=== PATIENT | male | born 1940 ===

== ENCOUNTER 2018-03-23 14:29 | Inpatient (IN) | payer OTHER ==
[2018-03-23 18:43] VITALS: BMI 28.0
--- NOTE | 2018-03-23 21:04 | CP.PCM.HP ---
History of Present Illness - History of Present Illness History of Present Illness: PMD: Nilson Richmond MD Chief Complaint: Right knee Surgery The patient was seen and examined in the TCU HPI: 77 years old male with hx of CAD, HTN, Hearing impairment and osteoarthritis was transferred from the [facility] here to the [facility] for continued treatment. He was admitted to the [facility] on 03/20/18 for an elective Right Total knee replacement. He is now post surgery only referring mild to moderate pain to the right knee, no fever, no bleeding. He does refer SOB and coughing. PMH: CAD; HTN; HLD; Generalized Tremors; Hearing impairment; Bilateral Cataract ; Anxiety; Arthritis PSH: PTCA; Right shoulder Fracture repaired SH: Never Smoked; No illegal drug use; No Alcohol; Live alone FH: States: No known family Hx Allergies: NKDA Medication: Reviewed Present on Admission - Present on Admission Any Indicators Present on Admission: No History of DVT/PE: No History of Uncontrolled Diabetes: No Urinary Catheter: No Decubitus Ulcer Present: No Review of Systems - Constitutional Constitutional: absent: Fatigue, Fever, Headache - EENT Eyes: absent: Floaters, Itchy Eyes, Requires Corrective Lenses, Sees Flashes Ears: absent: Decreased Hearing, Ear Pain, Tinnitus Nose/Mouth/Throat: absent: Epistaxis, Nasal Congestion - Cardiovascular Cardiovascular: Dyspnea. absent: Chest Pain, Edema - Respiratory Respiratory: Cough, Dyspnea. absent: Wheezing, Stridor - Gastrointestinal Gastrointestinal: Abdominal Pain, Belching, Constipation, Nausea, Vomiting - Musculoskeletal Additional comments: Right knee Total Replacement - Integumentary Integumentary: absent: Pruritus, Rash, Skin Ulcer, Sores, Striae, Swelling - Neurological Neurological: absent: Confusion, Dizziness, Numbness, Focal Weakness, Weakness - Psychiatric Psychiatric: Anxiety. absent: Depression, Panic Attacks - Endocrine Endocrine: absent: Palpitations, Polydipsia, Polyphagia, Polyuria - Hematologic/Lymphatic Hematologic: absent: Easy Bleeding, Easy Bruising Past Patient History - Past Medical History & Family History Past Medical History?: Yes - Past Social History Smoking Status: Never Smoked Chewing Tobacco Use: No Cigar Use: No Alcohol: None Drugs: Denies Home Situation {Lives}: With Family - CARDIAC Hx Cardiac Disorders: Yes Hx Hypercholesterolemia: Yes Hx Hypertension: Yes - PULMONARY Hx Respiratory Disorders: No - NEUROLOGICAL Hx Neurological Disorder: Yes Hx Dizziness: Yes (NO MEDICATIONS FOR DIZZINESS) Other/Comment: GENERALIZED TREMORS NO DX - HEENT Hx HEENT Problems: Yes (DECREASED IN HEARING-NO HEARING AIDS) Hx Cataracts: Yes (BILAT. NO SURGERY) - RENAL Hx Chronic Kidney Disease: No - ENDOCRINE/METABOLIC Hx Endocrine Disorders: No - MUSCULOSKELETAL/RHEUMATOLOGICAL Hx Arthritis: Yes - GASTROINTESTINAL Hx Gastrointestinal Disorders: No - GENITOURINARY/GYNECOLOGICAL Hx Genitourinary Disorders: No - PSYCHIATRIC Hx Substance Use: No - SURGICAL HISTORY Hx Surgeries: Yes Hx Angioplasty: Yes (X 8- 10 YEARS AGO) Hx Cardiac Catheterization: Yes Hx Orthopedic Surgery: Yes (right shoulder) Other/Comment: Rt. Knee Arthroplasty,Total Knee Replacement.03/20/18 - ANESTHESIA Hx Anesthesia: Yes Hx Anesthesia Reactions: No Hx Malignant Hyperthermia: No Meds Allergies/Adverse Reactions: Allergies Allergy/AdvReac Type Severity Reaction Status Date / Time No Known Allergies Allergy Verified 03/23/18 18:43 Physical Exam - Constitutional Appears: No Acute Distress - Head Exam Head Exam: ATRAUMATIC, NORMAL INSPECTION, NORMOCEPHALIC - Eye Exam Eye Exam: EOMI, Normal appearance Pupil Exam: NORMAL ACCOMODATION, PERRL - ENT Exam ENT Exam: Mucous Membranes Moist, Normal Exam, Normal External Ear Exam, Normal Oropharynx - Neck Exam Neck exam: Positive for: Full Rom, Normal Inspection. Negative for: Lymphadenopathy, Tenderness - Respiratory Exam Respiratory Exam: Clear to Auscultation Bilateral. absent: Rales, Rhonchi, Wheezes - Cardiovascular Exam Cardiovascular Exam: REGULAR RHYTHM, RRR, +S1, +S2. absent: Gallop, Systolic Murmur - GI/Abdominal Exam GI & Abdominal Exam: Normal Bowel Sounds. absent: Mass, Organomegaly, Soft, Tenderness - Rectal Exam Rectal Exam: Deferred - Extremities Exam Additional comments: Right knee immobilizer in place - Back Exam Back exam: NORMAL INSPECTION. absent: CVA tenderness (L), CVA tenderness (R) - Neurological Exam Neurological exam: Alert, CN II-XII Intact, Oriented x3, Reflexes Normal - Psychiatric Exam Psychiatric exam: Normal Affect, Normal Mood - Skin Skin Exam: Dry, Intact, Normal Color, Warm Results - Vital Signs Recent Vital Signs: Last Vital Signs Temp 97.5 F L 03/23/18 18:52 Pulse 87 03/23/18 18:52 Resp 20 03/23/18 18:52 BP 143/76 03/23/18 18:52 Pulse Ox 90 L 03/23/18 18:52 Assessment & Plan - Assessment and Plan (Free Text) Assessment: #. Osteoarthritis s/p right TKR #. HTN #. CAD #. Blood loss Anemia #. Vitamin D Difficiency Plan: 77 years old male with hx of CAD, HTN, Hearing impairment and osteoarthritis was transferred from the [facility] for continued treatment. He was admitted to the [facility] on 03/20/18 for an elective Right Total knee replacement. He is now post surgery only referring mild to moderate pain to the right knee, no fever, no bleeding. He does refer SOB and coughing. #. Osteoarthritis s/p right TKR - Pain management - OT/PT -To follow up with Dr Louis Orthopedist in 2 weeks #. HTN - lopressor/ losartan/amlodipine - follow blood Pressure #. CAD s/p PTCA - ASA/ Lipitor #. Blood loss Anemia - follow HB #. Vitamin D Deficiency - vitamin D #. DVT prophylaxis with Lovenox #. Code Status: Full - Date & Time Date: 03/23/18 Time: 21:04
[2018-03-23] MEDS ORDERED: Ergocalciferol 50,000 Intl Units Cap PO SCH (21:15)
[2018-03-23] MEDS: Tiotropium 18 mcg Cap For Inhalation INH SCH (22:55)
[2018-03-24] MEDS: Albuterol-Ipratrop 3 mg / 0.5 (3 ml) UD INH SCH ×4 (01:00→19:32)
[2018-03-24] MEDS: Oxycodone/Acetaminophen 5/325 mg Tab PO PRN ×3 (01:18→23:29)
[2018-03-24 08:03] LABS: BASO % 0.3 % (0.0-2.0); HEMOGLOBIN 11.4 g/dL (12.0-18.0); LYMPH # 1.3 K/uL (1.0-4.3); LYMPH % 10.4 % (20.0-40.0); MEAN CELL VOLUME 95.1 fl (80.0-94.0); MEAN CORPUSCULAR HEMOGLOBIN 32.2 pg (27.0-31.0); MEAN CORPUSCULAR HGB CONC 33.8 g/dL (33.0-37.0); MEAN PLATELET VOLUME 9.4 fl (7.2-11.7); MONO % 8.5 % (0.0-10.0); NEUT # 9.8 K/uL (1.8-7.0); NEUT % 80.8 % (50.0-75.0); RBC 3.54 Mil/uL (4.40-5.90); RED CELL DISTRIBUTION WIDTH 13.9 % (11.5-14.5); WHITE BLOOD COUNT 12.1 K/uL (4.8-10.8)
[2018-03-24] MEDS: Enoxaparin 40 mg Syringe SC SCH (08:18)
[2018-03-24 08:20] LABS: PARTIAL THROMBOPLASTIN TIME 26.2 Seconds (25.6-37.1); PROTHROMBIN TIME 11.6 Seconds (9.8-13.1)
[2018-03-24 08:21] LABS: ALB/GLOB RATIO 0.9 (1.0-2.1); ALBUMIN 3.4 g/dL (3.5-5.0); ALT/SGPT 61 U/L (21-72); AST/SGOT 76 U/L (17-59); BLOOD UREA NITROGEN 23 mg/dl (9-20); CALCIUM 8.8 mg/dL (8.4-10.2); GFR AFRICAN-AMERICAN > 60; GFR NON-AFRICAN AMERICAN > 60
--- NOTE | 2018-03-24 18:56 | CP.PCM.CON ---
History of Present Illness - History of Present Illness History of Present Illness: 77 year old male admitted to TCU after a Right Total knee replacement, with history of OA, CAD HTN Review of Systems - Musculoskeletal Musculoskeletal: Abnormal Gait, Limited Range of Motion, Muscle Weakness Past Patient History - Past Medical History & Family History Past Medical History?: Yes - Past Social History Smoking Status: Never Smoked Chewing Tobacco Use: No Cigar Use: No Alcohol: None Drugs: Denies Home Situation {Lives}: With Family - CARDIAC Hx Hypertension: Yes - PULMONARY Hx Respiratory Disorders: No - NEUROLOGICAL Hx Neurological Disorder: Yes Hx Dizziness: Yes (NO MEDICATIONS FOR DIZZINESS) Other/Comment: GENERALIZED TREMORS NO DX - HEENT Hx HEENT Problems: Yes (DECREASED IN HEARING-NO HEARING AIDS) Hx Cataracts: Yes (BILAT. NO SURGERY) - RENAL Hx Chronic Kidney Disease: No - ENDOCRINE/METABOLIC Hx Endocrine Disorders: No - MUSCULOSKELETAL/RHEUMATOLOGICAL Hx Arthritis: Yes - GASTROINTESTINAL Hx Gastrointestinal Disorders: No - GENITOURINARY/GYNECOLOGICAL Hx Genitourinary Disorders: No - PSYCHIATRIC Hx Substance Use: No - SURGICAL HISTORY Hx Surgeries: Yes Hx Angioplasty: Yes (X 8- 10 YEARS AGO) Hx Cardiac Catheterization: Yes Hx Orthopedic Surgery: Yes (right shoulder) Other/Comment: Rt. Knee Arthroplasty,Total Knee Replacement.03/20/18 - ANESTHESIA Hx Anesthesia: Yes Hx Anesthesia Reactions: No Hx Malignant Hyperthermia: No Meds Allergies/Adverse Reactions: Allergies Allergy/AdvReac Type Severity Reaction Status Date / Time No Known Allergies Allergy Verified 03/23/18 18:43 - Medications Medications: Current Medications Albuterol/Ipratropium (Duoneb 3 Mg/0.5 Mg (3 Ml) Ud) 3 ml INH RQ6 [facility] Last Admin: 03/24/18 13:10 Dose: 3 ml Amlodipine Besylate (Norvasc) 5 mg PO DAILY [facility] Last Admin: 03/24/18 08:20 Dose: 5 mg Aspirin (Ecotrin) 81 mg PO DAILY [facility] Last Admin: 03/24/18 08:19 Dose: 81 mg Atorvastatin Calcium (Lipitor) 20 mg PO DAILY [facility] Last Admin: 03/24/18 08:19 Dose: 20 mg Azithromycin (Zithromax) 500 mg PO DAILY [facility] PRN Reason: Protocol Stop: 03/27/18 09:01 Last Admin: 03/24/18 08:19 Dose: 500 mg Calcium Carbonate (Oscal) 500 mg PO DAILY [facility] Last Admin: 03/24/18 08:19 Dose: 500 mg Docusate Sodium (Colace) 100 mg PO TID [facility] Last Admin: 03/24/18 16:39 Dose: 100 mg Donepezil HCl (Aricept) 5 mg PO DAILY [facility] Last Admin: 03/24/18 08:21 Dose: 5 mg Enoxaparin Sodium (Lovenox) 40 mg SC DAILY [facility] PRN Reason: Protocol Last Admin: 03/24/18 08:18 Dose: 40 mg Ergocalciferol (Drisdol 50,000 Intl Units Cap) 1 cap PO Q7D [facility] Last Admin: 03/23/18 22:55 Dose: 1 cap Losartan Potassium (Cozaar) 100 mg PO DAILY [facility] Last Admin: 03/24/18 08:21 Dose: 100 mg Metoprolol Tartrate (Lopressor) 50 mg PO BID [facility] Last Admin: 03/24/18 16:38 Dose: 50 mg Oxycodone/Acetaminophen (Percocet 5/325 Mg Tab) 1 tab PO Q4 PRN PRN Reason: Pain, moderate (4-7) Stop: 03/26/18 21:07 Last Admin: 03/24/18 16:38 Dose: 1 tab Oxycodone/Acetaminophen (Percocet 5/325 Mg Tab) 2 tab PO Q4 PRN PRN Reason: Pain, severe (8-10) Stop: 03/26/18 22:02 Last Admin: 03/24/18 01:18 Dose: 2 tab Pregabalin (Lyrica) 50 mg PO BID [facility] Last Admin: 03/24/18 16:37 Dose: 50 mg Primidone (Mysoline) 50 mg PO BID [facility] Last Admin: 03/24/18 16:39 Dose: 50 mg Sennosides (Senokot Tab) 17.2 mg PO [facility] Last Admin: 03/23/18 22:55 Dose: Not Given Tiotropium [place] (Spiriva) 18 mcg INH Q24H [facility] Last Admin: 03/23/18 22:55 Dose: 18 mcg Trazodone HCl (Desyrel) 100 mg PO [facility] Last Admin: 03/23/18 22:54 Dose: 100 mg Physical Exam - Constitutional Appears: Well - Head Exam Head Exam: ATRAUMATIC, NORMAL INSPECTION, NORMOCEPHALIC - Eye Exam Eye Exam: EOMI, Normal appearance Pupil Exam: NORMAL ACCOMODATION, PERRL - ENT Exam ENT Exam: Mucous Membranes Moist, Normal Exam - Neck Exam Neck exam: Positive for: Normal Inspection - Respiratory Exam Respiratory Exam: Clear to Auscultation Bilateral, NORMAL BREATHING PATTERN - Cardiovascular Exam Cardiovascular Exam: REGULAR RHYTHM - GI/Abdominal Exam GI & Abdominal Exam: Normal Bowel Sounds - Rectal Exam Rectal Exam: NORMAL INSPECTION - Exam External exam: NORMAL EXTERNAL EXAM - Extremities Exam Extremities exam: Positive for: normal inspection Additional comments: right leg weakness - Back Exam Back exam: NORMAL INSPECTION - Neurological Exam Neurological exam: Alert, CN II-XII Intact - Psychiatric Exam Psychiatric exam: Normal Affect - Skin Skin Exam: Dry, Normal Color Results - Vital Signs Recent Vital Signs: Last Vital Signs Temp 98.2 F 03/24/18 17:04 Pulse 81 03/24/18 17:04 Resp 20 03/24/18 17:04 BP 129/64 03/24/18 17:04 Pulse Ox 92 L 03/24/18 17:04 - Labs Result Diagrams: 03/24/18 06:30 03/24/18 06:30 Labs: Laboratory Results - last 24 hr 03/24/18 03/24/18 03/24/18 06:30 06:30 06:30 WBC 12.1 H RBC 3.54 L Hgb 11.4 L Hct 33.7 L MCV 95.1 H MCH 32.2 H MCHC 33.8 RDW 13.9 Plt Count 182 MPV 9.4 Neut % (Auto) 80.8 H Lymph % (Auto) 10.4 L [place] % (Auto) 8.5 Eos % (Auto) 0.0 Baso % (Auto) 0.3 Neut # (Auto) 9.8 H Lymph # (Auto) 1.3 [place] # (Auto) 1.0 H Eos # (Auto) 0.0 Baso # (Auto) 0.0 PT 11.6 INR 1.0 APTT 26.2 Sodium 138 Potassium 4.0 Chloride 98 Carbon Dioxide 26 Anion Gap 18 BUN 23 H Creatinine 1.1 Est GFR ( Amer) > 60 Est GFR (Non-Af Amer) > 60 POC Glucose (mg/dL) Random Glucose 132 H Calcium 8.8 Total Bilirubin 0.6 AST 76 H D ALT 61 Alkaline Phosphatase 70 Total Protein 7.2 Albumin 3.4 L Globulin 3.7 Albumin/Globulin Ratio 0.9 L 03/24/18 10:56 WBC RBC Hgb Hct MCV MCH MCHC RDW Plt Count MPV Neut % (Auto) Lymph % (Auto) [place] % (Auto) Eos % (Auto) Baso % (Auto) Neut # (Auto) Lymph # (Auto) [place] # (Auto) Eos # (Auto) Baso # (Auto) PT INR APTT Sodium Potassium Chloride Carbon Dioxide Anion Gap BUN Creatinine Est GFR ( Amer) Est GFR (Non-Af Amer) POC Glucose (mg/dL) 145 H Random Glucose Calcium Total Bilirubin AST ALT Alkaline Phosphatase Total Protein Albumin Globulin Albumin/Globulin Ratio Assessment & Plan (1) Acute blood loss anemia Status: Acute (2) Primary osteoarthritis of right knee Assessment and Plan: status post R total knee replacement for , physical, occupational therapy quad strengthening , range of motion gait training Status: Acute (3) Screen for colon cancer Status: Acute Priority: Medium Onset Date: 05/28/14 (4) HTN (hypertension) Status: Chronic (5) Internal hemorrhoid Status: Chronic Priority: Medium (6) Vitamin D deficiency Status: Chronic
[2018-03-24] MEDS: Tiotropium 18 mcg Cap For Inhalation INH SCH (21:13)
[2018-03-25] MEDS: Albuterol-Ipratrop 3 mg / 0.5 (3 ml) UD INH SCH ×4 (01:03→19:00)
[2018-03-25] MEDS: Enoxaparin 40 mg Syringe SC SCH (08:17)
[2018-03-25] MEDS: Oxycodone/Acetaminophen 5/325 mg Tab PO PRN ×2 (10:53→19:23)
[2018-03-25] MEDS: Tiotropium 18 mcg Cap For Inhalation INH SCH (21:18)
[2018-03-26] MEDS: Albuterol-Ipratrop 3 mg / 0.5 (3 ml) UD INH SCH ×4 (01:43→19:13)
[2018-03-26] MEDS: Enoxaparin 40 mg Syringe SC SCH (08:20)
[2018-03-26] MEDS: Oxycodone/Acetaminophen 5/325 mg Tab PO PRN ×2 (09:38→13:28)
[2018-03-26] MEDS: Tiotropium 18 mcg Cap For Inhalation INH SCH (21:32)
[2018-03-26] MEDS ORDERED: Alum-Mag Hydrox-Simethicone Susp (30 mL) PO ONE (23:51)
[2018-03-27] MEDS: Albuterol-Ipratrop 3 mg / 0.5 (3 ml) UD INH SCH ×4 (01:00→19:18)
[2018-03-27] MEDS ORDERED: Oxycodone/Acetaminophen 5/325 mg Tab PO PRN ×2 (05:45→05:46)
[2018-03-27 06:31] LABS: HEMOGLOBIN 11.9 g/dL (12.0-18.0); MEAN CELL VOLUME 95.9 fl (80.0-94.0); MEAN CORPUSCULAR HEMOGLOBIN 32.7 pg (27.0-31.0); MEAN CORPUSCULAR HGB CONC 34.2 g/dL (33.0-37.0); RBC 3.64 Mil/uL (4.40-5.90); RED CELL DISTRIBUTION WIDTH 14.1 % (11.5-14.5); WHITE BLOOD COUNT 10.2 K/uL (4.8-10.8)
[2018-03-27 06:42] LABS: BLOOD UREA NITROGEN 20 mg/dl (9-20); CALCIUM 8.8 mg/dL (8.4-10.2); GFR AFRICAN-AMERICAN > 60; GFR NON-AFRICAN AMERICAN > 60
[2018-03-27] MEDS: Enoxaparin 40 mg Syringe SC SCH (08:33)
--- NOTE | 2018-03-27 10:30 | CP.PCM.PN ---
Subjective - Date & Time of Evaluation Date of Evaluation: 03/27/18 Time of Evaluation: 10:29 - Subjective Subjective: +abd pain, distention, soft emesis x1 this AM, BM this AM flat plate +ileus GI consult NPO, maintenance fluids, following electrolytes HD stable Objective - Vital Signs/Intake and Output Vital Signs (last 24 hours): Temp Pulse Resp BP Pulse Ox 98.1 F 97 H 20 161/86 H 90 L 03/27/18 08:15 03/27/18 09:10 03/27/18 08:15 03/27/18 09:10 03/27/18 08:15 - Medications Medications: Current Medications Albuterol/Ipratropium (Duoneb 3 Mg/0.5 Mg (3 Ml) Ud) 3 ml INH RQ6 [facility] Last Admin: 03/27/18 07:29 Dose: 3 ml Amlodipine Besylate (Norvasc) 5 mg PO DAILY [facility] Last Admin: 03/27/18 09:10 Dose: 5 mg Aspirin (Ecotrin) 81 mg PO DAILY [facility] Last Admin: 03/27/18 08:32 Dose: 81 mg Atorvastatin Calcium (Lipitor) 20 mg PO DAILY@2100 [facility] Last Admin: 03/26/18 21:31 Dose: 20 mg Calcium Carbonate (Oscal) 500 mg PO DAILY [facility] Last Admin: 03/26/18 08:20 Dose: 500 mg Docusate Sodium (Colace) 100 mg PO TID [facility] Last Admin: 03/26/18 17:25 Dose: 100 mg Donepezil HCl (Aricept) 5 mg PO DAILY [facility] Last Admin: 03/27/18 08:30 Dose: 5 mg Enoxaparin Sodium (Lovenox) 40 mg SC DAILY [facility] PRN Reason: Protocol Last Admin: 03/27/18 08:33 Dose: 40 mg Ergocalciferol (Drisdol 50,000 Intl Units Cap) 1 cap PO Q7D [facility] Last Admin: 03/23/18 22:55 Dose: 1 cap Losartan Potassium (Cozaar) 100 mg PO DAILY [facility] Last Admin: 03/27/18 08:31 Dose: 100 mg Metoprolol Tartrate (Lopressor) 50 mg PO BID [facility] Last Admin: 03/27/18 08:33 Dose: 50 mg Oxycodone/Acetaminophen (Percocet 5/325 Mg Tab) 1 tab PO Q4 PRN PRN Reason: Pain, moderate (4-7) Stop: 03/30/18 05:46 Oxycodone/Acetaminophen (Percocet 5/325 Mg Tab) 2 tab PO Q4 PRN PRN Reason: Pain, severe (8-10) Stop: 03/30/18 05:47 Pantoprazole Sodium (Protonix Inj) 40 mg IVP DAILY [facility] Pregabalin (Lyrica) 50 mg PO BID [facility] Last Admin: 03/26/18 17:25 Dose: 50 mg Primidone (Mysoline) 50 mg PO BID [facility] Last Admin: 03/27/18 09:10 Dose: 50 mg Sennosides (Senokot Tab) 17.2 mg PO [facility] Last Admin: 03/26/18 21:32 Dose: 17.2 mg Tiotropium [place] (Spiriva) 18 mcg INH Q24H [facility] Last Admin: 03/26/18 21:32 Dose: 18 mcg Trazodone HCl (Desyrel) 100 mg PO [facility] Last Admin: 03/26/18 21:31 Dose: 100 mg - Labs Labs: 03/27/18 05:30 03/27/18 05:30 PT 11.6 Seconds (9.8-13.1) 03/24/18 06:30 INR 1.0 (0.9-1.2) 03/24/18 06:30 APTT 26.2 Seconds (25.6-37.1) 03/24/18 06:30 Vitals Reviewed GEN: WDWN, alert, cooperative HEENT: NCAT, PERRL, EOMI HEART: RRR, +S1S2, NO MRG LUNG: CTAB, NO WRR ABD: soft, distended, mild tenderness, diminished BS EXT: normal pedal pulses, normal capillary refill NEURO: awake, alert, no focal deficits SKIN: warm, dry PSYCH: normal mood, normal affect Assessment and Plan - Assessment and Plan (Free Text) Plan: 77 years old male with hx of CAD, HTN, Hearing impairment and osteoarthritis was transferred from the [facility] for continued treatment. He was admitted to the [facility] on 03/20/18 for an elective Right Total knee replacement. He is now post surgery only referring mild to moderate pain to the right knee, no fever, no bleeding. He does refer SOB and coughing. #.Ileus - emesis x1, abd pain and distension this AM, diminished BS - pt reports BM this AM - Obstructive Series +ileus - NPO, HOLD opioids, maintenance fluids, follow electrolytes, added Mg and Phos - GI consult appreciated, Dr. Quintanilla #. Osteoarthritis s/p right TKR - Pain management with Toradol given Ileus - OT/PT -To follow up with Dr Louis Orthopedist in 2 weeks #. HTN - lopressor/ losartan/amlodipine - follow blood Pressure #. CAD s/p PTCA - ASA/ Lipitor #. Blood loss Anemia - follow HB #. Vitamin D Deficiency - vitamin D #. DVT prophylaxis with Lovenox #. Code Status: Full
--- NOTE | 2018-03-27 12:08 | RAD ---
PROCEDURE: Radiographs of the chest and abdomen (obstructive series) HISTORY: abd distention and pain COMPARISON: No prior. TECHNIQUE: AP radiograph of the chest, with upright and supine radiographs of the abdomen. FINDINGS: CHEST: Limited patchy densities questioned lateral to the left heart border with a right chest clear. Cardiac silhouette appears small prominent but is likely at least in part technically magnified. Pulmonary pattern is borderline increased for consider potential limited CHF. No pleural effusion pneumothorax bilaterally. ABDOMEN AND PELVIS: Distended large bowel loops are identified filled with gas with a mild amount seen in the distal rectosigmoid. A limited amount of gas seen scattered throughout central small bowel loops with gas mildly distending the apparent gastric viscus somewhat. The overall pattern is likely reflective of an ileus though a distal large bowel extra obstruction is the differential diagnosis. No air-fluid levels are appreciable grossly and there is no free intraperitoneal gas either. Further clinical correlation is advised. IMPRESSION: Findings most compatible bowel ileus rather than distal large bowel obstruction though clinical correlation is advised. No free intraperitoneal gas appreciable. Borderline CHF pattern. Limited patchy atelectasis or infiltrate lateral to the left heart border.
[2018-03-27] MEDS: Potassium Ch 20mEq in D5-1/2NS 1,000 ML IV SCH ×2 (13:59→21:12)
--- NOTE | 2018-03-27 14:09 | CP.PCM.PN ---
Subjective - Date & Time of Evaluation Date of Evaluation: 03/25/18 Time of Evaluation: 12:00 - Subjective Subjective: no acute complaints at present Objective - Vital Signs/Intake and Output Vital Signs (last 24 hours): Temp Pulse Resp BP Pulse Ox 98.1 F 97 H 20 161/86 H 90 L 03/27/18 08:15 03/27/18 09:10 03/27/18 08:15 03/27/18 09:10 03/27/18 08:15 - Medications Medications: Current Medications Albuterol/Ipratropium (Duoneb 3 Mg/0.5 Mg (3 Ml) Ud) 3 ml INH RQ6 [facility] Last Admin: 03/27/18 13:41 Dose: 3 ml Amlodipine Besylate (Norvasc) 5 mg PO DAILY [facility] Last Admin: 03/27/18 09:10 Dose: 5 mg Aspirin (Ecotrin) 81 mg PO DAILY [facility] Last Admin: 03/27/18 08:32 Dose: 81 mg Atorvastatin Calcium (Lipitor) 20 mg PO DAILY@2100 [facility] Last Admin: 03/26/18 21:31 Dose: 20 mg Calcium Carbonate (Oscal) 500 mg PO DAILY [facility] Last Admin: 03/27/18 09:19 Dose: Not Given Docusate Sodium (Colace) 100 mg PO TID [facility] Last Admin: 03/27/18 12:20 Dose: Not Given Donepezil HCl (Aricept) 5 mg PO DAILY [facility] Last Admin: 03/27/18 08:30 Dose: 5 mg Enoxaparin Sodium (Lovenox) 40 mg SC DAILY [facility] PRN Reason: Protocol Last Admin: 03/27/18 08:33 Dose: 40 mg Ergocalciferol (Drisdol 50,000 Intl Units Cap) 1 cap PO Q7D [facility] Last Admin: 03/23/18 22:55 Dose: 1 cap Potassium Chloride/Dextrose/Sod Cl (Potassium Chl 20 Meq In D5-1/2ns) 1,000 mls @ 125 mls/hr IV .Q8H [facility] Stop: 03/28/18 12:39 Ketorolac Tromethamine (Toradol) 30 mg IVP Q6 PRN PRN Reason: Pain, severe (8-10) Ketorolac Tromethamine (Toradol) 15 mg IVP Q6 PRN PRN Reason: Pain, moderate (4-7) Losartan Potassium (Cozaar) 100 mg PO DAILY [facility] Last Admin: 03/27/18 08:31 Dose: 100 mg Metoprolol Tartrate (Lopressor) 50 mg PO BID [facility] Last Admin: 03/27/18 08:33 Dose: 50 mg Oxycodone/Acetaminophen (Percocet 5/325 Mg Tab) 1 tab PO Q4 PRN PRN Reason: Pain, moderate (4-7) Stop: 03/30/18 05:46 Oxycodone/Acetaminophen (Percocet 5/325 Mg Tab) 2 tab PO Q4 PRN PRN Reason: Pain, severe (8-10) Stop: 03/30/18 05:47 Pantoprazole Sodium (Protonix Inj) 40 mg IVP DAILY [facility] Last Admin: 03/27/18 10:41 Dose: 40 mg Pregabalin (Lyrica) 50 mg PO BID [facility] Last Admin: 03/27/18 09:18 Dose: Not Given Primidone (Mysoline) 50 mg PO BID [facility] Last Admin: 03/27/18 09:10 Dose: 50 mg Sennosides (Senokot Tab) 17.2 mg PO [facility] Last Admin: 03/26/18 21:32 Dose: 17.2 mg Tiotropium [place] (Spiriva) 18 mcg INH Q24H [facility] Last Admin: 03/26/18 21:32 Dose: 18 mcg Trazodone HCl (Desyrel) 100 mg PO [facility] Last Admin: 03/26/18 21:31 Dose: 100 mg - Labs Labs: 03/27/18 05:30 03/27/18 05:30 PT 11.6 Seconds (9.8-13.1) 03/24/18 06:30 INR 1.0 (0.9-1.2) 03/24/18 06:30 APTT 26.2 Seconds (25.6-37.1) 03/24/18 06:30 - Head Exam Head Exam: ATRAUMATIC, NORMAL INSPECTION, NORMOCEPHALIC - Eye Exam Eye Exam: EOMI, Normal appearance, PERRL Pupil Exam: NORMAL ACCOMODATION - ENT Exam ENT Exam: Mucous Membranes Moist, Normal Exam - Neck Exam Neck Exam: Full ROM, Normal Inspection - Respiratory Exam Respiratory Exam: NORMAL BREATHING PATTERN - Cardiovascular Exam Cardiovascular Exam: REGULAR RHYTHM - GI/Abdominal Exam GI & Abdominal Exam: Soft, Normal Bowel Sounds - Rectal Exam Rectal Exam: NORMAL INSPECTION - Exam External exam: NORMAL EXTERNAL EXAM - Extremities Exam Extremities Exam: Full ROM, Normal Capillary Refill - Back Exam Back Exam: NORMAL INSPECTION - Neurological Exam Neurological Exam: Alert, Awake Neuro motor strength exam: Left Upper Extremity: 4, Right Upper Extremity: 4, Left Lower Extremity: 4, Right Lower Extremity: 3 - Psychiatric Exam Psychiatric exam: Normal Affect, Normal Mood - Skin Skin Exam: Dry, Intact Assessment and Plan (1) Acute blood loss anemia Status: Acute (2) Primary osteoarthritis of right knee Assessment & Plan: plan for physical, occupational therapy Status: Acute (3) Screen for colon cancer Status: Acute (4) HTN (hypertension) Status: Chronic (5) Internal hemorrhoid Status: Chronic (6) Vitamin D deficiency Status: Chronic
--- NOTE | 2018-03-27 14:11 | CP.PCM.PN ---
Subjective - Date & Time of Evaluation Date of Evaluation: 03/27/18 Time of Evaluation: 13:00 - Subjective Subjective: no acute knne pain Objective - Vital Signs/Intake and Output Vital Signs (last 24 hours): Temp Pulse Resp BP Pulse Ox 98.1 F 97 H 20 161/86 H 90 L 03/27/18 08:15 03/27/18 09:10 03/27/18 08:15 03/27/18 09:10 03/27/18 08:15 - Medications Medications: Current Medications Albuterol/Ipratropium (Duoneb 3 Mg/0.5 Mg (3 Ml) Ud) 3 ml INH RQ6 [facility] Last Admin: 03/27/18 13:41 Dose: 3 ml Amlodipine Besylate (Norvasc) 5 mg PO DAILY [facility] Last Admin: 03/27/18 09:10 Dose: 5 mg Aspirin (Ecotrin) 81 mg PO DAILY [facility] Last Admin: 03/27/18 08:32 Dose: 81 mg Atorvastatin Calcium (Lipitor) 20 mg PO DAILY@2100 [facility] Last Admin: 03/26/18 21:31 Dose: 20 mg Calcium Carbonate (Oscal) 500 mg PO DAILY [facility] Last Admin: 03/27/18 09:19 Dose: Not Given Docusate Sodium (Colace) 100 mg PO TID [facility] Last Admin: 03/27/18 12:20 Dose: Not Given Donepezil HCl (Aricept) 5 mg PO DAILY [facility] Last Admin: 03/27/18 08:30 Dose: 5 mg Enoxaparin Sodium (Lovenox) 40 mg SC DAILY [facility] PRN Reason: Protocol Last Admin: 03/27/18 08:33 Dose: 40 mg Ergocalciferol (Drisdol 50,000 Intl Units Cap) 1 cap PO Q7D [facility] Last Admin: 03/23/18 22:55 Dose: 1 cap Potassium Chloride/Dextrose/Sod Cl (Potassium Chl 20 Meq In D5-1/2ns) 1,000 mls @ 125 mls/hr IV .Q8H [facility] Stop: 03/28/18 12:39 Ketorolac Tromethamine (Toradol) 30 mg IVP Q6 PRN PRN Reason: Pain, severe (8-10) Ketorolac Tromethamine (Toradol) 15 mg IVP Q6 PRN PRN Reason: Pain, moderate (4-7) Losartan Potassium (Cozaar) 100 mg PO DAILY [facility] Last Admin: 03/27/18 08:31 Dose: 100 mg Metoprolol Tartrate (Lopressor) 50 mg PO BID [facility] Last Admin: 03/27/18 08:33 Dose: 50 mg Oxycodone/Acetaminophen (Percocet 5/325 Mg Tab) 1 tab PO Q4 PRN PRN Reason: Pain, moderate (4-7) Stop: 03/30/18 05:46 Oxycodone/Acetaminophen (Percocet 5/325 Mg Tab) 2 tab PO Q4 PRN PRN Reason: Pain, severe (8-10) Stop: 03/30/18 05:47 Pantoprazole Sodium (Protonix Inj) 40 mg IVP DAILY [facility] Last Admin: 03/27/18 10:41 Dose: 40 mg Pregabalin (Lyrica) 50 mg PO BID [facility] Last Admin: 03/27/18 09:18 Dose: Not Given Primidone (Mysoline) 50 mg PO BID [facility] Last Admin: 03/27/18 09:10 Dose: 50 mg Sennosides (Senokot Tab) 17.2 mg PO [facility] Last Admin: 03/26/18 21:32 Dose: 17.2 mg Tiotropium [place] (Spiriva) 18 mcg INH Q24H [facility] Last Admin: 03/26/18 21:32 Dose: 18 mcg Trazodone HCl (Desyrel) 100 mg PO [facility] Last Admin: 03/26/18 21:31 Dose: 100 mg - Labs Labs: 03/27/18 05:30 03/27/18 05:30 PT 11.6 Seconds (9.8-13.1) 03/24/18 06:30 INR 1.0 (0.9-1.2) 03/24/18 06:30 APTT 26.2 Seconds (25.6-37.1) 03/24/18 06:30 - Head Exam Head Exam: ATRAUMATIC, NORMAL INSPECTION, NORMOCEPHALIC - Eye Exam Eye Exam: EOMI, Normal appearance, PERRL Pupil Exam: NORMAL ACCOMODATION - ENT Exam ENT Exam: Mucous Membranes Moist, Normal Exam - Neck Exam Neck Exam: Full ROM, Normal Inspection - Respiratory Exam Respiratory Exam: NORMAL BREATHING PATTERN - Cardiovascular Exam Cardiovascular Exam: REGULAR RHYTHM - GI/Abdominal Exam GI & Abdominal Exam: Soft, Normal Bowel Sounds - Rectal Exam Rectal Exam: NORMAL INSPECTION - Exam External exam: NORMAL EXTERNAL EXAM - Extremities Exam Extremities Exam: Full ROM, Normal Capillary Refill, Normal Inspection - Back Exam Back Exam: NORMAL INSPECTION - Neurological Exam Neurological Exam: Alert, Awake Neuro motor strength exam: Left Upper Extremity: 4, Right Upper Extremity: 4, Left Lower Extremity: 4, Right Lower Extremity: 3 - Psychiatric Exam Psychiatric exam: Normal Affect, Normal Mood - Skin Skin Exam: Dry, Intact Assessment and Plan (1) Acute blood loss anemia Status: Acute (2) Primary osteoarthritis of right knee Assessment & Plan: R TKR pt, OT rec quad stregthening, transfers and gait training Status: Acute (3) Screen for colon cancer Status: Acute (4) HTN (hypertension) Status: Chronic (5) Internal hemorrhoid Status: Chronic (6) Vitamin D deficiency Status: Chronic
--- NOTE | 2018-03-27 14:17 | CP.PCM.CON ---
History of Present Illness - History of Present Illness History of Present Illness: PGY5 GI Fellow Consult Note Patient is a 77yo male with PMHx significant for CAD, HTN, OA who is currently in TCU following right total knee replacement. We have been consulted as the patient has developed abdominal distention and scant bowel movements with concern for post-operative ileus. Over the last 4 days patient has noted worsening abdominal distention but admits to continued passage of flatus and stool. States that he had solid stool output yesterday followed by minimal amount of loose, watery stool today. An obstructive series was performed which does reveal a possible ileus. 12 system ROS performed and negative except where stated. PMHx: See HPI PSHx: PCI, Right shoulder Fracture repair, right knee total replacement FHx: Reviewed, patient denies significant history Social: Denies tobacco, EtOH or illicit drug use Endo: 05/2014 - colonoscopy - internal hemorrhoids - no further screening required Past Patient History - Past Medical History & Family History Past Medical History?: Yes - Past Social History Smoking Status: Never Smoked Chewing Tobacco Use: No Cigar Use: No Alcohol: None Drugs: Denies Home Situation {Lives}: With Family - CARDIAC Hx Hypertension: Yes - PULMONARY Hx Respiratory Disorders: No - NEUROLOGICAL Hx Neurological Disorder: Yes Hx Dizziness: Yes (NO MEDICATIONS FOR DIZZINESS) Other/Comment: GENERALIZED TREMORS NO DX - HEENT Hx HEENT Problems: Yes (DECREASED IN HEARING-NO HEARING AIDS) Hx Cataracts: Yes (BILAT. NO SURGERY) - RENAL Hx Chronic Kidney Disease: No - ENDOCRINE/METABOLIC Hx Endocrine Disorders: No - MUSCULOSKELETAL/RHEUMATOLOGICAL Hx Arthritis: Yes - GASTROINTESTINAL Hx Gastrointestinal Disorders: No - GENITOURINARY/GYNECOLOGICAL Hx Genitourinary Disorders: No - PSYCHIATRIC Hx Substance Use: No - SURGICAL HISTORY Hx Surgeries: Yes Hx Angioplasty: Yes (X 8- 10 YEARS AGO) Hx Cardiac Catheterization: Yes Hx Orthopedic Surgery: Yes (right shoulder) Other/Comment: Rt. Knee Arthroplasty,Total Knee Replacement.03/20/18 - ANESTHESIA Hx Anesthesia: Yes Hx Anesthesia Reactions: No Hx Malignant Hyperthermia: No Meds Allergies/Adverse Reactions: Allergies Allergy/AdvReac Type Severity Reaction Status Date / Time No Known Allergies Allergy Verified 03/23/18 18:43 - Medications Medications: Current Medications Albuterol/Ipratropium (Duoneb 3 Mg/0.5 Mg (3 Ml) Ud) 3 ml INH RQ6 [facility] Last Admin: 03/27/18 13:41 Dose: 3 ml Amlodipine Besylate (Norvasc) 5 mg PO DAILY [facility] Last Admin: 03/27/18 09:10 Dose: 5 mg Aspirin (Ecotrin) 81 mg PO DAILY [facility] Last Admin: 03/27/18 08:32 Dose: 81 mg Atorvastatin Calcium (Lipitor) 20 mg PO DAILY@2100 [facility] Last Admin: 03/26/18 21:31 Dose: 20 mg Calcium Carbonate (Oscal) 500 mg PO DAILY [facility] Last Admin: 03/27/18 09:19 Dose: Not Given Docusate Sodium (Colace) 100 mg PO TID [facility] Last Admin: 03/27/18 12:20 Dose: Not Given Donepezil HCl (Aricept) 5 mg PO DAILY [facility] Last Admin: 03/27/18 08:30 Dose: 5 mg Enoxaparin Sodium (Lovenox) 40 mg SC DAILY [facility] PRN Reason: Protocol Last Admin: 03/27/18 08:33 Dose: 40 mg Ergocalciferol (Drisdol 50,000 Intl Units Cap) 1 cap PO Q7D [facility] Last Admin: 03/23/18 22:55 Dose: 1 cap Potassium Chloride/Dextrose/Sod Cl (Potassium Chl 20 Meq In D5-1/2ns) 1,000 mls @ 125 mls/hr IV .Q8H [facility] Stop: 03/28/18 12:39 Last Admin: 03/27/18 13:59 Dose: 125 mls/hr Ketorolac Tromethamine (Toradol) 30 mg IVP Q6 PRN PRN Reason: Pain, severe (8-10) Ketorolac Tromethamine (Toradol) 15 mg IVP Q6 PRN PRN Reason: Pain, moderate (4-7) Last Admin: 03/27/18 13:57 Dose: 15 mg Losartan Potassium (Cozaar) 100 mg PO DAILY [facility] Last Admin: 03/27/18 08:31 Dose: 100 mg Metoprolol Tartrate (Lopressor) 50 mg PO BID [facility] Last Admin: 03/27/18 08:33 Dose: 50 mg Oxycodone/Acetaminophen (Percocet 5/325 Mg Tab) 1 tab PO Q4 PRN PRN Reason: Pain, moderate (4-7) Stop: 03/30/18 05:46 Oxycodone/Acetaminophen (Percocet 5/325 Mg Tab) 2 tab PO Q4 PRN PRN Reason: Pain, severe (8-10) Stop: 03/30/18 05:47 Pantoprazole Sodium (Protonix Inj) 40 mg IVP DAILY [facility] Last Admin: 03/27/18 10:41 Dose: 40 mg Pregabalin (Lyrica) 50 mg PO BID [facility] Last Admin: 03/27/18 09:18 Dose: Not Given Primidone (Mysoline) 50 mg PO BID [facility] Last Admin: 03/27/18 09:10 Dose: 50 mg Sennosides (Senokot Tab) 17.2 mg PO [facility] Last Admin: 03/26/18 21:32 Dose: 17.2 mg Tiotropium [place] (Spiriva) 18 mcg INH Q24H [facility] Last Admin: 03/26/18 21:32 Dose: 18 mcg Trazodone HCl (Desyrel) 100 mg PO [facility] Last Admin: 03/26/18 21:31 Dose: 100 mg Physical Exam - Constitutional Appears: Non-toxic, No Acute Distress - Eye Exam Eye Exam: EOMI, PERRL - ENT Exam ENT Exam: Mucous Membranes Moist - Respiratory Exam Respiratory Exam: Clear to Auscultation Bilateral. absent: Rales, Rhonchi, Wheezes - Cardiovascular Exam Cardiovascular Exam: RRR, +S1, +S2 - GI/Abdominal Exam GI & Abdominal Exam: Distended (tympanic), Normal Bowel Sounds, Soft. absent: Firm, Guarding, Hernia, Organomegaly, Rigid, Tenderness - Extremities Exam Extremities exam: Positive for: normal inspection Additional comments: right knee bandaged from recent surgical intervention - Neurological Exam Neurological exam: Alert, Oriented x3 - Psychiatric Exam Psychiatric exam: Normal Affect, Normal Mood - Skin Skin Exam: Dry, Warm Results - Vital Signs Recent Vital Signs: Last Vital Signs Temp 98.1 F 03/27/18 08:15 Pulse 97 H 03/27/18 09:10 Resp 20 03/27/18 08:15 BP 161/86 H 03/27/18 09:10 Pulse Ox 90 L 03/27/18 08:15 - Labs Result Diagrams: 03/27/18 05:30 03/27/18 05:30 Labs: Laboratory Results - last 24 hr 03/24/18 03/27/18 03/27/18 07:11 05:30 05:30 WBC 10.2 RBC 3.64 L Hgb 11.9 L Hct 34.9 L MCV 95.9 H MCH 32.7 H MCHC 34.2 RDW 14.1 Plt Count 239 Sodium 134 Potassium 4.2 Chloride 93 L Carbon Dioxide 27 Anion Gap 18 BUN 20 Creatinine 1.1 Est GFR ( Amer) > 60 Est GFR (Non-Af Amer) > 60 POC Glucose (mg/dL) 116 H Random Glucose 164 H Calcium 8.8 Phosphorus 3.4 Magnesium 2.4 H Assessment & Plan - Assessment and Plan (Free Text) Assessment: Patient is a 77yo male with PMHx significant for CAD, HTN, OA who is currently in TCU following right total knee replacement. -Constipation -S/P total right knee replacement Plan: -Patient is passing flatus/stool -No evidence of obstruction on plain film -Miralax 17g PO BID -Liquid diet, advance as tolerated -Serial abdominal examinations - Date & Time Date: 03/27/18 Time: 14:22
[2018-03-27] MEDS ORDERED: Bisacodyl 5mg EC Tab PO ONE (14:24)
[2018-03-27] MEDS: POLYETHYLENE GLYCOL 3350 17 GM/Dose PACKET PO SCH ×2 (15:49→20:37)
[2018-03-27] MEDS: Tiotropium 18 mcg Cap For Inhalation INH SCH (21:06)
[2018-03-28] MEDS: Albuterol-Ipratrop 3 mg / 0.5 (3 ml) UD INH SCH ×4 (01:35→19:34)
[2018-03-28] MEDS: Potassium Ch 20mEq in D5-1/2NS 1,000 ML IV SCH (05:56)
[2018-03-28 06:56] LABS: HEMOGLOBIN 10.9 g/dL (12.0-18.0); MEAN CELL VOLUME 95.2 fl (80.0-94.0); MEAN CORPUSCULAR HEMOGLOBIN 32.1 pg (27.0-31.0); MEAN CORPUSCULAR HGB CONC 33.8 g/dL (33.0-37.0); RBC 3.39 Mil/uL (4.40-5.90); WHITE BLOOD COUNT 9.6 K/uL (4.8-10.8)
[2018-03-28 07:02] LABS: BLOOD UREA NITROGEN 18 mg/dl (9-20); CALCIUM 8.3 mg/dL (8.4-10.2); GFR AFRICAN-AMERICAN > 60; GFR NON-AFRICAN AMERICAN > 60
[2018-03-28] MEDS: POLYETHYLENE GLYCOL 3350 17 GM/Dose PACKET PO SCH ×2 (08:43→17:58)
[2018-03-28] MEDS: Enoxaparin 40 mg Syringe SC SCH (08:44)
--- NOTE | 2018-03-28 11:27 | CP.PCM.PN ---
<Leonid Moon - Last Filed: 03/28/18 13:20> Subjective - Date & Time of Evaluation Date of Evaluation: 03/28/18 Time of Evaluation: 10:45 - Subjective Subjective: PGY5 GI Fellow Progress Note Patient seen and examined bedside this morning. The patient complains of diffuse abdominal distention and discomfort today. He has not been able to move around very much in the last two days due to discomfort. Is passing flatus and had 2-3 soft bowel movements in the last 24H. With small amounts of liquid diet , he is feeling full and having excessive eructation. No nausea, vomiting. 12 system ROS performed and negative except where stated. Objective - Vital Signs/Intake and Output Vital Signs (last 24 hours): Temp Pulse Resp BP Pulse Ox 98.2 F 70 18 141/75 95 03/28/18 08:12 03/28/18 08:49 03/28/18 08:12 03/28/18 08:49 03/28/18 08:12 - Medications Medications: Current Medications Albuterol/Ipratropium (Duoneb 3 Mg/0.5 Mg (3 Ml) Ud) 3 ml INH RQ6 [facility] Last Admin: 03/28/18 07:34 Dose: 3 ml Amlodipine Besylate (Norvasc) 5 mg PO DAILY [facility] Last Admin: 03/28/18 08:49 Dose: 5 mg Aspirin (Ecotrin) 81 mg PO DAILY [facility] Last Admin: 03/28/18 08:45 Dose: 81 mg Atorvastatin Calcium (Lipitor) 20 mg PO DAILY@2100 [facility] Last Admin: 03/27/18 21:06 Dose: 20 mg Bisacodyl (Dulcolax) 10 mg ID DAILY [facility] Calcium Carbonate (Oscal) 500 mg PO DAILY [facility] Last Admin: 03/28/18 08:46 Dose: 500 mg Docusate Sodium (Colace) 100 mg PO TID [facility] Last Admin: 03/28/18 08:46 Dose: 100 mg Donepezil HCl (Aricept) 5 mg PO DAILY [facility] Last Admin: 03/28/18 08:46 Dose: 5 mg Enoxaparin Sodium (Lovenox) 40 mg SC DAILY [facility] PRN Reason: Protocol Last Admin: 03/28/18 08:44 Dose: 40 mg Ergocalciferol (Drisdol 50,000 Intl Units Cap) 1 cap PO Q7D [facility] Last Admin: 03/23/18 22:55 Dose: 1 cap Potassium Chloride/Dextrose/Sod Cl (Potassium Chl 20 Meq In D5-1/2ns) 1,000 mls @ 125 mls/hr IV .Q8H [facility] Stop: 03/28/18 12:39 Last Admin: 03/28/18 05:56 Dose: 125 mls/hr Ketorolac Tromethamine (Toradol) 30 mg IVP Q6 PRN PRN Reason: Pain, severe (8-10) Last Admin: 03/27/18 21:07 Dose: 30 mg Ketorolac Tromethamine (Toradol) 15 mg IVP Q6 PRN PRN Reason: Pain, moderate (4-7) Last Admin: 03/27/18 13:57 Dose: 15 mg Losartan Potassium (Cozaar) 100 mg PO DAILY [facility] Last Admin: 03/28/18 08:45 Dose: 100 mg Metoprolol Tartrate (Lopressor) 50 mg PO BID [facility] Last Admin: 03/28/18 08:44 Dose: 50 mg Oxycodone/Acetaminophen (Percocet 5/325 Mg Tab) 1 tab PO Q4 PRN PRN Reason: Pain, moderate (4-7) Stop: 03/30/18 05:46 Oxycodone/Acetaminophen (Percocet 5/325 Mg Tab) 2 tab PO Q4 PRN PRN Reason: Pain, severe (8-10) Stop: 03/30/18 05:47 Pantoprazole Sodium (Protonix Inj) 40 mg IVP DAILY [facility] Last Admin: 03/28/18 08:43 Dose: 40 mg Polyethylene Glycol (Miralax) 17 gm PO BID [facility] Last Admin: 03/28/18 08:43 Dose: 17 gm Pregabalin (Lyrica) 50 mg PO BID [facility] Last Admin: 03/28/18 08:48 Dose: Not Given Primidone (Mysoline) 50 mg PO BID [facility] Last Admin: 03/28/18 08:48 Dose: 50 mg Tiotropium [place] (Spiriva) 18 mcg INH Q24H [facility] Last Admin: 03/27/18 21:06 Dose: 18 mcg Trazodone HCl (Desyrel) 100 mg PO HS [facility] Last Admin: 03/27/18 21:06 Dose: 100 mg - Labs Labs: 03/28/18 05:50 03/28/18 05:50 PT 11.6 Seconds (9.8-13.1) 03/24/18 06:30 INR 1.0 (0.9-1.2) 03/24/18 06:30 APTT 26.2 Seconds (25.6-37.1) 03/24/18 06:30 - Constitutional Appears: Non-toxic, No Acute Distress - Eye Exam Eye Exam: EOMI, PERRL - ENT Exam ENT Exam: Mucous Membranes Moist - Respiratory Exam Respiratory Exam: Clear to Ausculation Bilateral. absent: Rales, Rhonchi, Wheezes - Cardiovascular Exam Cardiovascular Exam: RRR, +S1, +S2 - GI/Abdominal Exam GI & Abdominal Exam: Distended, Firm, Tenderness (diffusely), Hypoactive Bowel Sounds. absent: Guarding, Rigid, Hernia, Organomegaly - Extremities Exam Extremities Exam: absent: Pedal Edema Additional comments: R knee in bandage/support from recent surgery - Neurological Exam Neurological Exam: Alert, Awake, Oriented x3 - Psychiatric Exam Psychiatric exam: Normal Affect, Normal Mood - Skin Skin Exam: Dry, Warm Assessment and Plan - Assessment and Plan (Free Text) Assessment: Patient is a 77yo male with PMHx significant for CAD, HTN, OA who is currently in TCU following right total knee replacement. -Post-operative ileus/constipation - resolving, passing flatus/stool -S/P total right knee replacement Plan: -Continues to pass flatus/stool -Abdomen remains distended, bowel sounds more hypoactive today -D/C senna - can cause abdominal cramping/pain -Start Dulcolax 10mg supp ID QD -Continue Miralax 17g PO BID -NPO for now except medications -If symptoms worsen/persist - consider advanced cross sectional imaging with CT +PO/IV contrast -Recommend general surgery consultation -If patient becomes nauseated/vomits - consider NGT decompression -Ambulation/rehabilitation as tolerated by patient and as indicated following knee replacement Case discussed with Dr Power <Gary Power - Last Filed: 03/29/18 13:25> Objective - Vital Signs/Intake and Output Vital Signs (last 24 hours): Temp Pulse Resp BP Pulse Ox 97.9 F 98 H 18 124/74 99 03/29/18 07:45 03/29/18 09:29 03/29/18 07:45 03/29/18 09:29 03/29/18 07:45 - Medications Medications: Current Medications Albuterol/Ipratropium (Duoneb 3 Mg/0.5 Mg (3 Ml) Ud) 3 ml INH RQ6 [facility] Last Admin: 03/29/18 13:15 Dose: 3 ml Amlodipine Besylate (Norvasc) 5 mg PO DAILY [facility] Last Admin: 03/29/18 09:28 Dose: Not Given Aspirin (Ecotrin) 81 mg PO DAILY [facility] Last Admin: 03/29/18 09:16 Dose: Not Given Atorvastatin Calcium (Lipitor) 20 mg PO DAILY@2100 [facility] Last Admin: 03/28/18 21:09 Dose: 20 mg Bisacodyl (Dulcolax) 10 mg ID DAILY [facility] Last Admin: 03/29/18 09:27 Dose: 10 mg Calcium Carbonate (Oscal) 500 mg PO DAILY [facility] Last Admin: 03/29/18 09:28 Dose: Not Given Docusate Sodium (Colace) 100 mg PO TID [facility] Last Admin: 03/29/18 12:26 Dose: 100 mg Donepezil HCl (Aricept) 5 mg PO DAILY [facility] Last Admin: 03/29/18 09:31 Dose: Not Given Enoxaparin Sodium (Lovenox) 40 mg SC DAILY [facility] PRN Reason: Protocol Last Admin: 03/29/18 09:26 Dose: 40 mg Ergocalciferol (Drisdol 50,000 Intl Units Cap) 1 cap PO Q7D [facility] Last Admin: 03/23/18 22:55 Dose: 1 cap Sodium Chloride (Sodium Chloride 0.9%) 1,000 mls @ 100 mls/hr IV .Q10H [facility] Stop: 03/29/18 19:08 Last Admin: 03/29/18 05:43 Dose: 100 mls/hr Ketorolac Tromethamine (Toradol) 30 mg IVP Q6 PRN PRN Reason: Pain, severe (8-10) Last Admin: 03/27/18 21:07 Dose: 30 mg Ketorolac Tromethamine (Toradol) 15 mg IVP Q6 PRN PRN Reason: Pain, moderate (4-7) Last Admin: 03/27/18 13:57 Dose: 15 mg Losartan Potassium (Cozaar) 100 mg PO DAILY [facility] Last Admin: 03/29/18 09:29 Dose: 100 mg Metoclopramide HCl (Reglan) 10 mg IVP Q6 PRN PRN Reason: Nausea/Vomiting Last Admin: 03/29/18 06:06 Dose: 10 mg Metoprolol Tartrate (Lopressor) 50 mg PO BID [facility] Last Admin: 03/29/18 09:16 Dose: Not Given Oxycodone/Acetaminophen (Percocet 5/325 Mg Tab) 1 tab PO Q4 PRN PRN Reason: Pain, moderate (4-7) Stop: 03/30/18 05:46 Oxycodone/Acetaminophen (Percocet 5/325 Mg Tab) 2 tab PO Q4 PRN PRN Reason: Pain, severe (8-10) Stop: 03/30/18 05:47 Pantoprazole Sodium (Protonix Inj) 40 mg IVP DAILY [facility] Last Admin: 03/29/18 09:26 Dose: 40 mg Polyethylene Glycol (Miralax) 17 gm PO BID [facility] Last Admin: 03/29/18 09:27 Dose: 17 gm Pregabalin (Lyrica) 50 mg PO BID [facility] Last Admin: 03/29/18 09:16 Dose: Not Given Primidone (Mysoline) 50 mg PO BID [facility] Last Admin: 03/29/18 09:27 Dose: 50 mg Tiotropium [place] (Spiriva) 18 mcg INH Q24H [facility] Last Admin: 03/28/18 21:10 Dose: 18 mcg Trazodone HCl (Desyrel) 100 mg PO HS [facility] Last Admin: 03/28/18 21:10 Dose: 100 mg - Labs Labs: 03/28/18 05:50 03/28/18 05:50 PT 11.6 Seconds (9.8-13.1) 03/24/18 06:30 INR 1.0 (0.9-1.2) 03/24/18 06:30 APTT 26.2 Seconds (25.6-37.1) 03/24/18 06:30 Attending/Attestation - Attestation I have personally seen and examined this patient.: Yes I have fully participated in the care of the patient.: Yes I have reviewed all pertinent clinical information, including history, physical exam and plan: Yes Notes (Text): 03/29/18 13:23 This is a 77 yr old male with PMHx significant for CAD, HTN, OA who is currently in TCU following right total knee replacement with post-operative ileus/constipation - resolving, passing flatus/stool On PE abdomen is still distended but less tense and no guarding. He has not been receiving any oral medications. Reiterated that patient should be npo except meds. Only If symptoms worsen/persist - consider advanced cross sectional imaging with CT +PO/IV contrast.
--- NOTE | 2018-03-28 18:41 | CP.PCM.CON ---
History of Present Illness - History of Present Illness History of Present Illness: General Surgery Consult Re: Post op ileus HPI: 77yo male currently in TCU S/P R total knee replacement. Over the last 5 days pt noted worsening abdominal distention and pain but continued to have small BMs and flatus. He says yesterday his distention was worse, but after getting a bowel regiment, he began having large amounts of loose, watery stool. An obstructive series yesterday showed a possible ileus. Currently he is feeling better with decreased distention and continues to have flatus and loose BMs. PMH: CAD, HTN, OA PSH: PCI, Right shoulder Fracture repair, right knee total replacement SH: No tobacco, EtOH, or drug use Meds: See MAR All: NKDA Review of Systems - Review of Systems All systems: reviewed and no additional remarkable complaints except Past Patient History - Past Medical History & Family History Past Medical History?: Yes - Past Social History Smoking Status: Never Smoked Chewing Tobacco Use: No Cigar Use: No Alcohol: None Drugs: Denies Home Situation {Lives}: With Family - CARDIAC Hx Hypertension: Yes - PULMONARY Hx Respiratory Disorders: No - NEUROLOGICAL Hx Neurological Disorder: Yes Hx Dizziness: Yes (NO MEDICATIONS FOR DIZZINESS) Other/Comment: GENERALIZED TREMORS NO DX - HEENT Hx HEENT Problems: Yes (DECREASED IN HEARING-NO HEARING AIDS) Hx Cataracts: Yes (BILAT. NO SURGERY) - RENAL Hx Chronic Kidney Disease: No - ENDOCRINE/METABOLIC Hx Endocrine Disorders: No - MUSCULOSKELETAL/RHEUMATOLOGICAL Hx Arthritis: Yes - GASTROINTESTINAL Hx Gastrointestinal Disorders: No - GENITOURINARY/GYNECOLOGICAL Hx Genitourinary Disorders: No - PSYCHIATRIC Hx Substance Use: No - SURGICAL HISTORY Hx Surgeries: Yes Hx Angioplasty: Yes (X 8- 10 YEARS AGO) Hx Cardiac Catheterization: Yes Hx Orthopedic Surgery: Yes (right shoulder) Other/Comment: Rt. Knee Arthroplasty,Total Knee Replacement.03/20/18 - ANESTHESIA Hx Anesthesia: Yes Hx Anesthesia Reactions: No Hx Malignant Hyperthermia: No Meds Allergies/Adverse Reactions: Allergies Allergy/AdvReac Type Severity Reaction Status Date / Time No Known Allergies Allergy Verified 03/23/18 18:43 - Medications Medications: Current Medications Albuterol/Ipratropium (Duoneb 3 Mg/0.5 Mg (3 Ml) Ud) 3 ml INH RQ6 [facility] Last Admin: 03/28/18 13:37 Dose: 3 ml Amlodipine Besylate (Norvasc) 5 mg PO DAILY [facility] Last Admin: 03/28/18 08:49 Dose: 5 mg Aspirin (Ecotrin) 81 mg PO DAILY [facility] Last Admin: 03/28/18 08:45 Dose: 81 mg Atorvastatin Calcium (Lipitor) 20 mg PO DAILY@2100 [facility] Last Admin: 03/27/18 21:06 Dose: 20 mg Bisacodyl (Dulcolax) 10 mg [place] DAILY [facility] Last Admin: 03/28/18 12:19 Dose: 10 mg Calcium Carbonate (Oscal) 500 mg PO DAILY [facility] Last Admin: 03/28/18 08:46 Dose: 500 mg Docusate Sodium (Colace) 100 mg PO TID [facility] Last Admin: 03/28/18 17:58 Dose: 100 mg Donepezil HCl (Aricept) 5 mg PO DAILY [facility] Last Admin: 03/28/18 08:46 Dose: 5 mg Enoxaparin Sodium (Lovenox) 40 mg SC DAILY [facility] PRN Reason: Protocol Last Admin: 03/28/18 08:44 Dose: 40 mg Ergocalciferol (Drisdol 50,000 Intl Units Cap) 1 cap PO Q7D [facility] Last Admin: 03/23/18 22:55 Dose: 1 cap Ketorolac Tromethamine (Toradol) 30 mg IVP Q6 PRN PRN Reason: Pain, severe (8-10) Last Admin: 03/27/18 21:07 Dose: 30 mg Ketorolac Tromethamine (Toradol) 15 mg IVP Q6 PRN PRN Reason: Pain, moderate (4-7) Last Admin: 03/27/18 13:57 Dose: 15 mg Losartan Potassium (Cozaar) 100 mg PO DAILY [facility] Last Admin: 03/28/18 08:45 Dose: 100 mg Metoprolol Tartrate (Lopressor) 50 mg PO BID [facility] Last Admin: 03/28/18 18:02 Dose: 50 mg Oxycodone/Acetaminophen (Percocet 5/325 Mg Tab) 1 tab PO Q4 PRN PRN Reason: Pain, moderate (4-7) Stop: 03/30/18 05:46 Oxycodone/Acetaminophen (Percocet 5/325 Mg Tab) 2 tab PO Q4 PRN PRN Reason: Pain, severe (8-10) Stop: 03/30/18 05:47 Pantoprazole Sodium (Protonix Inj) 40 mg IVP DAILY [facility] Last Admin: 03/28/18 08:43 Dose: 40 mg Polyethylene Glycol (Miralax) 17 gm PO BID [facility] Last Admin: 03/28/18 17:58 Dose: 17 gm Pregabalin (Lyrica) 50 mg PO BID [facility] Last Admin: 03/28/18 17:59 Dose: Not Given Primidone (Mysoline) 50 mg PO BID [facility] Last Admin: 03/28/18 17:58 Dose: 50 mg Tiotropium [place] (Spiriva) 18 mcg INH Q24H [facility] Last Admin: 03/27/18 21:06 Dose: 18 mcg Trazodone HCl (Desyrel) 100 mg PO HS [facility] Last Admin: 03/27/18 21:06 Dose: 100 mg Physical Exam - Constitutional Appears: Non-toxic, No Acute Distress - Head Exam Head Exam: ATRAUMATIC, NORMOCEPHALIC - Eye Exam Eye Exam: EOMI. absent: Scleral icterus - ENT Exam ENT Exam: Mucous Membranes Moist Additional comments: trachea midline - Neck Exam Neck exam: Positive for: Full Rom - Respiratory Exam Respiratory Exam: NORMAL BREATHING PATTERN. absent: Respiratory Distress - GI/Abdominal Exam GI & Abdominal Exam: Distended (typanic), Soft, Tenderness (generalized). absent: Firm, Guarding, Rebound, Rigid - Extremities Exam Extremities exam: Positive for: normal capillary refill, pedal pulses present Additional comments: RLE with TKR dressing in place, C/D/I - Back Exam Back exam: absent: CVA tenderness (L), CVA tenderness (R) - Neurological Exam Neurological exam: Alert, Oriented x3 - Skin Skin Exam: Dry, Warm Results - Vital Signs Recent Vital Signs: Last Vital Signs Temp 98.2 F 03/28/18 15:45 Pulse 88 03/28/18 18:02 Resp 20 03/28/18 15:45 BP 130/78 03/28/18 18:02 Pulse Ox 94 L 03/28/18 15:45 - Labs Result Diagrams: 03/28/18 05:50 03/28/18 05:50 Labs: Laboratory Results - last 24 hr 03/28/18 03/28/18 05:50 05:50 WBC 9.6 RBC 3.39 L Hgb 10.9 L Hct 32.3 L MCV 95.2 H MCH 32.1 H MCHC 33.8 RDW 14.0 Plt Count 268 Sodium 130 L Potassium 4.0 Chloride 96 L Carbon Dioxide 23 Anion Gap 15 BUN 18 Creatinine 1.0 Est GFR ( Amer) > 60 Est GFR (Non-Af Amer) > 60 Random Glucose 140 H Calcium 8.3 L Phosphorus 2.8 Magnesium 2.3 - Imaging and Cardiology Abdominal x-ray Status: Image reviewed by me, Report reviewed by me Assessment & Plan - Assessment and Plan (Free Text) Assessment: 77M with post-op ileus likely 2/2 narcotic pain meds Plan: NPO IVF Serial abd exams Correct electrolyte imbalances PRN Continue GI team bowel regiment Ambulate as able, continue PT and strengthening exercises Recommend C.Diff testing if clinical picture worsens Discussed with Dr. Junior Hilliard PGY4
[2018-03-28] MEDS: Sodium Chloride 0.9% 1,000 ML IV SCH (19:51)
--- NOTE | 2018-03-28 20:24 | CP.PCM.PN ---
Subjective - Date & Time of Evaluation Date of Evaluation: 03/28/18 Time of Evaluation: 11:35 - Subjective Subjective: no acute knee pain Objective - Vital Signs/Intake and Output Vital Signs (last 24 hours): Temp Pulse Resp BP Pulse Ox 98.2 F 88 20 130/78 94 L 03/28/18 15:45 03/28/18 18:02 03/28/18 15:45 03/28/18 18:02 03/28/18 15:45 - Medications Medications: Current Medications Albuterol/Ipratropium (Duoneb 3 Mg/0.5 Mg (3 Ml) Ud) 3 ml INH RQ6 [facility] Last Admin: 03/28/18 19:34 Dose: 3 ml Amlodipine Besylate (Norvasc) 5 mg PO DAILY [facility] Last Admin: 03/28/18 08:49 Dose: 5 mg Aspirin (Ecotrin) 81 mg PO DAILY [facility] Last Admin: 03/28/18 08:45 Dose: 81 mg Atorvastatin Calcium (Lipitor) 20 mg PO DAILY@2100 [facility] Last Admin: 03/27/18 21:06 Dose: 20 mg Bisacodyl (Dulcolax) 10 mg [place] DAILY [facility] Last Admin: 03/28/18 12:19 Dose: 10 mg Calcium Carbonate (Oscal) 500 mg PO DAILY [facility] Last Admin: 03/28/18 08:46 Dose: 500 mg Docusate Sodium (Colace) 100 mg PO TID [facility] Last Admin: 03/28/18 17:58 Dose: 100 mg Donepezil HCl (Aricept) 5 mg PO DAILY [facility] Last Admin: 03/28/18 08:46 Dose: 5 mg Enoxaparin Sodium (Lovenox) 40 mg SC DAILY [facility] PRN Reason: Protocol Last Admin: 03/28/18 08:44 Dose: 40 mg Ergocalciferol (Drisdol 50,000 Intl Units Cap) 1 cap PO Q7D [facility] Last Admin: 03/23/18 22:55 Dose: 1 cap Sodium Chloride (Sodium Chloride 0.9%) 1,000 mls @ 100 mls/hr IV .Q10H [facility] Stop: 03/29/18 19:08 Last Admin: 03/28/18 19:51 Dose: 100 mls/hr Ketorolac Tromethamine (Toradol) 30 mg IVP Q6 PRN PRN Reason: Pain, severe (8-10) Last Admin: 03/27/18 21:07 Dose: 30 mg Ketorolac Tromethamine (Toradol) 15 mg IVP Q6 PRN PRN Reason: Pain, moderate (4-7) Last Admin: 03/27/18 13:57 Dose: 15 mg Losartan Potassium (Cozaar) 100 mg PO DAILY [facility] Last Admin: 03/28/18 08:45 Dose: 100 mg Metoprolol Tartrate (Lopressor) 50 mg PO BID [facility] Last Admin: 03/28/18 18:02 Dose: 50 mg Oxycodone/Acetaminophen (Percocet 5/325 Mg Tab) 1 tab PO Q4 PRN PRN Reason: Pain, moderate (4-7) Stop: 03/30/18 05:46 Oxycodone/Acetaminophen (Percocet 5/325 Mg Tab) 2 tab PO Q4 PRN PRN Reason: Pain, severe (8-10) Stop: 03/30/18 05:47 Pantoprazole Sodium (Protonix Inj) 40 mg IVP DAILY [facility] Last Admin: 03/28/18 08:43 Dose: 40 mg Polyethylene Glycol (Miralax) 17 gm PO BID [facility] Last Admin: 03/28/18 17:58 Dose: 17 gm Pregabalin (Lyrica) 50 mg PO BID [facility] Last Admin: 03/28/18 17:59 Dose: Not Given Primidone (Mysoline) 50 mg PO BID [facility] Last Admin: 03/28/18 17:58 Dose: 50 mg Tiotropium [place] (Spiriva) 18 mcg INH Q24H [facility] Last Admin: 03/27/18 21:06 Dose: 18 mcg Trazodone HCl (Desyrel) 100 mg PO HS [facility] Last Admin: 03/27/18 21:06 Dose: 100 mg - Labs Labs: 03/28/18 05:50 03/28/18 05:50 PT 11.6 Seconds (9.8-13.1) 03/24/18 06:30 INR 1.0 (0.9-1.2) 03/24/18 06:30 APTT 26.2 Seconds (25.6-37.1) 03/24/18 06:30 - Head Exam Head Exam: ATRAUMATIC, NORMAL INSPECTION, NORMOCEPHALIC - Eye Exam Eye Exam: EOMI, Normal appearance Pupil Exam: NORMAL ACCOMODATION, PERRL - ENT Exam ENT Exam: Mucous Membranes Moist, Normal Exam - Neck Exam Neck Exam: Full ROM, Normal Inspection - Respiratory Exam Respiratory Exam: Clear to Ausculation Bilateral, NORMAL BREATHING PATTERN - Cardiovascular Exam Cardiovascular Exam: REGULAR RHYTHM - GI/Abdominal Exam GI & Abdominal Exam: Soft, Normal Bowel Sounds - Rectal Exam Rectal Exam: NORMAL INSPECTION - Exam External exam: NORMAL EXTERNAL EXAM - Extremities Exam Extremities Exam: Full ROM, Normal Inspection - Back Exam Back Exam: NORMAL INSPECTION - Neurological Exam Neurological Exam: Alert, Awake Neuro motor strength exam: Right Upper Extremity: 3 - Psychiatric Exam Psychiatric exam: Normal Affect, Normal Mood - Skin Skin Exam: Dry, Normal Color Assessment and Plan (1) Acute blood loss anemia Status: Acute (2) Primary osteoarthritis of right knee Assessment & Plan: plan for physical, occupational therapy , for Dc planning and equipment evaluation Status: Acute (3) Screen for colon cancer Status: Acute (4) HTN (hypertension) Status: Chronic (5) Internal hemorrhoid Status: Chronic (6) Vitamin D deficiency Status: Chronic
[2018-03-28] MEDS: Tiotropium 18 mcg Cap For Inhalation INH SCH (21:10)
[2018-03-29] MEDS: Albuterol-Ipratrop 3 mg / 0.5 (3 ml) UD INH SCH ×4 (01:00→19:41)
[2018-03-29] MEDS: Sodium Chloride 0.9% 1,000 ML IV SCH ×2 (05:43→17:40)
--- NOTE | 2018-03-29 08:07 | CP.PCM.PN ---
Subjective - Date & Time of Evaluation Date of Evaluation: 03/29/18 Time of Evaluation: 07:15 - Subjective Subjective: Patient seen and examined this morning. No acute events over night. Patient having bowel movements and reports passing flatus. Objective - Vital Signs/Intake and Output Vital Signs (last 24 hours): Temp Pulse Resp BP Pulse Ox 98.1 F 99 H 20 116/71 96 03/28/18 20:59 03/28/18 20:59 03/28/18 20:59 03/28/18 20:59 03/28/18 20:59 - Medications Medications: Current Medications Albuterol/Ipratropium (Duoneb 3 Mg/0.5 Mg (3 Ml) Ud) 3 ml INH RQ6 [facility] Last Admin: 03/29/18 07:23 Dose: 3 ml Amlodipine Besylate (Norvasc) 5 mg PO DAILY [facility] Last Admin: 03/28/18 08:49 Dose: 5 mg Aspirin (Ecotrin) 81 mg PO DAILY [facility] Last Admin: 03/28/18 08:45 Dose: 81 mg Atorvastatin Calcium (Lipitor) 20 mg PO DAILY@2100 [facility] Last Admin: 03/28/18 21:09 Dose: 20 mg Bisacodyl (Dulcolax) [address] DAILY [facility] Last Admin: 03/28/18 12:19 Dose: 10 mg Calcium Carbonate (Oscal) 500 mg PO DAILY [facility] Last Admin: 03/28/18 08:46 Dose: 500 mg Docusate Sodium (Colace) 100 mg PO TID [facility] Last Admin: 03/28/18 17:58 Dose: 100 mg Donepezil HCl (Aricept) 5 mg PO DAILY [facility] Last Admin: 03/28/18 08:46 Dose: 5 mg Enoxaparin Sodium (Lovenox) 40 mg SC DAILY [facility] PRN Reason: Protocol Last Admin: 03/28/18 08:44 Dose: 40 mg Ergocalciferol (Drisdol 50,000 Intl Units Cap) 1 cap PO Q7D [facility] Last Admin: 03/23/18 22:55 Dose: 1 cap Sodium Chloride (Sodium Chloride 0.9%) 1,000 mls @ 100 mls/hr IV .Q10H [facility] Stop: 03/29/18 19:08 Last Admin: 03/29/18 05:43 Dose: 100 mls/hr Ketorolac Tromethamine (Toradol) 30 mg IVP Q6 PRN PRN Reason: Pain, severe (8-10) Last Admin: 03/27/18 21:07 Dose: 30 mg Ketorolac Tromethamine (Toradol) 15 mg IVP Q6 PRN PRN Reason: Pain, moderate (4-7) Last Admin: 03/27/18 13:57 Dose: 15 mg Losartan Potassium (Cozaar) 100 mg PO DAILY [facility] Last Admin: 03/28/18 08:45 Dose: 100 mg Metoclopramide HCl (Reglan) 10 mg IVP Q6 PRN PRN Reason: Nausea/Vomiting Last Admin: 03/29/18 06:06 Dose: 10 mg Metoprolol Tartrate (Lopressor) 50 mg PO BID [facility] Last Admin: 03/28/18 18:02 Dose: 50 mg Oxycodone/Acetaminophen (Percocet 5/325 Mg Tab) 1 tab PO Q4 PRN PRN Reason: Pain, moderate (4-7) Stop: 03/30/18 05:46 Oxycodone/Acetaminophen (Percocet 5/325 Mg Tab) 2 tab PO Q4 PRN PRN Reason: Pain, severe (8-10) Stop: 03/30/18 05:47 Pantoprazole Sodium (Protonix Inj) 40 mg IVP DAILY [facility] Last Admin: 03/28/18 08:43 Dose: 40 mg Polyethylene Glycol (Miralax) 17 gm PO BID [facility] Last Admin: 03/28/18 17:58 Dose: 17 gm Pregabalin (Lyrica) 50 mg PO BID [facility] Last Admin: 03/28/18 17:59 Dose: Not Given Primidone (Mysoline) 50 mg PO BID [facility] Last Admin: 03/28/18 17:58 Dose: 50 mg Tiotropium [place] (Spiriva) 18 mcg INH Q24H [facility] Last Admin: 03/28/18 21:10 Dose: 18 mcg Trazodone HCl (Desyrel) 100 mg PO HS [facility] Last Admin: 03/28/18 21:10 Dose: 100 mg - Labs Labs: 03/28/18 05:50 03/28/18 05:50 PT 11.6 Seconds (9.8-13.1) 03/24/18 06:30 INR 1.0 (0.9-1.2) 03/24/18 06:30 APTT 26.2 Seconds (25.6-37.1) 03/24/18 06:30 - Constitutional Appears: No Acute Distress - Head Exam Head Exam: NORMOCEPHALIC - Eye Exam Eye Exam: Normal appearance - ENT Exam ENT Exam: Mucous Membranes Moist - Respiratory Exam Respiratory Exam: NORMAL BREATHING PATTERN - Cardiovascular Exam Cardiovascular Exam: +S1, +S2 - GI/Abdominal Exam GI & Abdominal Exam: Distended, Soft. absent: Firm, Guarding, Rigid, Tenderness , Rebound - Neurological Exam Neurological Exam: Alert, Awake - Psychiatric Exam Psychiatric exam: Normal Mood - Skin Skin Exam: Dry, Intact, Normal Color, Warm Assessment and Plan - Assessment and Plan (Free Text) Assessment: 77M with post-op ileus likely 2/2 narcotic pain meds Plan: Keep NPO IVF F/u CDiff Serial abd exams Correct electrolyte imbalances PRN Continue GI team bowel regimen Ambulate as able, continue PT Recommend C.Diff testing if clinical picture worsens Discussed with Dr. Iram BLANCO PGY2
[2018-03-29] MEDS: Enoxaparin 40 mg Syringe SC SCH (09:26)
[2018-03-29] MEDS: POLYETHYLENE GLYCOL 3350 17 GM/Dose PACKET PO SCH ×2 (09:27→17:38)
[2018-03-29] MEDS ORDERED: Neostigmine 1:1000 (1 mg/ml) Inj IV ONE (09:30)
[2018-03-29] MEDS ORDERED: Chlorhexidine Gluconate 1 APPL/PKT TP ONE (09:41)
--- NOTE | 2018-03-29 11:33 | CP.PCM.PN ---
Subjective - Date & Time of Evaluation Date of Evaluation: 03/29/18 Time of Evaluation: 10:00 - Subjective Subjective: Patient seen and examined. Had bowel movement consisting with large brown liquid today. Although abdomen remained distended patient felt some relief. Objective - Vital Signs/Intake and Output Vital Signs (last 24 hours): Temp Pulse Resp BP Pulse Ox 97.9 F 98 H 18 124/74 99 03/29/18 07:45 03/29/18 09:29 03/29/18 07:45 03/29/18 09:29 03/29/18 07:45 - Medications Medications: Current Medications Albuterol/Ipratropium (Duoneb 3 Mg/0.5 Mg (3 Ml) Ud) 3 ml INH RQ6 [facility] Last Admin: 03/29/18 07:23 Dose: 3 ml Amlodipine Besylate (Norvasc) 5 mg PO DAILY [facility] Last Admin: 03/29/18 09:28 Dose: Not Given Aspirin (Ecotrin) 81 mg PO DAILY [facility] Last Admin: 03/29/18 09:16 Dose: Not Given Atorvastatin Calcium (Lipitor) 20 mg PO DAILY@2100 [facility] Last Admin: 03/28/18 21:09 Dose: 20 mg Bisacodyl (Dulcolax) 10 mg [place] DAILY [facility] Last Admin: 03/29/18 09:27 Dose: 10 mg Calcium Carbonate (Oscal) 500 mg PO DAILY [facility] Last Admin: 03/29/18 09:28 Dose: Not Given Docusate Sodium (Colace) 100 mg PO TID [facility] Last Admin: 03/29/18 09:16 Dose: Not Given Donepezil HCl (Aricept) 5 mg PO DAILY [facility] Last Admin: 03/29/18 09:31 Dose: Not Given Enoxaparin Sodium (Lovenox) 40 mg SC DAILY [facility] PRN Reason: Protocol Last Admin: 03/29/18 09:26 Dose: 40 mg Ergocalciferol (Drisdol 50,000 Intl Units Cap) 1 cap PO Q7D [facility] Last Admin: 03/23/18 22:55 Dose: 1 cap Sodium Chloride (Sodium Chloride 0.9%) 1,000 mls @ 100 mls/hr IV .Q10H [facility] Stop: 03/29/18 19:08 Last Admin: 03/29/18 05:43 Dose: 100 mls/hr Ketorolac Tromethamine (Toradol) 30 mg IVP Q6 PRN PRN Reason: Pain, severe (8-10) Last Admin: 03/27/18 21:07 Dose: 30 mg Ketorolac Tromethamine (Toradol) 15 mg IVP Q6 PRN PRN Reason: Pain, moderate (4-7) Last Admin: 03/27/18 13:57 Dose: 15 mg Losartan Potassium (Cozaar) 100 mg PO DAILY [facility] Last Admin: 03/29/18 09:29 Dose: 100 mg Metoclopramide HCl (Reglan) 10 mg IVP Q6 PRN PRN Reason: Nausea/Vomiting Last Admin: 03/29/18 06:06 Dose: 10 mg Metoprolol Tartrate (Lopressor) 50 mg PO BID [facility] Last Admin: 03/29/18 09:16 Dose: Not Given Oxycodone/Acetaminophen (Percocet 5/325 Mg Tab) 1 tab PO Q4 PRN PRN Reason: Pain, moderate (4-7) Stop: 03/30/18 05:46 Oxycodone/Acetaminophen (Percocet 5/325 Mg Tab) 2 tab PO Q4 PRN PRN Reason: Pain, severe (8-10) Stop: 03/30/18 05:47 Pantoprazole Sodium (Protonix Inj) 40 mg IVP DAILY [facility] Last Admin: 03/29/18 09:26 Dose: 40 mg Polyethylene Glycol (Miralax) 17 gm PO BID [facility] Last Admin: 03/29/18 09:27 Dose: 17 gm Pregabalin (Lyrica) 50 mg PO BID [facility] Last Admin: 03/29/18 09:16 Dose: Not Given Primidone (Mysoline) 50 mg PO BID [facility] Last Admin: 03/29/18 09:27 Dose: 50 mg Tiotropium [place] (Spiriva) 18 mcg INH Q24H [facility] Last Admin: 03/28/18 21:10 Dose: 18 mcg Trazodone HCl (Desyrel) 100 mg PO HS [facility] Last Admin: 03/28/18 21:10 Dose: 100 mg - Labs Labs: 03/28/18 05:50 03/28/18 05:50 PT 11.6 Seconds (9.8-13.1) 03/24/18 06:30 INR 1.0 (0.9-1.2) 03/24/18 06:30 APTT 26.2 Seconds (25.6-37.1) 03/24/18 06:30 - Constitutional Appears: No Acute Distress - Head Exam Head Exam: ATRAUMATIC - Eye Exam Eye Exam: absent: Scleral icterus - ENT Exam ENT Exam: Mucous Membranes Moist - Neck Exam Neck Exam: absent: Meningismus - Respiratory Exam Respiratory Exam: absent: Rales, Rhonchi, Wheezes, Respiratory Distress - Cardiovascular Exam Cardiovascular Exam: REGULAR RHYTHM, +S1, +S2 - GI/Abdominal Exam GI & Abdominal Exam: Distended, Firm. absent: Tenderness - Rectal Exam Rectal Exam: Deferred - Extremities Exam Extremities Exam: absent: Full ROM (limited ROM on right knee) - Neurological Exam Neurological Exam: Alert, Oriented x3 - Psychiatric Exam Psychiatric exam: Normal Affect - Skin Skin Exam: Dry, Intact Assessment and Plan - Assessment and Plan (Free Text) Assessment: 77 yo male with history of CAD, HTN, Hearing impairment and OA transferred from the [facility] to [facility] and admitted to TCU for continued management and therapy. Patient had right TKR on 03/20/2018 after failing conservative management for OA. Developed ileus after surgery. 1. Post-op Ileus Obstructive series showed bowel ileus had large bowel movement and was able to pass gas CT scan of abdomen with PO/IV contrast: mild diffused dilatation of small bowel and colon without evidence of obstruction patient had another bowel movement with brownish liquid after taking oral Iohexol. He claimed he had much relief. start tonight with clear liquid diet Reglan 10mg IV q 6hrs prn for nausea/vomiting 2. Osteoarthritis s/p right TKR Pain management with Toradol continue OT/PT follow up with Dr Louis, in 2 weeks 3. HTN BP stable continue Lopressor/ Losartan/Amlodipine 4. CAD continue ASA and Lipitor 5. DVT prophylaxis continue Lovenox
[2018-03-29] MEDS ORDERED: Iohexol 240 (50 ml) PO ONE (12:40)
[2018-03-29] MEDS ORDERED: Iohexol 240 (50 ml) ONE (12:47)
--- NOTE | 2018-03-29 15:47 | CP.PCM.PN ---
<Leonid Moon - Last Filed: 03/29/18 16:59> Subjective - Date & Time of Evaluation Date of Evaluation: 03/29/18 Time of Evaluation: 07:45 - Subjective Subjective: PGY5 GI Fellow Progress Note LATE ENTRY Patient seen and examined bedside this morning. The patient states that he had episode of nausea and small volume emesis this morning. Had multiple bowel movements last night and this morning and continues to pass gas. Abdomen remains distended but improved from prior per patient. 12 system ROS performed and negative except where stated. Objective - Vital Signs/Intake and Output Vital Signs (last 24 hours): Temp Pulse Resp BP Pulse Ox 97.9 F 98 H 18 124/74 99 03/29/18 07:45 03/29/18 09:29 03/29/18 07:45 03/29/18 09:29 03/29/18 07:45 - Medications Medications: Current Medications Albuterol/Ipratropium (Duoneb 3 Mg/0.5 Mg (3 Ml) Ud) 3 ml INH RQ6 [facility] Last Admin: 03/29/18 13:15 Dose: 3 ml Amlodipine Besylate (Norvasc) 5 mg PO DAILY [facility] Last Admin: 03/29/18 09:28 Dose: Not Given Aspirin (Ecotrin) 81 mg PO DAILY [facility] Last Admin: 03/29/18 09:16 Dose: Not Given Atorvastatin Calcium (Lipitor) 20 mg PO DAILY@2100 [facility] Last Admin: 03/28/18 21:09 Dose: 20 mg Bisacodyl (Dulcolax) 10 mg RI DAILY [facility] Last Admin: 03/29/18 09:27 Dose: 10 mg Calcium Carbonate (Oscal) 500 mg PO DAILY [facility] Last Admin: 03/29/18 09:28 Dose: Not Given Docusate Sodium (Colace) 100 mg PO TID [facility] Last Admin: 03/29/18 12:26 Dose: 100 mg Donepezil HCl (Aricept) 5 mg PO DAILY [facility] Last Admin: 03/29/18 09:31 Dose: Not Given Enoxaparin Sodium (Lovenox) 40 mg SC DAILY [facility] PRN Reason: Protocol Last Admin: 03/29/18 09:26 Dose: 40 mg Ergocalciferol (Drisdol 50,000 Intl Units Cap) 1 cap PO Q7D [facility] Last Admin: 03/23/18 22:55 Dose: 1 cap Sodium Chloride (Sodium Chloride 0.9%) 1,000 mls @ 100 mls/hr IV .Q10H [facility] Stop: 03/29/18 19:08 Last Admin: 03/29/18 05:43 Dose: 100 mls/hr Ketorolac Tromethamine (Toradol) 30 mg IVP Q6 PRN PRN Reason: Pain, severe (8-10) Last Admin: 03/27/18 21:07 Dose: 30 mg Ketorolac Tromethamine (Toradol) 15 mg IVP Q6 PRN PRN Reason: Pain, moderate (4-7) Last Admin: 03/27/18 13:57 Dose: 15 mg Losartan Potassium (Cozaar) 100 mg PO DAILY [facility] Last Admin: 03/29/18 09:29 Dose: 100 mg Metoclopramide HCl (Reglan) 10 mg IVP Q6 PRN PRN Reason: Nausea/Vomiting Last Admin: 03/29/18 06:06 Dose: 10 mg Metoprolol Tartrate (Lopressor) 50 mg PO BID [facility] Last Admin: 03/29/18 09:16 Dose: Not Given Oxycodone/Acetaminophen (Percocet 5/325 Mg Tab) 1 tab PO Q4 PRN PRN Reason: Pain, moderate (4-7) Stop: 03/30/18 05:46 Oxycodone/Acetaminophen (Percocet 5/325 Mg Tab) 2 tab PO Q4 PRN PRN Reason: Pain, severe (8-10) Stop: 03/30/18 05:47 Pantoprazole Sodium (Protonix Inj) 40 mg IVP DAILY [facility] Last Admin: 03/29/18 09:26 Dose: 40 mg Polyethylene Glycol (Miralax) 17 gm PO BID [facility] Last Admin: 03/29/18 09:27 Dose: 17 gm Pregabalin (Lyrica) 50 mg PO BID [facility] Last Admin: 03/29/18 09:16 Dose: Not Given Primidone (Mysoline) 50 mg PO BID [facility] Last Admin: 03/29/18 09:27 Dose: 50 mg Tiotropium [place] (Spiriva) 18 mcg INH Q24H [facility] Last Admin: 03/28/18 21:10 Dose: 18 mcg Trazodone HCl (Desyrel) 100 mg PO [facility] Last Admin: 03/28/18 21:10 Dose: 100 mg - Labs Labs: 03/28/18 05:50 03/28/18 05:50 PT 11.6 Seconds (9.8-13.1) 03/24/18 06:30 INR 1.0 (0.9-1.2) 03/24/18 06:30 APTT 26.2 Seconds (25.6-37.1) 03/24/18 06:30 - Constitutional Appears: Non-toxic, No Acute Distress - Eye Exam Eye Exam: EOMI, PERRL - ENT Exam ENT Exam: Mucous Membranes Moist - Respiratory Exam Respiratory Exam: Clear to Ausculation Bilateral. absent: Rales, Rhonchi, Wheezes - Cardiovascular Exam Cardiovascular Exam: RRR, +S1, +S2 - GI/Abdominal Exam GI & Abdominal Exam: Distended, Soft, Hypoactive Bowel Sounds. absent: Firm, Guarding, Rigid, Tenderness, Organomegaly - Extremities Exam Extremities Exam: Normal Inspection. absent: Pedal Edema - Neurological Exam Neurological Exam: Alert, Awake, Oriented x3 - Psychiatric Exam Psychiatric exam: Normal Affect, Normal Mood - Skin Skin Exam: Dry, Warm Assessment and Plan - Assessment and Plan (Free Text) Assessment: Patient is a 77yo male with PMHx significant for CAD, HTN, OA who is currently in TCU following right total knee replacement. -Post-operative ileus/constipation - resolving, passing flatus/stool -S/P total right knee replacement Plan: -Given nausea, vomiting recommend maintaining NPO -Case discussed with surgical consult at bedside this morning, no new recommendations -Continues to pass stool/flatus -Continue with bowel regimen - Miralax, Dulcolax -Advance diet to liquids if no further episodes of nausea/vomiting -If symptoms worsen/persist or vomiting persists, recommend CT A/P +PO/IV contrast -Ambulation/rehabilitation as tolerated by patient and as indicated following knee replacement <Gary Power - Last Filed: 03/30/18 10:57> Objective - Vital Signs/Intake and Output Vital Signs (last 24 hours): Temp Pulse Resp BP Pulse Ox 98.6 F 105 H 20 119/86 92 L 03/30/18 09:00 03/30/18 09:00 03/30/18 09:00 03/30/18 09:00 03/30/18 09:00 - Labs Labs: 03/28/18 05:50 03/30/18 05:00 PT 11.6 Seconds (9.8-13.1) 03/24/18 06:30 INR 1.0 (0.9-1.2) 03/24/18 06:30 APTT 26.2 Seconds (25.6-37.1) 03/24/18 06:30 Attending/Attestation - Attestation I have personally seen and examined this patient.: Yes I have fully participated in the care of the patient.: Yes I have reviewed all pertinent clinical information, including history, physical exam and plan: Yes Notes (Text): 03/30/18 10:56 This is a 77 yo male with PMHx significant for CAD, HTN, OA who is currently in TCU following right total knee replacement s/p post-operative ileus/ constipation -Given nausea, vomiting recommend maintaining NPO -Continues to pass stool/flatus -Continue with bowel regimen - Miralax, Dulcolax -If symptoms worsen/persist or vomiting persists, recommend CT A/P +PO/IV contrast
[2018-03-29 16:13] VITALS: RESP 20
[2018-03-29] MEDS: Tiotropium 18 mcg Cap For Inhalation INH SCH (22:14)
[2018-03-30] MEDS: Sodium Chloride 0.9% 1,000 ML IV SCH ×2 (00:02→09:19)
[2018-03-30] MEDS: Albuterol-Ipratrop 3 mg / 0.5 (3 ml) UD INH SCH ×2 (01:32→07:46)
[2018-03-30 06:24] LABS: BLOOD UREA NITROGEN 14 mg/dl (9-20); CALCIUM 8.6 mg/dL (8.4-10.2); GFR AFRICAN-AMERICAN > 60; GFR NON-AFRICAN AMERICAN > 60
[2018-03-30] MEDS: POLYETHYLENE GLYCOL 3350 17 GM/Dose PACKET PO SCH (08:35)
[2018-03-30] MEDS: Enoxaparin 40 mg Syringe SC SCH (08:37)
[2018-03-30 08:40] VITALS: BP 119/86; PULSE 105
--- NOTE | 2018-03-30 08:50 | CP.PCM.PN ---
Subjective - Date & Time of Evaluation Date of Evaluation: 03/30/18 Time of Evaluation: 07:00 - Subjective Subjective: General Surgery Pt S&E, had 2 episodes of emesis overnight. Still with liquid BMs. Complaining of distention. Objective - Vital Signs/Intake and Output Vital Signs (last 24 hours): Temp Pulse Resp BP Pulse Ox 97.7 F 105 H 20 119/86 99 03/29/18 20:02 03/30/18 08:38 03/29/18 20:02 03/30/18 08:38 03/29/18 20:02 - Medications Medications: Current Medications Albuterol/Ipratropium (Duoneb 3 Mg/0.5 Mg (3 Ml) Ud) 3 ml INH RQ6 [facility] Last Admin: 03/30/18 07:46 Dose: 3 ml Amlodipine Besylate (Norvasc) 5 mg PO DAILY [facility] Last Admin: 03/30/18 08:36 Dose: Not Given Aspirin (Ecotrin) 81 mg PO DAILY [facility] Last Admin: 03/30/18 08:39 Dose: Not Given Atorvastatin Calcium (Lipitor) 20 mg PO DAILY@2100 [facility] Last Admin: 03/29/18 22:14 Dose: 20 mg Bisacodyl (Dulcolax) 10 mg [place] DAILY [facility] Last Admin: 03/30/18 08:34 Dose: Not Given Calcium Carbonate (Oscal) 500 mg PO DAILY [facility] Last Admin: 03/30/18 08:40 Dose: Not Given Docusate Sodium (Colace) 100 mg PO TID [facility] Last Admin: 03/30/18 08:37 Dose: Not Given Enoxaparin Sodium (Lovenox) 40 mg SC DAILY [facility] PRN Reason: Protocol Last Admin: 03/30/18 08:37 Dose: 40 mg Ergocalciferol (Drisdol 50,000 Intl Units Cap) 1 cap PO Q7D [facility] Last Admin: 03/23/18 22:55 Dose: 1 cap Sodium Chloride (Sodium Chloride 0.9%) 1,000 mls @ 100 mls/hr IV .Q10H [facility] Stop: 03/30/18 23:52 Last Admin: 03/30/18 00:02 Dose: 100 mls/hr Ketorolac Tromethamine (Toradol) 30 mg IVP Q6 PRN PRN Reason: Pain, severe (8-10) Last Admin: 03/27/18 21:07 Dose: 30 mg Ketorolac Tromethamine (Toradol) 15 mg IVP Q6 PRN PRN Reason: Pain, moderate (4-7) Last Admin: 03/27/18 13:57 Dose: 15 mg Losartan Potassium (Cozaar) 100 mg PO DAILY [facility] Last Admin: 03/30/18 08:38 Dose: Not Given Metoclopramide HCl (Reglan) 10 mg IVP Q6 PRN PRN Reason: Nausea/Vomiting Last Admin: 03/30/18 05:21 Dose: 10 mg Metoprolol Tartrate (Lopressor) 50 mg PO BID [facility] Last Admin: 03/30/18 08:35 Dose: Not Given Pantoprazole Sodium (Protonix Inj) 40 mg IVP DAILY [facility] Last Admin: 03/30/18 08:38 Dose: 40 mg Polyethylene Glycol (Miralax) 17 gm PO BID [facility] Last Admin: 03/30/18 08:35 Dose: Not Given Pregabalin (Lyrica) 50 mg PO BID [facility] Last Admin: 03/30/18 08:39 Dose: Not Given Primidone (Mysoline) 50 mg PO BID [facility] Last Admin: 03/30/18 08:39 Dose: Not Given Tiotropium [place] (Spiriva) 18 mcg INH Q24H [facility] Last Admin: 03/29/18 22:14 Dose: 18 mcg Trazodone HCl (Desyrel) 100 mg PO HS [facility] Last Admin: 03/29/18 22:13 Dose: 100 mg - Labs Labs: 03/28/18 05:50 03/30/18 05:00 PT 11.6 Seconds (9.8-13.1) 03/24/18 06:30 INR 1.0 (0.9-1.2) 03/24/18 06:30 APTT 26.2 Seconds (25.6-37.1) 03/24/18 06:30 - Constitutional Appears: Non-toxic, No Acute Distress - Head Exam Head Exam: ATRAUMATIC, NORMOCEPHALIC - Eye Exam Eye Exam: EOMI. absent: Scleral icterus - Respiratory Exam Respiratory Exam: NORMAL BREATHING PATTERN. absent: Respiratory Distress - Cardiovascular Exam Cardiovascular Exam: Tachycardia - GI/Abdominal Exam GI & Abdominal Exam: Distended, Guarding (mild), Soft, Tenderness. absent: Firm , Rigid, Rebound - Neurological Exam Neurological Exam: Alert, Awake - Skin Skin Exam: Dry, Warm Assessment and Plan - Assessment and Plan (Free Text) Assessment: 77M with post-op ileus Plan: Keep NPO IVF F/u CDiff Serial abd exams Correct electrolyte imbalances PRN Continue GI team bowel regimen Ambulate as able, continue PT Recommend C.Diff testing PGY4
--- NOTE | 2018-03-30 09:14 | CP.PCM.PN ---
<Leonid Moon - Last Filed: 03/30/18 10:06> Subjective - Date & Time of Evaluation Date of Evaluation: 03/30/18 Time of Evaluation: 08:30 - Subjective Subjective: PGY5 GI Fellow Progress Note Patient seen and examined bedside this morning. Continues to complain of diffuse abdominal pain. Had nausea and multiple episodes of vomiting last night and this morning. Plan is to transfer patient to inpatient side. Continues to pass liquid stool per nursing. 12 system ROS performed and negative except where stated. Objective - Vital Signs/Intake and Output Vital Signs (last 24 hours): Temp Pulse Resp BP Pulse Ox 97.7 F 105 H 20 119/86 99 03/29/18 20:02 03/30/18 08:38 03/29/18 20:02 03/30/18 08:38 03/29/18 20:02 - Medications Medications: Current Medications Albuterol/Ipratropium (Duoneb 3 Mg/0.5 Mg (3 Ml) Ud) 3 ml INH RQ6 [facility] Last Admin: 03/30/18 07:46 Dose: 3 ml Amlodipine Besylate (Norvasc) 5 mg PO DAILY [facility] Last Admin: 03/30/18 08:36 Dose: Not Given Aspirin (Ecotrin) 81 mg PO DAILY [facility] Last Admin: 03/30/18 08:39 Dose: Not Given Atorvastatin Calcium (Lipitor) 20 mg PO DAILY@2100 [facility] Last Admin: 03/29/18 22:14 Dose: 20 mg Bisacodyl (Dulcolax) 10 mg [place] DAILY [facility] Last Admin: 03/30/18 08:34 Dose: Not Given Calcium Carbonate (Oscal) 500 mg PO DAILY [facility] Last Admin: 03/30/18 08:40 Dose: Not Given Docusate Sodium (Colace) 100 mg PO TID [facility] Last Admin: 03/30/18 08:37 Dose: Not Given Enoxaparin Sodium (Lovenox) 40 mg SC DAILY [facility] PRN Reason: Protocol Last Admin: 03/30/18 08:37 Dose: 40 mg Ergocalciferol (Drisdol 50,000 Intl Units Cap) 1 cap PO Q7D [facility] Last Admin: 03/23/18 22:55 Dose: 1 cap Sodium Chloride (Sodium Chloride 0.9%) 1,000 mls @ 100 mls/hr IV .Q10H [facility] Stop: 03/30/18 23:52 Last Admin: 03/30/18 00:02 Dose: 100 mls/hr Ketorolac Tromethamine (Toradol) 30 mg IVP Q6 PRN PRN Reason: Pain, severe (8-10) Last Admin: 03/27/18 21:07 Dose: 30 mg Ketorolac Tromethamine (Toradol) 15 mg IVP Q6 PRN PRN Reason: Pain, moderate (4-7) Last Admin: 03/27/18 13:57 Dose: 15 mg Losartan Potassium (Cozaar) 100 mg PO DAILY [facility] Last Admin: 03/30/18 08:38 Dose: Not Given Metoclopramide HCl (Reglan) 10 mg IVP Q6 PRN PRN Reason: Nausea/Vomiting Last Admin: 03/30/18 05:21 Dose: 10 mg Metoprolol Tartrate (Lopressor) 50 mg PO BID [facility] Last Admin: 03/30/18 08:35 Dose: Not Given Pantoprazole Sodium (Protonix Inj) 40 mg IVP DAILY [facility] Last Admin: 03/30/18 08:38 Dose: 40 mg Polyethylene Glycol (Miralax) 17 gm PO BID [facility] Last Admin: 03/30/18 08:35 Dose: Not Given Pregabalin (Lyrica) 50 mg PO BID [facility] Last Admin: 03/30/18 08:39 Dose: Not Given Primidone (Mysoline) 50 mg PO BID [facility] Last Admin: 03/30/18 08:39 Dose: Not Given Tiotropium [place] (Spiriva) 18 mcg INH Q24H [facility] Last Admin: 03/29/18 22:14 Dose: 18 mcg Trazodone HCl (Desyrel) 100 mg PO [facility] Last Admin: 03/29/18 22:13 Dose: 100 mg - Labs Labs: 03/28/18 05:50 03/30/18 05:00 PT 11.6 Seconds (9.8-13.1) 03/24/18 06:30 INR 1.0 (0.9-1.2) 03/24/18 06:30 APTT 26.2 Seconds (25.6-37.1) 03/24/18 06:30 - Constitutional Appears: Other (uncomfortable) - Eye Exam Eye Exam: EOMI, PERRL - ENT Exam ENT Exam: Mucous Membranes Moist - Respiratory Exam Respiratory Exam: Clear to Ausculation Bilateral. absent: Rales, Rhonchi, Wheezes - Cardiovascular Exam Cardiovascular Exam: Tachycardia, REGULAR RHYTHM, +S1, +S2 - GI/Abdominal Exam GI & Abdominal Exam: Distended, Soft, Tenderness (diffusely), Hypoactive Bowel Sounds. absent: Firm, Guarding, Rigid, Organomegaly - Extremities Exam Extremities Exam: absent: Pedal Edema Additional comments: RLE s/p knee replacement - Neurological Exam Neurological Exam: Alert, Awake, Oriented x3 - Psychiatric Exam Psychiatric exam: Normal Affect, Normal Mood - Skin Skin Exam: Dry, Warm Assessment and Plan - Assessment and Plan (Free Text) Assessment: Patient is a 77yo male with PMHx significant for CAD, HTN, OA who is currently in TCU following right total knee replacement. -Post-operative ileus/constipation - passing flatus/stool -S/P total right knee replacement Plan: -CT A/P performed last night without any overt obstruction noted; no significant stool burden -Given persistence of abdominal distention and recurrent nausea/vomiting, recommend inpatient evaluation -Contrast from CT passing through to colon, dilated loops of bowel noted -May require NGT decompression -Would continue NPO <Gary Power - Last Filed: 03/30/18 10:59> Objective - Vital Signs/Intake and Output Vital Signs (last 24 hours): Temp Pulse Resp BP Pulse Ox 98.6 F 105 H 20 119/86 92 L 03/30/18 09:00 03/30/18 09:00 03/30/18 09:00 03/30/18 09:00 03/30/18 09:00 - Labs Labs: 03/28/18 05:50 03/30/18 05:00 PT 11.6 Seconds (9.8-13.1) 03/24/18 06:30 INR 1.0 (0.9-1.2) 03/24/18 06:30 APTT 26.2 Seconds (25.6-37.1) 03/24/18 06:30 Attending/Attestation - Attestation I have personally seen and examined this patient.: Yes I have fully participated in the care of the patient.: Yes I have reviewed all pertinent clinical information, including history, physical exam and plan: Yes Notes (Text): 03/30/18 10:58 This is a 77 yr old male with PMHx significant for CAD, HTN, OA who is currently in TCU following right total knee replacement post-operative ileus/ constipation -CT A/P performed last night without any overt obstruction noted; no significant stool burden -Given persistence of abdominal distention and recurrent nausea/vomiting, recommend inpatient evaluation -Contrast from CT passing through to colon, dilated loops of bowel noted -May require NGT decompression -Would continue NPO
[2018-03-30 09:21] VITALS: TEMP 98.6; O2SAT 92
--- NOTE | 2018-03-30 10:12 | CP.PCM.DIS ---
Provider - Provider Date of Admission: 03/23/18 18:30 Attending physician: Prabhakar Johnson DO Consults: Dr Brian Walden Time Spent in preparation of Discharge (in minutes): 25 Hospital Course - Lab Results Lab Results: Most Recent Lab Values WBC 9.6 K/uL (4.8-10.8) 03/28/18 05:50 RBC 3.39 Mil/uL (4.40-5.90) L 03/28/18 05:50 Hgb 10.9 g/dL (12.0-18.0) L 03/28/18 05:50 Hct 32.3 % (35.0-51.0) L 03/28/18 05:50 MCV 95.2 fl (80.0-94.0) H 03/28/18 05:50 MCH 32.1 pg (27.0-31.0) H 03/28/18 05:50 MCHC 33.8 g/dL (33.0-37.0) 03/28/18 05:50 RDW 14.0 % (11.5-14.5) 03/28/18 05:50 Plt Count 268 K/uL (130-400) 03/28/18 05:50 MPV 9.4 fl (7.2-11.7) 03/24/18 06:30 Neut % (Auto) 80.8 % (50.0-75.0) H 03/24/18 06:30 Lymph % (Auto) 10.4 % (20.0-40.0) L 03/24/18 06:30 [place] % (Auto) 8.5 % (0.0-10.0) 03/24/18 06:30 Eos % (Auto) 0.0 % (0.0-4.0) 03/24/18 06:30 Baso % (Auto) 0.3 % (0.0-2.0) 03/24/18 06:30 Neut # (Auto) 9.8 K/uL (1.8-7.0) H 03/24/18 06:30 Lymph # (Auto) 1.3 K/uL (1.0-4.3) 03/24/18 06:30 [place] # (Auto) 1.0 K/uL (0.0-0.8) H 03/24/18 06:30 Eos # (Auto) 0.0 K/uL (0.0-0.7) 03/24/18 06:30 Baso # (Auto) 0.0 K/uL (0.0-0.2) 03/24/18 06:30 PT 11.6 Seconds (9.8-13.1) 03/24/18 06:30 INR 1.0 (0.9-1.2) 03/24/18 06:30 APTT 26.2 Seconds (25.6-37.1) 03/24/18 06:30 Sodium 137 mmol/l (132-148) 03/30/18 05:00 Potassium 3.8 MMOL/L (3.6-5.0) 03/30/18 05:00 Chloride 102 mmol/L (98-107) 03/30/18 05:00 Carbon Dioxide 21 mmol/L (22-30) L 03/30/18 05:00 Anion Gap 18 (10-20) 03/30/18 05:00 BUN 14 mg/dl (9-20) 03/30/18 05:00 Creatinine 1.1 mg/dl (0.8-1.5) 03/30/18 05:00 Est GFR ( Amer) > 60 03/30/18 05:00 Est GFR (Non-Af Amer) > 60 03/30/18 05:00 POC Glucose (mg/dL) 109 mg/dL (65-110) 03/29/18 20:51 Random Glucose 105 mg/dL (75-110) 03/30/18 05:00 Calcium 8.6 mg/dL (8.4-10.2) 03/30/18 05:00 Phosphorus 2.8 mg/dl (2.5-4.5) 03/28/18 05:50 Magnesium 2.3 MG/DL (1.6-2.3) 03/28/18 05:50 Total Bilirubin 0.6 mg/dl (0.2-1.3) 03/24/18 06:30 AST 76 U/L (17-59) H D 03/24/18 06:30 ALT 61 U/L (21-72) 03/24/18 06:30 Alkaline Phosphatase 70 U/L (38-126) 03/24/18 06:30 Total Protein 7.2 G/DL (6.3-8.2) 03/24/18 06:30 Albumin 3.4 g/dL (3.5-5.0) L 03/24/18 06:30 Globulin 3.7 gm/dL (2.2-3.9) 03/24/18 06:30 Albumin/Globulin Ratio 0.9 (1.0-2.1) L 03/24/18 06:30 - Hospital Course Hospital Course: 77 yo male with history of CAD, HTN and OA had right TKR at [facility] on after failing conservative management. [place] bloated 1st day postop followed with abdominal distention associated with nausea and no BM but was able to pass flatus. Last BM was before surgery. Patient was transferred to TCU on 03/23/2018 for therapy. He continued to have abdominal distention with abdominal discomfort and nausea. Obstructive series showed ileus. GI and surgery were consulted and patient was put on laxative and NPO. He started passing out brownish liquid stools but continued to have abdominal distention and nausea. CT scan of abdomen with oral/IV contrast showed mild diffused dilatation of small bowel and colon without evidence of obstruction. Patient again was able to pass large amount of brownish liquid stools and had relief from abdominal discomfort. He was restarted on clear liquid diet and tolerated it. This morning patient started vomiting. He was sent to the ER for admission to med/surg. 1. Post-op Ileus Obstructive series showed bowel ileus had large loose bowel movement and was able to pass gas but continued to have abdominal distention associated with nausea and vomiting CT scan of abdomen with PO/IV contrast: mild diffused dilatation of small bowel and colon without evidence of obstruction transfer to ER 2. Osteoarthritis s/p right TKR Pain management with Toradol continue OT/PT 3. HTN BP stable continue Lopressor/ Losartan/Amlodipine 4. CAD continue ASA and Lipitor 5. DVT prophylaxis continue Lovenox Discharge Exam - Head Exam Head Exam: ATRAUMATIC, NORMOCEPHALIC - Eye Exam Eye Exam: absent: Scleral icterus - ENT Exam ENT Exam: Mucous Membranes Moist - Respiratory Exam Respiratory Exam: absent: Rales, Rhonchi, Wheezes, Respiratory Distress - Cardiovascular Exam Cardiovascular Exam: Tachycardia - GI/Abdominal Exam GI & Abdominal Exam: Distended, Firm, Hypoactive Bowel Sounds. absent: Tenderness - Rectal Exam Rectal Exam: Deferred - Back Exam Back exam: absent: tenderness - Neurological Exam Neurological exam: Alert, Oriented x3 - Psychiatric Exam Psychiatric exam: Normal Affect - Skin Skin Exam: Dry, Intact Discharge Plan - Follow Up Plan Condition: GOOD Disposition: Trans to Other Acute Care Hosp
== END 2018-03-30 09:30 | disposition short-term general hospital (02) | DRG 560 ==
LOC: H.TCU 18:30
PROVIDERS: ADMIT Internal Medicine; ATTEND Internal Medicine
PROC: F08Z1FZ Dressing Techniques Treatment using Assistive, Adaptive, Supportive or Protective Equipment (ICD-10-PCS; principal; 2018-03-23)
PROC: F07Z5FZ Bed Mobility Treatment using Assistive, Adaptive, Supportive or Protective Equipment (ICD-10-PCS; 2018-03-23)
PROC: F07Z8FZ Transfer Training Treatment using Assistive, Adaptive, Supportive or Protective Equipment (ICD-10-PCS; 2018-03-23)
PROC: F07Z9FZ Gait Training/Functional Ambulation Treatment using Assistive, Adaptive, Supportive or Protective Equipment (ICD-10-PCS; 2018-03-23)
PROC: F07L6ZZ Therapeutic Exercise Treatment of Musculoskeletal System - Lower Back / Lower Extremity (ICD-10-PCS; 2018-03-23)
DX: Z47.1 Aftercare following joint replacement surgery (principal); D62 Acute posthemorrhagic anemia; K56.7 Ileus, unspecified; Z96.651 Presence of right artificial knee joint; E55.9 Vitamin D deficiency, unspecified; E78.5 Hyperlipidemia, unspecified; I25.10 Atherosclerotic heart disease of native coronary artery without angina pectoris; I10 Essential (primary) hypertension; E78.00 Pure hypercholesterolemia, unspecified; F41.9 Anxiety disorder, unspecified; H91.90 Unspecified hearing loss, unspecified ear; K64.8 Other hemorrhoids; T40.605A Adverse effect of unspecified narcotics, initial encounter

== ENCOUNTER 2018-03-30 09:45 | Inpatient (IN) | payer MEDICARE, OTHER ==
[2018-03-30] MEDS ORDERED: Sodium Chloride 0.9% 1,000 ML IV STA (10:08)
--- NOTE | 2018-03-30 10:13 | ED PDOC ---
HPI: Abdomen Time Seen by Provider: 03/30/18 09:53 Chief Complaint (Nursing): GI Problem History Per: Patient Onset/Duration Of Symptoms: Days (2) Current Symptoms Are (Timing): Still Present Associated Symptoms: Nausea, Vomiting, Diarrhea Exacerbating Factors: None Alleviating Factors: None Additional Complaint(s): Referred from TCU for abd distention, vomiting and loose stools since last night. Evaluated by Surgery and GI fellow after CT abd/pelvis revealed ileus. No evidence of obstruction. No fever. No blood in stool or vomitus. Past Medical History Vital Signs: Last Vital Signs Temp 99.3 F 03/30/18 10:17 Pulse 80 03/30/18 10:17 Resp 22 03/30/18 10:17 BP 120/70 03/30/18 10:17 Pulse Ox 95 03/30/18 10:17 - Medical History PMH: Anxiety, Arthritis, HTN, Hypercholesterolemia Denies: Chronic Kidney Disease - Surgical History Surgical History: Endoscopy - Family History Family History: States: Unknown Family Hx - Home Medications Home Medications: Ambulatory Orders Medication Instructions Recorded Valsartan/Hydrochlorothiazide 1 tab PO DAILY 05/28/14 [Valsartan-Hctz 160-12.5 mg Tab] Donepezil HCl [Aricept] 5 mg PO DAILY 01/04/18 Metoprolol Tartrate 50 mg PO BID 01/04/18 Primidone [Mysoline] 50 mg PO BID 01/04/18 amLODIPine [Norvasc] 5 mg PO DAILY 01/04/18 traZODone [Desyrel] 100 mg PO HS 01/04/18 Albuterol/Ipratropium [Duoneb 3 3 ml INH RQ6 neb 03/23/18 mg/0.5 mg (3 ml) UD] Azithromycin [Zithromax] 500 mg PO DAILY tab 03/23/18 Calcium Carbonate [Oscal] 500 mg PO DAILY tab 03/23/18 Docusate [Colace] 100 mg PO TID cap 03/23/18 Enoxaparin [Lovenox] 40 mg SQ DAILY 03/23/18 Ergocalciferol [Drisdol 50,000 1 cap PO Q7D cap 03/23/18 Intl Units Cap] Losartan [Cozaar] 100 mg PO DAILY 03/23/18 Pregabalin [Lyrica] 50 mg PO BID cap 03/23/18 Tiotropium [Spiriva] 18 mcg INH RQ24 cap 03/23/18 methylPREDNISolone [Solu-Medrol] 20 mg IVP BID ml 03/23/18 oxyCODONE/Acetaminophen [Percocet 1 tab PO Q4 PRN tab 03/23/18 5/325 mg Tab] - Allergies Allergies/Adverse Reactions: Allergies Allergy/AdvReac Type Severity Reaction Status Date / Time No Known Allergies Allergy Verified 03/23/18 18:43 Review of Systems ROS Statement: Except As Marked, All Systems Reviewed And Found Negative Gastrointestinal: Positive for: Nausea, Vomiting, Abdominal Pain, Diarrhea Musculoskeletal: Positive for: Other (Knee pain) Physical Exam - Reviewed Nursing Documentation Reviewed: Yes Vital Signs Reviewed: Yes - Physical Exam Appears: Positive for: Non-toxic, No Acute Distress Head Exam: Positive for: ATRAUMATIC, NORMAL INSPECTION, NORMOCEPHALIC Skin: Positive for: Normal Color, Warm, DRY Eye Exam: Positive for: EOMI, Normal appearance, PERRL ENT: Positive for: Normal ENT Inspection Neck: Positive for: Normal, Painless ROM Cardiovascular/Chest: Positive for: Regular Rate, Rhythm Respiratory: Positive for: CNT, Normal Breath Sounds Gastrointestinal/Abdominal: Positive for: Bowel Sounds (Decreased), Tenderness ( Mild diffuse tenderness), Distended. Negative for: Guarding, Rebound Back: Positive for: Normal Inspection Extremity: Negative for: Calf Tenderness Neurologic/Psych: Positive for: Alert, Oriented Disposition - Clinical Impression Clinical Impression: Ileus - Patient ED Disposition Is Patient to be Admitted: Yes - Disposition Disposition Time: 10:35 Condition: FAIR Forms: [employer] (Surinamese) - Pt Status Changed To: Hospital Disposition Of: Inpatient - Admit Certification Admit to Inpatient:: After my assessment, the patient will require hospitalization for at least two midnights. This is because of the severity of symptoms shown, intensity of services needed, and/or the medical risk in this patient being treated as an outpatient. - POA Present On Arrival: None
[2018-03-30 10:44] LABS: VENOUS BLOOD GAS BASE EXCESS -2.6 mmol/L (0.0-2.0); VENOUS BLOOD GAS PCO2 43 mmHg (40-60); VENOUS BLOOD GAS PO2 38 mm/Hg (30-55); VENOUS BLOOD PH 7.34 (7.32-7.43)
[2018-03-30 10:47] LABS: BASO % 0.1 % (0.0-2.0); EOS % 0.2 % (0.0-4.0); HEMOGLOBIN 11.6 g/dL (12.0-18.0); LYMPH # 0.5 K/uL (1.0-4.3); LYMPH % 4.6 % (20.0-40.0); MEAN CELL VOLUME 95.9 fl (80.0-94.0); MEAN CORPUSCULAR HEMOGLOBIN 31.9 pg (27.0-31.0); MEAN CORPUSCULAR HGB CONC 33.3 g/dL (33.0-37.0); MEAN PLATELET VOLUME 8.1 fl (7.2-11.7); MONO # 0.6 K/uL (0.0-0.8); MONO % 5.1 % (0.0-10.0); NEUT # 10.6 K/uL (1.8-7.0); PLATELET COUNT 351 K/uL (130-400); RBC 3.63 Mil/uL (4.40-5.90); RED CELL DISTRIBUTION WIDTH 14.7 % (11.5-14.5); WHITE BLOOD COUNT 11.7 K/uL (4.8-10.8)
[2018-03-30 10:57] LABS: ALBUMIN 3.4 g/dL (3.5-5.0); ALT/SGPT 77 U/L (21-72); AST/SGOT 81 U/L (17-59); BLOOD UREA NITROGEN 16 mg/dl (9-20); CALCIUM 8.4 mg/dL (8.4-10.2); GFR AFRICAN-AMERICAN > 60; GFR NON-AFRICAN AMERICAN > 60
--- NOTE | 2018-03-30 11:07 | CP.PCM.CON ---
<Cedric Manning - Last Filed: 03/30/18 11:13> History of Present Illness - History of Present Illness History of Present Illness: General Surgery Consult Note 77M seen in ED after being sent from TCU for distended, painful abdomen with nausea, vomiting and loose stool that began last night. Patient was previously being followed by surgical and GI team for post-op Ileus. Patient states that he had two separate episodes of emesis last night. He denies any further complaints, denies any F/C/CP/SOB. PMH: CAD, HTN, OA PSH: PCI, Right shoulder Fracture repair, right knee total replacement SH: No tobacco, EtOH, or drug use Meds: See MAR All: NKDA Review of Systems - Review of Systems All systems: reviewed and no additional remarkable complaints except Review of Systems: as per HPI Past Patient History - Infectious Disease Hx of Infectious Diseases: None - Past Medical History & Family History Past Medical History?: Yes - Past Social History Smoking Status: Never Smoked - CARDIAC Hx Hypercholesterolemia: Yes Hx Hypertension: Yes - PULMONARY Hx Respiratory Disorders: No - NEUROLOGICAL Hx Neurological Disorder: Yes Hx Dizziness: Yes (NO MEDICATIONS FOR DIZZINESS) Other/Comment: GENERALIZED TREMORS NO DX - HEENT Hx HEENT Problems: Yes (DECREASED IN HEARING-NO HEARING AIDS) Hx Cataracts: Yes (BILAT. NO SURGERY) - RENAL Hx Chronic Kidney Disease: No - ENDOCRINE/METABOLIC Hx Endocrine Disorders: No - MUSCULOSKELETAL/RHEUMATOLOGICAL Hx Arthritis: Yes - GASTROINTESTINAL Hx Gastrointestinal Disorders: No - GENITOURINARY/GYNECOLOGICAL Hx Genitourinary Disorders: No - PSYCHIATRIC Hx Anxiety: Yes - SURGICAL HISTORY Hx Surgeries: Yes Hx Angioplasty: Yes (X 8- 10 YEARS AGO) Hx Cardiac Catheterization: Yes Hx Orthopedic Surgery: Yes (right shoulder) Other/Comment: Rt. Knee Arthroplasty,Total Knee Replacement.03/20/18 - ANESTHESIA Hx Anesthesia: Yes Hx Anesthesia Reactions: No Hx Malignant Hyperthermia: No Meds Allergies/Adverse Reactions: Allergies Allergy/AdvReac Type Severity Reaction Status Date / Time No Known Allergies Allergy Verified 03/23/18 18:43 - Medications Medications: Current Medications Sodium Chloride (Sodium Chloride 0.9%) 1,000 mls @ 150 mls/hr IV .Q6H40M STA Stop: 03/30/18 16:47 Last Admin: 03/30/18 10:18 Dose: 150 mls/hr Physical Exam - Constitutional Appears: Non-toxic, No Acute Distress - Head Exam Head Exam: ATRAUMATIC, NORMOCEPHALIC - Eye Exam Eye Exam: EOMI, PERRL - Respiratory Exam Respiratory Exam: NORMAL BREATHING PATTERN. absent: Respiratory Distress - GI/Abdominal Exam GI & Abdominal Exam: Distended, Guarding, Soft, Tenderness. absent: Firm, Rebound, Rigid - Extremities Exam Extremities exam: Positive for: normal capillary refill, normal inspection - Back Exam Back exam: absent: CVA tenderness (L), CVA tenderness (R) - Neurological Exam Neurological exam: Alert, Oriented x3 - Psychiatric Exam Psychiatric exam: Normal Affect, Normal Mood - Skin Skin Exam: Intact, Normal Color, Warm Results - Vital Signs Recent Vital Signs: Last Vital Signs Temp 99.3 F 03/30/18 10:17 Pulse 80 03/30/18 10:17 Resp 22 03/30/18 10:17 BP 120/70 03/30/18 10:17 Pulse Ox 95 03/30/18 10:17 - Labs Result Diagrams: 03/30/18 10:40 03/30/18 10:40 Labs: Laboratory Results - last 24 hr 03/30/18 03/30/18 03/30/18 09:55 10:06 10:40 WBC 11.7 H RBC 3.63 L Hgb 11.6 L Hct 34.8 L MCV 95.9 H MCH 31.9 H MCHC 33.3 RDW 14.7 H Plt Count 351 MPV 8.1 Neut % (Auto) 90.0 H Lymph % (Auto) 4.6 L [place] % (Auto) 5.1 Eos % (Auto) 0.2 Baso % (Auto) 0.1 Neut # (Auto) 10.6 H Lymph # (Auto) 0.5 L [place] # (Auto) 0.6 Eos # (Auto) 0.0 Baso # (Auto) 0.0 pO2 38 VBG pH 7.34 VBG pCO2 43 VBG HCO3 22.2 VBG Total CO2 24.5 VBG O2 Sat (Calc) 73.8 H VBG Base Excess -2.6 L VBG Potassium 4.0 Sodium 134.0 Chloride 102.0 Glucose 118 H Lactate 2.0 FiO2 21.0 Potassium Carbon Dioxide Anion Gap BUN Creatinine Est GFR ( Amer) Est GFR (Non-Af Amer) POC Glucose (mg/dL) 111 H Random Glucose Calcium Total Bilirubin AST ALT Alkaline Phosphatase Total Protein Albumin Globulin Albumin/Globulin Ratio Venous Blood Potassium 4.0 03/30/18 10:40 WBC RBC Hgb Hct MCV MCH MCHC RDW Plt Count MPV Neut % (Auto) Lymph % (Auto) [place] % (Auto) Eos % (Auto) Baso % (Auto) Neut # (Auto) Lymph # (Auto) [place] # (Auto) Eos # (Auto) Baso # (Auto) pO2 VBG pH VBG pCO2 VBG HCO3 VBG Total CO2 VBG O2 Sat (Calc) VBG Base Excess VBG Potassium Sodium 141 Chloride 104 Glucose Lactate FiO2 Potassium 4.1 Carbon Dioxide 21 L Anion Gap 20 BUN 16 Creatinine 1.1 Est GFR ( Amer) > 60 Est GFR (Non-Af Amer) > 60 POC Glucose (mg/dL) Random Glucose 119 H Calcium 8.4 Total Bilirubin 1.2 AST 81 H ALT 77 H D Alkaline Phosphatase 78 Total Protein 6.7 Albumin 3.4 L Globulin 3.3 Albumin/Globulin Ratio 1.0 Venous Blood Potassium Assessment & Plan - Assessment and Plan (Free Text) Assessment: 77M with post-op Ileus and nausea, vomiting, distended stomach Plan: Keep NPO IVF F/u CDiff Serial abd exams Correct electrolyte imbalances PRN Continue GI team bowel regimen Ambulate as able CT scan 03/29/18: Mild diffuse dilatation of small bowel loops and without evidence for obstruction. Mild sigmoid diverticulosis. Mild prostate enlargement F/u recs per Dr. Walden - Date & Time Date: 03/30/18 Time: 11:13 <Jenna Solis - Last Filed: 03/30/18 11:38> History of Present Illness - History of Present Illness History of Present Illness: Sx started 1 week ago distended abdomen and obstipation and progressively gotten worse. Pt was given bowel regimen. Started to have loose stool. Abd pain improved but pt was continued to be distended. Overnight pt had multiple episodes of emesis and diarrhea. Abd Xray was taken and showed post op ileus. CT was taken yesterday and showed dilated small bowel w/o obstruction. NGT is placed in ED Meds - Medications Medications: Current Medications Sodium Chloride (Sodium Chloride 0.9%) 1,000 mls @ 150 mls/hr IV .Q6H40M STA Stop: 03/30/18 16:47 Last Admin: 03/30/18 10:18 Dose: 150 mls/hr Physical Exam - GI/Abdominal Exam GI & Abdominal Exam: absent: Hernia Results - Vital Signs Recent Vital Signs: Last Vital Signs Temp 99.3 F 03/30/18 10:17 Pulse 80 03/30/18 10:17 Resp 22 03/30/18 10:17 BP 120/70 03/30/18 10:17 Pulse Ox 95 03/30/18 10:17 - Labs Result Diagrams: 03/30/18 10:40 03/30/18 10:40 Labs: Laboratory Results - last 24 hr 03/30/18 03/30/18 03/30/18 09:55 10:06 10:40 WBC 11.7 H RBC 3.63 L Hgb 11.6 L Hct 34.8 L MCV 95.9 H MCH 31.9 H MCHC 33.3 RDW 14.7 H Plt Count 351 MPV 8.1 Neut % (Auto) 90.0 H Lymph % (Auto) 4.6 L [place] % (Auto) 5.1 Eos % (Auto) 0.2 Baso % (Auto) 0.1 Neut # (Auto) 10.6 H Lymph # (Auto) 0.5 L [place] # (Auto) 0.6 Eos # (Auto) 0.0 Baso # (Auto) 0.0 pO2 38 VBG pH 7.34 VBG pCO2 43 VBG HCO3 22.2 VBG Total CO2 24.5 VBG O2 Sat (Calc) 73.8 H VBG Base Excess -2.6 L VBG Potassium 4.0 Sodium 134.0 Chloride 102.0 Glucose 118 H Lactate 2.0 FiO2 21.0 Potassium Carbon Dioxide Anion Gap BUN Creatinine Est GFR ( Amer) Est GFR (Non-Af Amer) POC Glucose (mg/dL) 111 H Random Glucose Calcium Total Bilirubin AST ALT Alkaline Phosphatase Total Protein Albumin Globulin Albumin/Globulin Ratio Venous Blood Potassium 4.0 03/30/18 10:40 WBC RBC Hgb Hct MCV MCH MCHC RDW Plt Count MPV Neut % (Auto) Lymph % (Auto) [place] % (Auto) Eos % (Auto) Baso % (Auto) Neut # (Auto) Lymph # (Auto) [place] # (Auto) Eos # (Auto) Baso # (Auto) pO2 VBG pH VBG pCO2 VBG HCO3 VBG Total CO2 VBG O2 Sat (Calc) VBG Base Excess VBG Potassium Sodium 141 Chloride 104 Glucose Lactate FiO2 Potassium 4.1 Carbon Dioxide 21 L Anion Gap 20 BUN 16 Creatinine 1.1 Est GFR ( Amer) > 60 Est GFR (Non-Af Amer) > 60 POC Glucose (mg/dL) Random Glucose 119 H Calcium 8.4 Total Bilirubin 1.2 AST 81 H ALT 77 H D Alkaline Phosphatase 78 Total Protein 6.7 Albumin 3.4 L Globulin 3.3 Albumin/Globulin Ratio 1.0 Venous Blood Potassium Assessment & Plan - Assessment and Plan (Free Text) Plan: -NGT output -strict intake and output -Serial abd exam
[2018-03-30 11:36] VITALS: BMI 23.8
--- NOTE | 2018-03-30 11:50 | CP.PCM.PN ---
Subjective - Date & Time of Evaluation Date of Evaluation: 03/30/18 Time of Evaluation: 11:00 - Subjective Subjective: Pt seen and examined initially in TCU this AM prior to being transferred to the ER. Agree with previous resident's consult. Pt's main concern today is the right knee pain from his surgery on 03/20/18. Pt reports his abdomen size is normal to him now however he feels generalized body aches and weak overall. As per RN on TCU pt had 6-7 episodes of emesis and "constant diarrrhea". Stool sent for Cdiff analysis. Labs noted PE: Gen: Pt laying in bed in NAD Cardio: RRR S1S2 Lungs: CTA bilaterally Abd: Soft NTND Extremities: (+) right knee immobilizer in place, when opened, bandage C/D/I. ( -) streaking up the leg, (+) area of irritation at the top of immobilizer, (-) calf pain or swelling. A/P Post Op Ileus NGT inserted by me without difficulty with 150ml yellow output Keep NPO Monitor labs F/U c diff results, Isolation until resulted. Surgery will follow Objective - Vital Signs/Intake and Output Vital Signs (last 24 hours): Temp Pulse Resp BP Pulse Ox 99.3 F 80 22 120/70 95 03/30/18 10:17 03/30/18 10:17 03/30/18 10:17 03/30/18 10:17 03/30/18 10:17 - Medications Medications: Current Medications Sodium Chloride (Sodium Chloride 0.9%) 1,000 mls @ 150 mls/hr IV .Q6H40M STA Stop: 03/30/18 16:47 Last Admin: 03/30/18 10:18 Dose: 150 mls/hr - Labs Labs: 03/30/18 10:40 03/30/18 10:40
--- NOTE | 2018-03-30 11:53 | US ---
PROCEDURE: Right lower extremity venous duplex Doppler. HISTORY: s/p knee replacement COMPARISON: None available. TECHNIQUE: Common femoral, superficial femoral, popliteal and posterior tibial veins were evaluated. Flow was assessed with color Doppler, compressibility, assessment of phasic flow and augmentation response. FINDINGS: COMMON FEMORAL VEIN: Normal direction of flow, compressibility and augmentation response. SUPERFICIAL FEMORAL VEIN: Normal direction of flow, compressibility and augmentation response. POPLITEAL VEIN: Normal direction of flow, compressibility and augmentation response. POSTERIOR TIBIAL VEIN: Normal direction of flow, compressibility and augmentation response. OTHER FINDINGS: None. IMPRESSION: No evidence of deep venous thrombosis in the right lower extremity.
[2018-03-30 12:14] LABS: EOSINOPHIL 1 % (0-7); LYMPHOCYTE 4 % (20-50); MONOCYTE 5 % (0-10); NEUTROPHIL 90 % (42-75); PLATELET ESTIMATE NORMAL (NORMAL); TOTAL CELLS COUNTED 100
[2018-03-30 12:15] LABS: ANISOCYTOSIS SLIGHT; LARGE PLATELETS PRESENT; MICROCYTOSIS SLIGHT; OVALOCYTES SLIGHT
[2018-03-30] MEDS ORDERED: Ergocalciferol 50,000 Intl Units Cap PO SCH (14:00)
--- NOTE | 2018-03-30 14:10 | CP.PCM.HP ---
History of Present Illness - History of Present Illness History of Present Illness: 77 yo male with history of CAD, HTN and OA had right TKR at [facility] on after failing conservative management. Stark bloated 1st day postop followed with abdominal distention associated with nausea and no BM but was able to pass flatus. Last BM was before surgery. Patient was transferred to TCU on 03/23/2018 for therapy. He continued to have abdominal distention with abdominal discomfort and nausea. Obstructive series showed ileus. GI and surgery were consulted and patient was put on laxative and NPO. He started passing out brownish liquid stools but continued to have abdominal distention and nausea. CT scan of abdomen with oral/IV contrast showed mild diffused dilatation of small bowel and colon without evidence of obstruction. Patient again was able to pass large amount of brownish liquid stools and had relief from abdominal discomfort. He was restarted on clear liquid diet and tolerated it. This morning patient started vomiting. He was sent to the ER and was admitted to telemetry. Present on Admission - Present on Admission Any Indicators Present on Admission: No History of DVT/PE: No History of Uncontrolled Diabetes: No Urinary Catheter: No Decubitus Ulcer Present: No Review of Systems - Review of Systems All systems: reviewed and no additional remarkable complaints except (aside from those mentioned above, 12 point system review were negative by me) Past Patient History - Infectious Disease Hx of Infectious Diseases: None - Past Medical History & Family History Past Medical History?: Yes - Past Social History Smoking Status: Never Smoked - CARDIAC Hx Hypercholesterolemia: Yes Hx Hypertension: Yes - PULMONARY Hx Respiratory Disorders: No - NEUROLOGICAL Hx Neurological Disorder: Yes Hx Dizziness: Yes (NO MEDICATIONS FOR DIZZINESS) Other/Comment: GENERALIZED TREMORS NO DX - HEENT Hx HEENT Problems: Yes (DECREASED IN HEARING-NO HEARING AIDS) Hx Cataracts: Yes (BILAT. NO SURGERY) - RENAL Hx Chronic Kidney Disease: No - ENDOCRINE/METABOLIC Hx Endocrine Disorders: No - MUSCULOSKELETAL/RHEUMATOLOGICAL Hx Arthritis: Yes - GASTROINTESTINAL Hx Gastrointestinal Disorders: No - GENITOURINARY/GYNECOLOGICAL Hx Genitourinary Disorders: No - PSYCHIATRIC Hx Anxiety: Yes - SURGICAL HISTORY Hx Surgeries: Yes Hx Angioplasty: Yes (X 8- 10 YEARS AGO) Hx Cardiac Catheterization: Yes Hx Orthopedic Surgery: Yes (right shoulder) Other/Comment: Rt. Knee Arthroplasty,Total Knee Replacement.03/20/18 - ANESTHESIA Hx Anesthesia: Yes Hx Anesthesia Reactions: No Hx Malignant Hyperthermia: No Meds Allergies/Adverse Reactions: Allergies Allergy/AdvReac Type Severity Reaction Status Date / Time No Known Allergies Allergy Verified 03/23/18 18:43 Physical Exam - Constitutional Appears: No Acute Distress - Head Exam Head Exam: ATRAUMATIC - Eye Exam Eye Exam: absent: Scleral icterus - ENT Exam ENT Exam: Mucous Membranes Moist - Respiratory Exam Respiratory Exam: absent: Rales, Rhonchi, Wheezes, Respiratory Distress - Cardiovascular Exam Cardiovascular Exam: REGULAR RHYTHM, +S1, +S2 - GI/Abdominal Exam GI & Abdominal Exam: Distended, Firm. absent: Tenderness - Rectal Exam Rectal Exam: Deferred - Neurological Exam Neurological exam: Alert, Oriented x3 - Psychiatric Exam Psychiatric exam: Normal Affect - Skin Skin Exam: Dry, Intact Results - Vital Signs Recent Vital Signs: Last Vital Signs Temp 98.6 F 03/30/18 13:35 Pulse 101 H 03/30/18 13:35 Resp 20 03/30/18 13:35 BP 138/79 03/30/18 13:35 Pulse Ox 96 03/30/18 13:35 - Labs Result Diagrams: 03/30/18 10:40 03/30/18 10:40 Labs: Laboratory Results - last 24 hr 03/30/18 03/30/18 03/30/18 09:55 10:06 10:40 WBC 11.7 H RBC 3.63 L Hgb 11.6 L Hct 34.8 L MCV 95.9 H MCH 31.9 H MCHC 33.3 RDW 14.7 H Plt Count 351 MPV 8.1 Neut % (Auto) 90.0 H Lymph % (Auto) 4.6 L [place] % (Auto) 5.1 Eos % (Auto) 0.2 Baso % (Auto) 0.1 Neut # (Auto) 10.6 H Lymph # (Auto) 0.5 L [place] # (Auto) 0.6 Eos # (Auto) 0.0 Baso # (Auto) 0.0 Neutrophils % (Manual) 90 H Lymphocytes % (Manual) 4 L Monocytes % (Manual) 5 Eosinophils % (Manual) 1 Platelet Estimate Normal Large Platelets Present Anisocytosis (manual) Slight Microcytosis (manual) Slight Macrocytosis (manual) Slight Ovalocytes Slight pO2 38 VBG pH 7.34 VBG pCO2 43 VBG HCO3 22.2 VBG Total CO2 24.5 VBG O2 Sat (Calc) 73.8 H VBG Base Excess -2.6 L VBG Potassium 4.0 Sodium 134.0 Chloride 102.0 Glucose 118 H Lactate 2.0 FiO2 21.0 Potassium Carbon Dioxide Anion Gap BUN Creatinine Est GFR ( Amer) Est GFR (Non-Af Amer) POC Glucose (mg/dL) 111 H Random Glucose Calcium Total Bilirubin AST ALT Alkaline Phosphatase Total Protein Albumin Globulin Albumin/Globulin Ratio Venous Blood Potassium 4.0 03/30/18 10:40 WBC RBC Hgb Hct MCV MCH MCHC RDW Plt Count MPV Neut % (Auto) Lymph % (Auto) [place] % (Auto) Eos % (Auto) Baso % (Auto) Neut # (Auto) Lymph # (Auto) [place] # (Auto) Eos # (Auto) Baso # (Auto) Neutrophils % (Manual) Lymphocytes % (Manual) Monocytes % (Manual) Eosinophils % (Manual) Platelet Estimate Large Platelets Anisocytosis (manual) Microcytosis (manual) Macrocytosis (manual) Ovalocytes pO2 VBG pH VBG pCO2 VBG HCO3 VBG Total CO2 VBG O2 Sat (Calc) VBG Base Excess VBG Potassium Sodium 141 Chloride 104 Glucose Lactate FiO2 Potassium 4.1 Carbon Dioxide 21 L Anion Gap 20 BUN 16 Creatinine 1.1 Est GFR ( Amer) > 60 Est GFR (Non-Af Amer) > 60 POC Glucose (mg/dL) Random Glucose 119 H Calcium 8.4 Total Bilirubin 1.2 AST 81 H ALT 77 H D Alkaline Phosphatase 78 Total Protein 6.7 Albumin 3.4 L Globulin 3.3 Albumin/Globulin Ratio 1.0 Venous Blood Potassium Assessment & Plan - Assessment and Plan (Free Text) Assessment: 77 yo male with history of CAD, HTN and OA had right TKR at [facility] on after failing conservative management. Stark bloated 1st day postop followed with abdominal distention associated with nausea and no BM but was able to pass flatus. Last BM was before surgery. Patient was transferred to TCU on 03/23/2018 for therapy. He continued to have abdominal distention with abdominal discomfort and nausea. Obstructive series showed ileus. GI and surgery were consulted and patient was put on laxative and NPO. He started passing out brownish liquid stools but continued to have abdominal distention and nausea. CT scan of abdomen with oral/IV contrast showed mild diffused dilatation of small bowel and colon without evidence of obstruction. Patient again was able to pass large amount of brownish liquid stools and had relief from abdominal discomfort. He was restarted on clear liquid diet and tolerated it. This morning patient started vomiting. He was sent to the ER for admission to medical floor. 1. Post-op Ileus Obstructive series showed bowel ileus had large loose bowel movement and was able to pass gas but continued to have abdominal distention associated with nausea and vomiting CT scan of abdomen with PO/IV contrast: mild diffused dilatation of small bowel and colon without evidence of obstruction maintain NGT 2. Osteoarthritis s/p right TKR Pain management with Toradol continue OT/PT 3. HTN BP stable continue Lopressor/ Losartan/Amlodipine 4. CAD continue ASA and Lipitor 5. DVT prophylaxis continue Lovenox
--- NOTE | 2018-03-30 14:16 | PQF GENQUE ---
This form is a permanent part of the medical record 03/30/18 Dr. Walden, Please clarify the term 'Post Operative' Condition is a complication of surgery Condition occurred in the post operative period, cause documented (please specify cause) Condition occurred in the post operative period, cause clinically unable to be determined Condition incidental to surgery Other intended meaning (please specify) Clinically unable to determine Unknown Documentation of POSTOP ILEUS. NGT inserted Patient had a TKR on 03/20/18 at [facility] and transferred to Acute Rehab on 03/23/18. Continued to have abdominal pain, distention and nausea and seen by GI and Surgery with treatment. This morning started vomiting and transferred to the ER. Clarification of your documentation is requested to better reflect the severity of illness and intensity of treatment of your patient. Indicators present PHYSICIAN'S RESPONSE Based on your medical judgment of the clinical indicators outlined above please clarify the following: [] Practitioner response [] If unable to determine, please check the box, sign and date. Present On Admission (POA) Indicator: [] Present at the time of admission [] Not present at the time of admission [] Clinically Undetermined In responding to this query, please exercise your independent professional judgment. The fact that a question is asked does not imply that any particular answer is desired or expected. Thank you for your clarification on this documentation. If you have any questions please call:ext [phone] * Thank you, Aye Elizabeth RN [facility]
[2018-03-30] MEDS: Tiotropium 18 mcg Cap For Inhalation INH SCH (17:40)
[2018-03-30] MEDS: Albuterol-Ipratrop 3 mg / 0.5 (3 ml) UD INH SCH (19:20)
[2018-03-31] MEDS: Albuterol-Ipratrop 3 mg / 0.5 (3 ml) UD INH SCH ×4 (01:01→19:00)
[2018-03-31 05:11] LABS: BASO % 0.2 % (0.0-2.0); EOS % 0.3 % (0.0-4.0); HEMOGLOBIN 10.9 g/dL (12.0-18.0); LYMPH # 1.3 K/uL (1.0-4.3); LYMPH % 15.4 % (20.0-40.0); MEAN CELL VOLUME 96.6 fl (80.0-94.0); MEAN CORPUSCULAR HEMOGLOBIN 32.2 pg (27.0-31.0); MEAN CORPUSCULAR HGB CONC 33.3 g/dL (33.0-37.0); MEAN PLATELET VOLUME 8.4 fl (7.2-11.7); MONO # 0.6 K/uL (0.0-0.8); MONO % 7.4 % (0.0-10.0); NEUT # 6.3 K/uL (1.8-7.0); NEUT % 76.7 % (50.0-75.0); RBC 3.39 Mil/uL (4.40-5.90); RED CELL DISTRIBUTION WIDTH 14.6 % (11.5-14.5); WHITE BLOOD COUNT 8.2 K/uL (4.8-10.8)
[2018-03-31 05:22] LABS: BLOOD UREA NITROGEN 16 mg/dl (9-20); CALCIUM 7.8 mg/dL (8.4-10.2); GFR AFRICAN-AMERICAN > 60; GFR NON-AFRICAN AMERICAN > 60
--- NOTE | 2018-03-31 07:35 | CP.PCM.PN ---
<Maribeth Rebolledo - Last Filed: 03/31/18 08:37> Subjective - Date & Time of Evaluation Date of Evaluation: 03/31/18 Time of Evaluation: 07:30 - Subjective Subjective: GI Fellow PGY4 Progress Note Pt seen and evaluated at bedside, pt doing well with decreased abdominal pain. Pt with NGT and 600 cc output since placement. Per nursing pt had one loose BM last night, passing flatus. ROS: A 12pt ROS was negative except as above. Objective - Vital Signs/Intake and Output Vital Signs (last 24 hours): Temp Pulse Resp BP Pulse Ox 98.6 F 92 H 18 161/75 H 94 L 03/31/18 05:30 03/31/18 05:30 03/31/18 05:30 03/31/18 05:30 03/31/18 05:30 - Medications Medications: Current Medications Albuterol/Ipratropium (Duoneb 3 Mg/0.5 Mg (3 Ml) Ud) 3 ml INH RQ6 [facility] Last Admin: 03/31/18 01:01 Dose: 3 ml Amlodipine Besylate (Norvasc) 5 mg PO DAILY [facility] Aspirin (Ecotrin) 81 mg PO DAILY [facility] Atorvastatin Calcium (Lipitor) 20 mg PO HS [facility] Last Admin: 03/30/18 21:58 Dose: 20 mg Calcium Carbonate (Oscal) 500 mg PO DAILY [facility] Enoxaparin Sodium (Lovenox) 40 mg SC DAILY [facility] PRN Reason: Protocol Ergocalciferol (Drisdol 50,000 Intl Units Cap) 1 cap PO Q7D [facility] Last Admin: 03/30/18 17:39 Dose: 1 cap Ketorolac Tromethamine (Toradol) 15 mg IVP Q6 PRN PRN Reason: Pain, moderate (4-7) Ketorolac Tromethamine (Toradol) 30 mg IVP Q6 PRN PRN Reason: Pain, severe (8-10) Losartan Potassium (Cozaar) 100 mg PO DAILY [facility] Metoclopramide HCl (Reglan) 10 mg IVP Q6 PRN PRN Reason: Nausea/Vomiting Metoprolol Tartrate (Lopressor) 50 mg PO BID [facility] Last Admin: 03/30/18 17:42 Dose: 50 mg Pantoprazole Sodium (Protonix Inj) 40 mg IVP DAILY [facility] Pregabalin (Lyrica) 50 mg PO BID [facility] Last Admin: 03/30/18 17:43 Dose: 50 mg Primidone (Mysoline) 50 mg PO BID [facility] Last Admin: 03/30/18 17:40 Dose: 50 mg Tiotropium [place] (Spiriva) 18 mcg INH DAILY [facility] Last Admin: 03/30/18 17:40 Dose: 18 mcg Trazodone HCl (Desyrel) 100 mg PO HS [facility] Last Admin: 03/30/18 21:57 Dose: 100 mg - Labs Labs: 03/31/18 04:25 03/31/18 04:25 - Constitutional Appears: Non-toxic, No Acute Distress - Head Exam Head Exam: ATRAUMATIC, NORMAL INSPECTION, NORMOCEPHALIC - Eye Exam Eye Exam: EOMI, Normal appearance, PERRL - ENT Exam ENT Exam: Mucous Membranes Dry Additional comments: NGT with bilious outpt - Neck Exam Neck Exam: Full ROM - Respiratory Exam Respiratory Exam: Clear to Ausculation Bilateral, NORMAL BREATHING PATTERN - Cardiovascular Exam Cardiovascular Exam: RRR, +S1, +S2 - GI/Abdominal Exam GI & Abdominal Exam: Soft, Normal Bowel Sounds. absent: Tenderness, Organomegaly Additional comments: tympanic, mild distention, soft, nontender - Rectal Exam Rectal Exam: Deferred - Extremities Exam Extremities Exam: Full ROM, Normal Inspection - Back Exam Back Exam: NORMAL INSPECTION - Neurological Exam Neurological Exam: Alert, Awake, Oriented x3 - Psychiatric Exam Psychiatric exam: Normal Affect, Normal Mood - Skin Skin Exam: Dry, Intact, Normal Color, Warm Assessment and Plan - Assessment and Plan (Free Text) Assessment: This is a 77yo male with PMHx significant for CAD, HTN, OA who was initially admitted to TCU following right total knee replacement, complaining of abdominal pain, distention and N/V. 1. Post-operative ileus 2. S/P total right knee replacement Plan: -Continue supportive care with pain control and anti-emetics -CT A/P without any overt obstruction, noted dilated loops of small bowel and colon -NGT decompression with 600cc of bilious output -NPO -Surgery following, further management of NGT and diet from surgical team -Bowel regimen with Miralax bid -PPI daily -Out of bed to chair, encourage PTOT -Pt with Colonoscopy in 2013 with IH, no further screening needed -Further medical management by primary team -Please call with any questions or concerns <Durga Barrios - Last Filed: 03/31/18 08:42> Objective - Vital Signs/Intake and Output Vital Signs (last 24 hours): Temp Pulse Resp BP Pulse Ox 99.0 F 102 H 20 140/88 95 03/31/18 08:07 03/31/18 08:07 03/31/18 08:07 03/31/18 08:07 03/31/18 08:07 - Medications Medications: Current Medications Albuterol/Ipratropium (Duoneb 3 Mg/0.5 Mg (3 Ml) Ud) 3 ml INH RQ6 [facility] Last Admin: 03/31/18 07:34 Dose: 3 ml Amlodipine Besylate (Norvasc) 5 mg PO DAILY [facility] Aspirin (Ecotrin) 81 mg PO DAILY [facility] Atorvastatin Calcium (Lipitor) 20 mg PO HS [facility] Last Admin: 03/30/18 21:58 Dose: 20 mg Calcium Carbonate (Oscal) 500 mg PO DAILY [facility] Enoxaparin Sodium (Lovenox) 40 mg SC DAILY [facility] PRN Reason: Protocol Ergocalciferol (Drisdol 50,000 Intl Units Cap) 1 cap PO Q7D [facility] Last Admin: 03/30/18 17:39 Dose: 1 cap Ketorolac Tromethamine (Toradol) 15 mg IVP Q6 PRN PRN Reason: Pain, moderate (4-7) Ketorolac Tromethamine (Toradol) 30 mg IVP Q6 PRN PRN Reason: Pain, severe (8-10) Losartan Potassium (Cozaar) 100 mg PO DAILY [facility] Metoclopramide HCl (Reglan) 10 mg IVP Q6 PRN PRN Reason: Nausea/Vomiting Metoprolol Tartrate (Lopressor) 50 mg PO BID [facility] Last Admin: 03/30/18 17:42 Dose: 50 mg Pantoprazole Sodium (Protonix Inj) 40 mg IVP DAILY [facility] Pregabalin (Lyrica) 50 mg PO BID [facility] Last Admin: 03/30/18 17:43 Dose: 50 mg Primidone (Mysoline) 50 mg PO BID [facility] Last Admin: 03/30/18 17:40 Dose: 50 mg Tiotropium [place] (Spiriva) 18 mcg INH DAILY [facility] Last Admin: 03/30/18 17:40 Dose: 18 mcg Trazodone HCl (Desyrel) 100 mg PO HS [facility] Last Admin: 03/30/18 21:57 Dose: 100 mg - Labs Labs: 03/31/18 04:25 03/31/18 04:25 Attending/Attestation - Attestation I have personally seen and examined this patient.: Yes I have fully participated in the care of the patient.: Yes I have reviewed all pertinent clinical information, including history, physical exam and plan: Yes Notes (Text): 03/31/18 08:39 I have seen and examined patient with GI fellow. No acute events overnight, approximately 75cc bilious tinge output via NGT noted over prior nursing shift. He had one liquid bowel movement and denies abdominal pain, fever/chills. He is asking for NGT removal and diet advancement. Review of vitals from today shows elevated BP. CAD HTN Abdominal pain, likely secondary to post operative ileus - From GI perspective can likely remove NGT and begin patient on clear liquid diet with continued observation - Follow up surgical recommendations - Continue with PPI therapy - Once NGT is removed, would begin bowel regimen with miralax to prevent constipation - OOB to chair as per orthopedic team
--- NOTE | 2018-03-31 08:35 | CP.PCM.PN ---
Subjective - Date & Time of Evaluation Date of Evaluation: 03/31/18 Time of Evaluation: 07:20 - Subjective Subjective: General Surgery Pt seen and examined. No acute events overnight. NGT output 675cc bilious since placement yesterday. +BM (diarrhea). No nausea. No abdominal pain. Objective - Vital Signs/Intake and Output Vital Signs (last 24 hours): Temp Pulse Resp BP Pulse Ox 99.0 F 102 H 20 140/88 95 03/31/18 08:07 03/31/18 08:07 03/31/18 08:07 03/31/18 08:07 03/31/18 08:07 - Medications Medications: Current Medications Albuterol/Ipratropium (Duoneb 3 Mg/0.5 Mg (3 Ml) Ud) 3 ml INH RQ6 [facility] Last Admin: 03/31/18 07:34 Dose: 3 ml Amlodipine Besylate (Norvasc) 5 mg PO DAILY [facility] Aspirin (Ecotrin) 81 mg PO DAILY [facility] Atorvastatin Calcium (Lipitor) 20 mg PO HS [facility] Last Admin: 03/30/18 21:58 Dose: 20 mg Calcium Carbonate (Oscal) 500 mg PO DAILY [facility] Enoxaparin Sodium (Lovenox) 40 mg SC DAILY [facility] PRN Reason: Protocol Ergocalciferol (Drisdol 50,000 Intl Units Cap) 1 cap PO Q7D [facility] Last Admin: 03/30/18 17:39 Dose: 1 cap Ketorolac Tromethamine (Toradol) 15 mg IVP Q6 PRN PRN Reason: Pain, moderate (4-7) Ketorolac Tromethamine (Toradol) 30 mg IVP Q6 PRN PRN Reason: Pain, severe (8-10) Losartan Potassium (Cozaar) 100 mg PO DAILY [facility] Metoclopramide HCl (Reglan) 10 mg IVP Q6 PRN PRN Reason: Nausea/Vomiting Metoprolol Tartrate (Lopressor) 50 mg PO BID [facility] Last Admin: 03/30/18 17:42 Dose: 50 mg Pantoprazole Sodium (Protonix Inj) 40 mg IVP DAILY [facility] Pregabalin (Lyrica) 50 mg PO BID [facility] Last Admin: 03/30/18 17:43 Dose: 50 mg Primidone (Mysoline) 50 mg PO BID [facility] Last Admin: 03/30/18 17:40 Dose: 50 mg Tiotropium [place] (Spiriva) 18 mcg INH DAILY [facility] Last Admin: 03/30/18 17:40 Dose: 18 mcg Trazodone HCl (Desyrel) 100 mg PO HS [facility] Last Admin: 03/30/18 21:57 Dose: 100 mg - Labs Labs: 03/31/18 04:25 03/31/18 04:25 - Constitutional Appears: Non-toxic, No Acute Distress - Head Exam Head Exam: ATRAUMATIC, NORMOCEPHALIC - Eye Exam Eye Exam: EOMI. absent: Scleral icterus - Respiratory Exam Respiratory Exam: Respiratory Distress. absent: NORMAL BREATHING PATTERN - GI/Abdominal Exam GI & Abdominal Exam: Distended (moderate, improved since yesterday), Soft. absent: Firm, Guarding, Rigid, Tenderness Additional comments: + tympany - Neurological Exam Neurological Exam: Alert, Awake, Oriented x3 - Skin Skin Exam: Dry, Warm Assessment and Plan - Assessment and Plan (Free Text) Assessment: 77M with Post Op Ileus Plan: NGT with 675cc of bilious output since placement, possible removal later today vs tomorrow Keep NPO Monitor labs F/U c diff results Will D/W Dr. Ariel Hilliard PGY4
[2018-03-31] MEDS: Enoxaparin 40 mg Syringe SC SCH (09:58)
[2018-03-31] MEDS: POLYETHYLENE GLYCOL 3350 17 GM/Dose PACKET PO SCH ×2 (09:59→16:55)
[2018-03-31] MEDS: Tiotropium 18 mcg Cap For Inhalation INH SCH (10:00)
--- NOTE | 2018-03-31 11:46 | CP.PCM.PN ---
Subjective - Date & Time of Evaluation Date of Evaluation: 03/31/18 Time of Evaluation: 11:00 - Subjective Subjective: Pt is afebrile feels better today abdomen is less distended NGT in place - approx 650 ml overnight of bilious drainage no abd pain today no N/V had 2 loose BM today good urine output denies CP no SOB Objective - Vital Signs/Intake and Output Vital Signs (last 24 hours): Temp Pulse Resp BP Pulse Ox 99.0 F 98 H 20 140/88 95 03/31/18 08:07 03/31/18 10:00 03/31/18 08:07 03/31/18 10:00 03/31/18 08:07 - Medications Medications: Current Medications Albuterol/Ipratropium (Duoneb 3 Mg/0.5 Mg (3 Ml) Ud) 3 ml INH RQ6 [facility] Last Admin: 03/31/18 07:34 Dose: 3 ml Amlodipine Besylate (Norvasc) 5 mg PO DAILY [facility] Last Admin: 03/31/18 10:00 Dose: 5 mg Aspirin (Ecotrin) 81 mg PO DAILY [facility] Last Admin: 03/31/18 09:58 Dose: 81 mg Atorvastatin Calcium (Lipitor) 20 mg PO HS [facility] Last Admin: 03/30/18 21:58 Dose: 20 mg Calcium Carbonate (Oscal) 500 mg PO DAILY [facility] Last Admin: 03/31/18 09:57 Dose: 500 mg Enoxaparin Sodium (Lovenox) 40 mg SC DAILY [facility] PRN Reason: Protocol Last Admin: 03/31/18 09:58 Dose: 40 mg Ergocalciferol (Drisdol 50,000 Intl Units Cap) 1 cap PO Q7D [facility] Last Admin: 03/30/18 17:39 Dose: 1 cap Ketorolac Tromethamine (Toradol) 15 mg IVP Q6 PRN PRN Reason: Pain, moderate (4-7) Ketorolac Tromethamine (Toradol) 30 mg IVP Q6 PRN PRN Reason: Pain, severe (8-10) Losartan Potassium (Cozaar) 100 mg PO DAILY [facility] Last Admin: 03/31/18 09:58 Dose: 100 mg Metoclopramide HCl (Reglan) 10 mg IVP Q6 PRN PRN Reason: Nausea/Vomiting Metoprolol Tartrate (Lopressor) 50 mg PO BID [facility] Last Admin: 03/31/18 09:57 Dose: 50 mg Pantoprazole Sodium (Protonix Inj) 40 mg IVP DAILY [facility] Last Admin: 03/31/18 09:59 Dose: 40 mg Polyethylene Glycol (Miralax) 17 gm PO BID [facility] Last Admin: 03/31/18 09:59 Dose: 17 gm Pregabalin (Lyrica) 50 mg PO BID [facility] Last Admin: 03/31/18 09:58 Dose: 50 mg Primidone (Mysoline) 50 mg PO BID [facility] Last Admin: 03/31/18 09:57 Dose: 50 mg Tiotropium [place] (Spiriva) 18 mcg INH DAILY [facility] Last Admin: 03/31/18 10:00 Dose: 18 mcg Trazodone HCl (Desyrel) 100 mg PO HS [facility] Last Admin: 03/30/18 21:57 Dose: 100 mg - Labs Labs: 03/31/18 04:25 03/31/18 04:25 - Constitutional Appears: Non-toxic, No Acute Distress - Head Exam Head Exam: NORMAL INSPECTION - Eye Exam Eye Exam: EOMI, Normal appearance Pupil Exam: NORMAL ACCOMODATION - ENT Exam ENT Exam: Mucous Membranes Dry, Normal External Ear Exam - Neck Exam Neck Exam: Full ROM. absent: Meningismus - Respiratory Exam Respiratory Exam: NORMAL BREATHING PATTERN. absent: Respiratory Distress - Cardiovascular Exam Cardiovascular Exam: REGULAR RHYTHM, +S1, +S2 - GI/Abdominal Exam GI & Abdominal Exam: Distended, Soft, Normal Bowel Sounds ( ). absent: Tenderness - Extremities Exam Extremities Exam: Normal Capillary Refill. absent: Calf Tenderness, Tenderness Additional comments: right knee with immobilizer - Back Exam Back Exam: Full ROM. absent: CVA tenderness (L), CVA tenderness (R) - Neurological Exam Neurological Exam: Alert, Awake, CN II-XII Intact, Oriented x3 - Psychiatric Exam Psychiatric exam: Normal Affect, Normal Mood - Skin Skin Exam: Dry, Normal Color, Warm Assessment and Plan - Assessment and Plan (Free Text) Assessment: 77 yo male with history of CAD, HTN and OA had right TKR at [facility] on after failing conservative management. [place] bloated 1st day postop followed with abdominal distention associated with nausea . He had no BM but was able to pass flatus. Last BM was before surgery. Patient was transferred to TCU on 03/23/2018 for therapy. He continued to have abdominal distention with abdominal discomfort and nausea. Obstructive series showed ileus. GI and surgery were consulted and patient was put on laxative and NPO. He started passing out brownish liquid stools but continued to have abdominal distention and nausea. CT scan of abdomen with oral/IV contrast showed mild diffused dilatation of small bowel and colon without evidence of obstruction. He was restarted on clear liquid diet however , he started vomiting . He was sent to the ED for admission to medical floor. 1. Post-op Ileus Obstructive series showed bowel ileus CT scan of abdomen with PO/IV contrast: mild diffused dilatation of small bowel and colon without evidence of obstruction NGT was inserted - pt's abd distention and pain improved. Vomiting resolved approx 650 ml of bilious drainage since NGT placed yesterday + BM and flatus Surgery consulted Dr Ester George d/c NGT today and rec to start Liquid diet GI consulted Stool C diff : negative Plan to d/c pt back to TCU if he tolerates PO diet 2. Primary Osteoarthritis s/p right TKR Pain management with Toradol continue OT/PT DVT proph 3. HTN BP stable continue Lopressor/ Losartan/Amlodipine 4. CAD , stable continue ASA and Lipitor 5. DVT prophylaxis continue Lovenox
[2018-03-31] MEDS ORDERED: Potassium Chloride 20 mEq ER Tab PO ONE (13:55)
[2018-04-01] MEDS: Albuterol-Ipratrop 3 mg / 0.5 (3 ml) UD INH SCH ×3 (01:03→13:33)
--- NOTE | 2018-04-01 07:36 | CP.PCM.PN ---
<Maribeth Rebolledo - Last Filed: 04/01/18 08:59> Subjective - Date & Time of Evaluation Date of Evaluation: 04/01/18 Time of Evaluation: 07:30 - Subjective Subjective: GI Fellow PGY4 Progress Note Pt seen and evaluated at bedside, pt doing well with decreased abdominal pain. Pt with NGT removed yesterday and tolerating clear liquid diet. Per nursing, pt ambulating with walker yesterday and out of bed to chair. Pt had one loose BM this morning, passing flatus. ROS: A 12pt ROS was negative except as above. Objective - Vital Signs/Intake and Output Vital Signs (last 24 hours): Temp Pulse Resp BP Pulse Ox 98 F 81 18 136/77 96 04/01/18 05:00 04/01/18 05:00 04/01/18 05:00 04/01/18 05:00 04/01/18 05:00 - Medications Medications: Current Medications Albuterol/Ipratropium (Duoneb 3 Mg/0.5 Mg (3 Ml) Ud) 3 ml INH RQ6 [facility] Last Admin: 04/01/18 01:03 Dose: 3 ml Amlodipine Besylate (Norvasc) 5 mg PO DAILY [facility] Last Admin: 03/31/18 10:00 Dose: 5 mg Aspirin (Ecotrin) 81 mg PO DAILY [facility] Last Admin: 03/31/18 09:58 Dose: 81 mg Atorvastatin Calcium (Lipitor) 20 mg PO HS [facility] Last Admin: 03/31/18 22:40 Dose: 20 mg Calcium Carbonate (Oscal) 500 mg PO DAILY [facility] Last Admin: 03/31/18 09:57 Dose: 500 mg Enoxaparin Sodium (Lovenox) 40 mg SC DAILY [facility] PRN Reason: Protocol Last Admin: 03/31/18 09:58 Dose: 40 mg Ergocalciferol (Drisdol 50,000 Intl Units Cap) 1 cap PO Q7D [facility] Last Admin: 03/30/18 17:39 Dose: 1 cap Ketorolac Tromethamine (Toradol) 15 mg IVP Q6 PRN PRN Reason: Pain, moderate (4-7) Ketorolac Tromethamine (Toradol) 30 mg IVP Q6 PRN PRN Reason: Pain, severe (8-10) Losartan Potassium (Cozaar) 100 mg PO DAILY [facility] Last Admin: 03/31/18 09:58 Dose: 100 mg Metoclopramide HCl (Reglan) 10 mg IVP Q6 PRN PRN Reason: Nausea/Vomiting Metoprolol Tartrate (Lopressor) 50 mg PO BID [facility] Last Admin: 03/31/18 16:54 Dose: 50 mg Pantoprazole Sodium (Protonix Inj) 40 mg IVP DAILY [facility] Last Admin: 03/31/18 09:59 Dose: 40 mg Polyethylene Glycol (Miralax) 17 gm PO BID [facility] Last Admin: 03/31/18 16:55 Dose: 17 gm Pregabalin (Lyrica) 50 mg PO BID [facility] Last Admin: 03/31/18 16:53 Dose: 50 mg Primidone (Mysoline) 50 mg PO BID [facility] Last Admin: 03/31/18 16:54 Dose: 50 mg Tiotropium [place] (Spiriva) 18 mcg INH DAILY [facility] Last Admin: 03/31/18 10:00 Dose: 18 mcg Trazodone HCl (Desyrel) 100 mg PO HS [facility] Last Admin: 03/31/18 22:40 Dose: 100 mg - Labs Labs: 03/31/18 04:25 03/31/18 04:25 - Constitutional Appears: Non-toxic, No Acute Distress - Head Exam Head Exam: ATRAUMATIC, NORMAL INSPECTION, NORMOCEPHALIC - Eye Exam Eye Exam: EOMI, Normal appearance, PERRL Pupil Exam: PERRL - ENT Exam ENT Exam: Mucous Membranes Moist - Neck Exam Neck Exam: Full ROM, Normal Inspection - Respiratory Exam Respiratory Exam: Clear to Ausculation Bilateral, NORMAL BREATHING PATTERN - Cardiovascular Exam Cardiovascular Exam: REGULAR RHYTHM, RRR, +S1, +S2 - GI/Abdominal Exam GI & Abdominal Exam: Distended, Soft, Normal Bowel Sounds. absent: Tenderness, Organomegaly - Rectal Exam Rectal Exam: Deferred - Extremities Exam Extremities Exam: Full ROM, Normal Inspection - Neurological Exam Neurological Exam: Alert, Awake, Oriented x3 - Psychiatric Exam Psychiatric exam: Normal Affect, Normal Mood - Skin Skin Exam: Dry, Intact, Normal Color, Warm Assessment and Plan - Assessment and Plan (Free Text) Assessment: This is a 77yo male with PMHx significant for CAD, HTN, OA who was initially admitted to TCU following right total knee replacement, complaining of abdominal pain, distention and N/V. 1. Post-operative ileus 2. S/P total right knee replacement Plan: -Continue supportive care with pain control and anti-emetics -Tolerating clear liquids, advance diet as tolerated per surgery -Bowel regimen with Miralax bid -PPI daily -Out of bed to chair, encourage PTOT -Pt with Colonoscopy in 2013 with IH, no further screening needed -Further medical management by primary team -Please call with any questions or concerns <Durga Barrios - Last Filed: 04/01/18 09:03> Objective - Vital Signs/Intake and Output Vital Signs (last 24 hours): Temp Pulse Resp BP Pulse Ox 97.8 F 70 20 154/71 H 97 04/01/18 08:17 04/01/18 08:17 04/01/18 08:17 04/01/18 08:17 04/01/18 08:17 - Medications Medications: Current Medications Albuterol/Ipratropium (Duoneb 3 Mg/0.5 Mg (3 Ml) Ud) 3 ml INH RQ6 [facility] Last Admin: 04/01/18 07:59 Dose: 3 ml Amlodipine Besylate (Norvasc) 5 mg PO DAILY [facility] Last Admin: 03/31/18 10:00 Dose: 5 mg Aspirin (Ecotrin) 81 mg PO DAILY [facility] Last Admin: 03/31/18 09:58 Dose: 81 mg Atorvastatin Calcium (Lipitor) 20 mg PO HS [facility] Last Admin: 03/31/18 22:40 Dose: 20 mg Calcium Carbonate (Oscal) 500 mg PO DAILY [facility] Last Admin: 03/31/18 09:57 Dose: 500 mg Enoxaparin Sodium (Lovenox) 40 mg SC DAILY [facility] PRN Reason: Protocol Last Admin: 03/31/18 09:58 Dose: 40 mg Ergocalciferol (Drisdol 50,000 Intl Units Cap) 1 cap PO Q7D [facility] Last Admin: 03/30/18 17:39 Dose: 1 cap Ketorolac Tromethamine (Toradol) 15 mg IVP Q6 PRN PRN Reason: Pain, moderate (4-7) Ketorolac Tromethamine (Toradol) 30 mg IVP Q6 PRN PRN Reason: Pain, severe (8-10) Losartan Potassium (Cozaar) 100 mg PO DAILY [facility] Last Admin: 03/31/18 09:58 Dose: 100 mg Metoclopramide HCl (Reglan) 10 mg IVP Q6 PRN PRN Reason: Nausea/Vomiting Metoprolol Tartrate (Lopressor) 50 mg PO BID [facility] Last Admin: 03/31/18 16:54 Dose: 50 mg Pantoprazole Sodium (Protonix Inj) 40 mg IVP DAILY [facility] Last Admin: 03/31/18 09:59 Dose: 40 mg Polyethylene Glycol (Miralax) 17 gm PO BID [facility] Last Admin: 03/31/18 16:55 Dose: 17 gm Pregabalin (Lyrica) 50 mg PO BID [facility] Last Admin: 03/31/18 16:53 Dose: 50 mg Primidone (Mysoline) 50 mg PO BID [facility] Last Admin: 03/31/18 16:54 Dose: 50 mg Tiotropium [place] (Spiriva) 18 mcg INH DAILY [facility] Last Admin: 03/31/18 10:00 Dose: 18 mcg Trazodone HCl (Desyrel) 100 mg PO HS [facility] Last Admin: 03/31/18 22:40 Dose: 100 mg - Labs Labs: 03/31/18 04:25 03/31/18 04:25 Attending/Attestation - Attestation I have personally seen and examined this patient.: Yes I have fully participated in the care of the patient.: Yes I have reviewed all pertinent clinical information, including history, physical exam and plan: Yes Notes (Text): 04/01/18 09:01 I have seen and examined patient with GI fellow. No acute events overnight, he is seen resting in bed comfortably. He denies abdominal pain, nausea, vomiting , fever/chills. Tolerating PO liquids without difficulty, had one loose bowel movement this morning. Review of vitals from today are normal. CAD HTN Abdominal pain, nausea, vomiting - resolved - likely secondary to post operative ileus - Advance diet as tolerated - Maintain bowel regimen to prevent constipation - Encourage OOB, ambulation - Further management as per surgical team. No additional planned GI intervention, will sign off case. Please reconsult as necessary, thank you.
[2018-04-01 08:18] VITALS: RESP 20
--- NOTE | 2018-04-01 09:05 | CP.PCM.PN ---
Subjective - Date & Time of Evaluation Date of Evaluation: 04/01/18 Time of Evaluation: 07:50 - Subjective Subjective: General Surgery Pt seen and examined. No acute events overnight. +BM (diarrhea). No nausea. No abdominal pain. Tolerating liquid diet. Ambulating with walker. Objective - Vital Signs/Intake and Output Vital Signs (last 24 hours): Temp Pulse Resp BP Pulse Ox 97.8 F 70 20 154/71 H 97 04/01/18 08:17 04/01/18 08:17 04/01/18 08:17 04/01/18 08:17 04/01/18 08:17 - Medications Medications: Current Medications Albuterol/Ipratropium (Duoneb 3 Mg/0.5 Mg (3 Ml) Ud) 3 ml INH RQ6 [facility] Last Admin: 04/01/18 07:59 Dose: 3 ml Amlodipine Besylate (Norvasc) 5 mg PO DAILY [facility] Last Admin: 03/31/18 10:00 Dose: 5 mg Aspirin (Ecotrin) 81 mg PO DAILY [facility] Last Admin: 03/31/18 09:58 Dose: 81 mg Atorvastatin Calcium (Lipitor) 20 mg PO HS [facility] Last Admin: 03/31/18 22:40 Dose: 20 mg Calcium Carbonate (Oscal) 500 mg PO DAILY [facility] Last Admin: 03/31/18 09:57 Dose: 500 mg Enoxaparin Sodium (Lovenox) 40 mg SC DAILY [facility] PRN Reason: Protocol Last Admin: 03/31/18 09:58 Dose: 40 mg Ergocalciferol (Drisdol 50,000 Intl Units Cap) 1 cap PO Q7D [facility] Last Admin: 03/30/18 17:39 Dose: 1 cap Ketorolac Tromethamine (Toradol) 15 mg IVP Q6 PRN PRN Reason: Pain, moderate (4-7) Ketorolac Tromethamine (Toradol) 30 mg IVP Q6 PRN PRN Reason: Pain, severe (8-10) Losartan Potassium (Cozaar) 100 mg PO DAILY [facility] Last Admin: 03/31/18 09:58 Dose: 100 mg Metoclopramide HCl (Reglan) 10 mg IVP Q6 PRN PRN Reason: Nausea/Vomiting Metoprolol Tartrate (Lopressor) 50 mg PO BID [facility] Last Admin: 05/26/18 16:54 Dose: 50 mg Pantoprazole Sodium (Protonix Inj) 40 mg IVP DAILY [facility] Last Admin: 03/31/18 09:59 Dose: 40 mg Polyethylene Glycol (Miralax) 17 gm PO BID [facility] Last Admin: 03/31/18 16:55 Dose: 17 gm Pregabalin (Lyrica) 50 mg PO BID [facility] Last Admin: 03/31/18 16:53 Dose: 50 mg Primidone (Mysoline) 50 mg PO BID [facility] Last Admin: 03/31/18 16:54 Dose: 50 mg Tiotropium [place] (Spiriva) 18 mcg INH DAILY [facility] Last Admin: 03/31/18 10:00 Dose: 18 mcg Trazodone HCl (Desyrel) 100 mg PO HS [facility] Last Admin: 03/31/18 22:40 Dose: 100 mg - Labs Labs: 03/31/18 04:25 03/31/18 04:25 - Constitutional Appears: Non-toxic, No Acute Distress - Head Exam Head Exam: ATRAUMATIC, NORMOCEPHALIC - Eye Exam Eye Exam: EOMI. absent: Scleral icterus - GI/Abdominal Exam GI & Abdominal Exam: Distended (mild), Soft. absent: Firm, Guarding, Rigid, Tenderness - Neurological Exam Neurological Exam: Alert, Awake, Oriented x3 - Skin Skin Exam: Dry, Warm Assessment and Plan - Assessment and Plan (Free Text) Assessment: 77M with Post Op Ileus, resolving Plan: Possibly advance diet today Monitor labs F/U c diff results Will D/W Dr. Ariel Hilliard PGY4
[2018-04-01] MEDS: POLYETHYLENE GLYCOL 3350 17 GM/Dose PACKET PO SCH (09:32)
[2018-04-01] MEDS: Enoxaparin 40 mg Syringe SC SCH (09:32)
[2018-04-01] MEDS: Tiotropium 18 mcg Cap For Inhalation INH SCH (09:33)
--- NOTE | 2018-04-01 11:57 | CP.PCM.DIS ---
Provider - Provider Date of Admission: 03/30/18 10:42 Attending physician: Jorge A Mcconnell MD Time Spent in preparation of Discharge (in minutes): 30 Hospital Course - Lab Results Lab Results: Most Recent Lab Values WBC 8.2 K/uL (4.8-10.8) 03/31/18 04:25 RBC 3.39 Mil/uL (4.40-5.90) L 03/31/18 04:25 Hgb 10.9 g/dL (12.0-18.0) L 03/31/18 04:25 Hct 32.8 % (35.0-51.0) L 03/31/18 04:25 MCV 96.6 fl (80.0-94.0) H 03/31/18 04:25 MCH 32.2 pg (27.0-31.0) H 03/31/18 04:25 MCHC 33.3 g/dL (33.0-37.0) 03/31/18 04:25 RDW 14.6 % (11.5-14.5) H 03/31/18 04:25 Plt Count 338 K/uL (130-400) 03/31/18 04:25 MPV 8.4 fl (7.2-11.7) 03/31/18 04:25 Neut % (Auto) 76.7 % (50.0-75.0) H 03/31/18 04:25 Lymph % (Auto) 15.4 % (20.0-40.0) L 03/31/18 04:25 [place] % (Auto) 7.4 % (0.0-10.0) 03/31/18 04:25 Eos % (Auto) 0.3 % (0.0-4.0) 03/31/18 04:25 Baso % (Auto) 0.2 % (0.0-2.0) 03/31/18 04:25 Neut # (Auto) 6.3 K/uL (1.8-7.0) 03/31/18 04:25 Lymph # (Auto) 1.3 K/uL (1.0-4.3) 03/31/18 04:25 [place] # (Auto) 0.6 K/uL (0.0-0.8) 03/31/18 04:25 Eos # (Auto) 0.0 K/uL (0.0-0.7) 03/31/18 04:25 Baso # (Auto) 0.0 K/uL (0.0-0.2) 03/31/18 04:25 Neutrophils % (Manual) 90 % (42-75) H 03/30/18 10:40 Lymphocytes % (Manual) 4 % (20-50) L 03/30/18 10:40 Monocytes % (Manual) 5 % (0-10) 03/30/18 10:40 Eosinophils % (Manual) 1 % (0-7) 03/30/18 10:40 Platelet Estimate Normal (NORMAL) 03/30/18 10:40 Large Platelets Present 03/30/18 10:40 Anisocytosis (manual) Slight 03/30/18 10:40 Microcytosis (manual) Slight 03/30/18 10:40 Macrocytosis (manual) Slight 03/30/18 10:40 Ovalocytes Slight 03/30/18 10:40 pO2 38 mm/Hg (30-55) 03/30/18 10:06 VBG pH 7.34 (7.32-7.43) 03/30/18 10:06 VBG pCO2 43 mmHg (40-60) 03/30/18 10:06 VBG HCO3 22.2 mmol/L 03/30/18 10:06 VBG Total CO2 24.5 mmol/L (22-28) 03/30/18 10:06 VBG O2 Sat (Calc) 73.8 % (40-65) H 03/30/18 10:06 VBG Base Excess -2.6 mmol/L (0.0-2.0) L 03/30/18 10:06 VBG Potassium 4.0 mmol/L (3.6-5.2) 03/30/18 10:06 Sodium 134.0 mmol/L (132-148) 03/30/18 10:06 Chloride 102.0 mmol/L (98-107) 03/30/18 10:06 Glucose 118 mg/dL (75-110) H 03/30/18 10:06 Lactate 2.0 mmol/L (0.7-2.1) 03/30/18 10:06 FiO2 21.0 % 03/30/18 10:06 Sodium 143 mmol/l (132-148) 03/31/18 04:25 Potassium 3.5 MMOL/L (3.6-5.0) L 03/31/18 04:25 Chloride 107 mmol/L (98-107) 03/31/18 04:25 Carbon Dioxide 21 mmol/L (22-30) L 03/31/18 04:25 Anion Gap 19 (10-20) 03/31/18 04:25 BUN 16 mg/dl (9-20) 03/31/18 04:25 Creatinine 1.0 mg/dl (0.8-1.5) 03/31/18 04:25 Est GFR ( Amer) > 60 03/31/18 04:25 Est GFR (Non-Af Amer) > 60 03/31/18 04:25 POC Glucose (mg/dL) 111 mg/dL (65-110) H 03/30/18 09:55 Random Glucose 80 mg/dL (75-110) 03/31/18 04:25 Calcium 7.8 mg/dL (8.4-10.2) L 03/31/18 04:25 Total Bilirubin 1.2 mg/dl (0.2-1.3) 03/30/18 10:40 AST 81 U/L (17-59) H 03/30/18 10:40 ALT 77 U/L (21-72) H D 03/30/18 10:40 Alkaline Phosphatase 78 U/L (38-126) 03/30/18 10:40 Total Protein 6.7 G/DL (6.3-8.2) 03/30/18 10:40 Albumin 3.4 g/dL (3.5-5.0) L 03/30/18 10:40 Globulin 3.3 gm/dL (2.2-3.9) 03/30/18 10:40 Albumin/Globulin Ratio 1.0 (1.0-2.1) 03/30/18 10:40 Venous Blood Potassium 4.0 mmol/L (3.6-5.2) 03/30/18 10:06 - Hospital Course Hospital Course: 77 yo male with history of CAD, HTN and OA had right TKR at [facility] on after failing conservative management. [place] bloated 1st day postop followed with abdominal distention associated with nausea . He had no BM but was able to pass flatus. Last BM was before surgery. Patient was transferred to TCU on 03/23/2018 for therapy. He continued to have abdominal distention with abdominal discomfort and nausea. Obstructive series showed ileus. GI and surgery were consulted and patient was put on laxative and NPO. He started passing out brownish liquid stools but continued to have abdominal distention and nausea. CT scan of abdomen with oral/IV contrast showed mild diffused dilatation of small bowel and colon without evidence of obstruction. He was restarted on clear liquid diet however, he started vomiting. He was sent to the ED for admission to medical floor. Pt was evaluated by Surgery and GI, patient tolerated PO diet today and has had soft BM. Stable to be discharged back to TCU today. 1. Post-op Ileus Obstructive series showed bowel ileus CT scan of abdomen with PO/IV contrast: mild diffused dilatation of small bowel and colon without evidence of obstruction NGT was inserted - pt's abd distention and pain improved. D/C yesterday. Vomiting resolved approx 650 ml of bilious drainage since NGT placed yesterday + BM and flatus Surgery consulted Dr Ester George d/c NGT today and rec to start Liquid diet GI consulted Stool C diff : negative Plan to d/c pt back to TCU today. Tolerated PO today. 2. Primary Osteoarthritis s/p right TKR Pain management with Toradol continue OT/PT DVT proph 3. HTN BP stable continue Lopressor/ Losartan/Amlodipine 4. CAD , stable continue ASA and Lipitor 5. DVT prophylaxis continue Lovenox Discharge Exam - Head Exam Head Exam: ATRAUMATIC, NORMOCEPHALIC - Eye Exam Eye Exam: EOMI, Normal appearance, PERRL Pupil Exam: NORMAL ACCOMODATION - ENT Exam ENT Exam: Mucous Membranes Moist, Normal Oropharynx - Respiratory Exam Respiratory Exam: Clear to PA & Lateral, NORMAL BREATHING PATTERN - Cardiovascular Exam Cardiovascular Exam: RRR, +S1, +S2 - GI/Abdominal Exam GI & Abdominal Exam: Normal Bowel Sounds, Soft. absent: Mass, Organomegaly, Tenderness - Extremities Exam Extremities exam: normal capillary refill, pedal pulses present - Back Exam Back exam: NORMAL INSPECTION. absent: CVA tenderness (L), CVA tenderness (R) - Neurological Exam Neurological exam: Alert, Oriented x3 - Psychiatric Exam Psychiatric exam: Normal Affect, Normal Mood - Skin Skin Exam: Dry, Warm Discharge Plan - Follow Up Plan Condition: FAIR Disposition: TRANSF TO SNF
[2018-04-01 12:11] VITALS: BP 124/81; PULSE 65; TEMP 98.1; O2SAT 94
== END 2018-04-01 15:58 | DRG 394 ==
LOC: H.ER 09:45 → H.ERHOLD 10:42 → H.TEL 13:14 → UNDODISIN 04-01 15:39
DX: K91.89 Other postprocedural complications and disorders of digestive system (principal); K56.7 Ileus, unspecified; M19.91 Primary osteoarthritis, unspecified site; Z96.651 Presence of right artificial knee joint; F41.9 Anxiety disorder, unspecified; H26.9 Unspecified cataract; R42 Dizziness and giddiness; Y83.1 Surgical operation with implant of artificial internal device as the cause of abnormal reaction of the patient, or of later complication, without mention of misadventure at the time of the procedure; M25.561 Pain in right knee; R25.1 Tremor, unspecified; E78.00 Pure hypercholesterolemia, unspecified; I10 Essential (primary) hypertension; I25.10 Atherosclerotic heart disease of native coronary artery without angina pectoris

== ENCOUNTER 2018-04-01 15:59 | Inpatient (IN) | payer OTHER ==
[2018-04-01] MEDS ORDERED: Tuberculin 5 Units/0.1 ml Inj ID ONE (16:37)
[2018-04-01] MEDS ORDERED: Ergocalciferol 50,000 Intl Units Cap PO SCH (17:15)
[2018-04-01] MEDS: Tiotropium 18 mcg Cap For Inhalation INH SCH (17:30)
[2018-04-01] MEDS: Albuterol-Ipratrop 3 mg / 0.5 (3 ml) UD INH SCH (20:10)
[2018-04-02] MEDS: Albuterol-Ipratrop 3 mg / 0.5 (3 ml) UD INH SCH ×4 (03:19→19:38)
[2018-04-02] MEDS: Enoxaparin 40 mg Syringe SC SCH (08:27)
[2018-04-02] MEDS: POLYETHYLENE GLYCOL 3350 17 GM/Dose PACKET PO SCH ×3 (08:28→21:35)
[2018-04-02] MEDS: Tiotropium 18 mcg Cap For Inhalation INH SCH (08:29)
--- NOTE | 2018-04-02 13:10 | CP.PCM.HP ---
History of Present Illness - History of Present Illness History of Present Illness: CC: s/p R TKR 77 yo male with history of CAD, HTN and OA had right TKR at [facility] on after failing conservative management. [place] bloated 1st day postop followed with abdominal distention associated with nausea . He had no BM but was able to pass flatus. Last BM was before surgery. Patient was transferred to TCU on 03/23/2018 for therapy. He continued to have abdominal distention with abdominal discomfort and nausea. Obstructive series showed ileus. GI and surgery were consulted and patient was put on laxative and NPO. He started passing out brownish liquid stools but continued to have abdominal distention and nausea. CT scan of abdomen with oral/IV contrast showed mild diffused dilatation of small bowel and colon without evidence of obstruction. He was restarted on clear liquid diet however, he started vomiting. He was sent to the ED for admission to medical floor. Druing his stay there, Pt was evaluated by Surgery and GI, patient tolerated PO diet today and has had soft BM. Is now being admitted back to TCU for continuation of his therapies. Present on Admission - Present on Admission Any Indicators Present on Admission: No Review of Systems - Review of Systems Review of Systems: A 12 point ROS was conducted and found to be negative other than in HPI. Past Patient History - Infectious Disease Hx of Infectious Diseases: None - Past Medical History & Family History Past Medical History?: Yes - Past Social History Smoking Status: Never Smoked - CARDIAC Hx Congestive Heart Failure: Yes Hx Hypercholesterolemia: Yes Hx Hypertension: Yes - PULMONARY Hx Respiratory Disorders: No - NEUROLOGICAL Hx Neurological Disorder: Yes Hx Dizziness: Yes (NO MEDICATIONS FOR DIZZINESS) Other/Comment: GENERALIZED TREMORS NO DX - HEENT Hx HEENT Problems: Yes (DECREASED IN HEARING-NO HEARING AIDS) Hx Cataracts: Yes (BILAT. NO SURGERY) - RENAL Hx Chronic Kidney Disease: No - ENDOCRINE/METABOLIC Hx Endocrine Disorders: No - HEMATOLOGICAL/ONCOLOGICAL Hx Blood Disorders: No Hx AIDS: No Hx Human Immunodeficiency Virus (HIV): No - INTEGUMENTARY Hx Dermatological Problems: No - MUSCULOSKELETAL/RHEUMATOLOGICAL Hx Arthritis: Yes Hx Falls: Yes Hx Osteoarthritis: Yes - GASTROINTESTINAL Hx Gastrointestinal Disorders: No - GENITOURINARY/GYNECOLOGICAL Hx Genitourinary Disorders: No - PSYCHIATRIC Hx Anxiety: Yes Hx Depression: Yes Hx Substance Use: No - SURGICAL HISTORY Hx Surgeries: Yes Hx Angioplasty: Yes (X 8- 10 YEARS AGO) Hx Cardiac Catheterization: Yes Hx Orthopedic Surgery: Yes (right shoulder) Other/Comment: Rt. Knee Arthroplasty,Total Knee Replacement.03/20/18 - ANESTHESIA Hx Anesthesia: Yes Hx Anesthesia Reactions: No Hx Malignant Hyperthermia: No Meds Allergies/Adverse Reactions: Allergies Allergy/AdvReac Type Severity Reaction Status Date / Time No Known Allergies Allergy Verified 04/01/18 16:11 Physical Exam - Additional Findings Additional findings: Physical exam: Constitutional- cooperative, awake, alert Head- NCAT, PERRL Eye- PERRL, EOMI ENT- normal exam, MMM. Neck- normal inspection, supple, no JVD Respiratory- CTAB, no wheezes rales rhonchi Cardiovascular- RRR, +S1, +S2 no MRG GI/Abdominal- normal bowel sounds, soft, no mass, no hsm Skin- warm, dry Extremities Exam- normal capillary refill, normal inspection Neurological Exam- alert, awake, oriented Psych- normal mood, normal affect Results - Vital Signs Recent Vital Signs: Last Vital Signs Temp 98.4 F 04/02/18 08:00 Pulse 82 04/02/18 09:02 Resp 20 04/02/18 08:00 BP 134/78 04/02/18 09:02 Pulse Ox 98 04/02/18 09:02 - Labs Labs: Laboratory Results - last 24 hr 04/01/18 19:20 C. difficile Ag & Toxin Negative Assessment & Plan - Assessment and Plan (Free Text) Plan: 77 yo male with history of CAD, HTN and OA had right TKR at [facility] on after failing conservative management. [place] bloated 1st day postop followed with abdominal distention associated with nausea . He had no BM but was able to pass flatus. Last BM was before surgery. Patient was transferred to TCU on 03/23/2018 for therapy. He continued to have abdominal distention with abdominal discomfort and nausea. Obstructive series showed ileus. GI and surgery were consulted and patient was put on laxative and NPO. He started passing out brownish liquid stools but continued to have abdominal distention and nausea. CT scan of abdomen with oral/IV contrast showed mild diffused dilatation of small bowel and colon without evidence of obstruction. He was restarted on clear liquid diet however, he started vomiting. He was sent to the ED for admission to medical floor. Druing his stay there, Pt was evaluated by Surgery and GI, patient tolerated PO diet today and has had soft BM. Is now being admitted back to TCU for continuation of his therapies. 1. Post-op Ileus Resolving, continuing to tolerate PO. Obstructive series showed bowel ileus during inpt CT scan of abdomen with PO/IV contrast: mild diffused dilatation of small bowel and colon without evidence of obstruction + BM and flatus Stool C diff : negative 2. Primary Osteoarthritis s/p right TKR Pain management with Toradol continue OT/PT DVT proph Consult Dr. Torres for physiatry 3. HTN BP stable continue Lopressor/ Losartan/Amlodipine 4. CAD , stable continue ASA and Lipitor 5. DVT prophylaxis continue Lovenox
[2018-04-03] MEDS: Albuterol-Ipratrop 3 mg / 0.5 (3 ml) UD INH SCH ×4 (01:09→19:10)
[2018-04-03 06:25] LABS: HEMOGLOBIN 11.1 g/dL (12.0-18.0); MEAN CELL VOLUME 95.1 fl (80.0-94.0); MEAN CORPUSCULAR HEMOGLOBIN 32.1 pg (27.0-31.0); MEAN CORPUSCULAR HGB CONC 33.7 g/dL (33.0-37.0); RBC 3.45 Mil/uL (4.40-5.90); RED CELL DISTRIBUTION WIDTH 14.3 % (11.5-14.5)
[2018-04-03 06:45] LABS: BLOOD UREA NITROGEN 11 mg/dl (9-20); CALCIUM 8.1 mg/dL (8.4-10.2); GFR AFRICAN-AMERICAN > 60; GFR NON-AFRICAN AMERICAN > 60
[2018-04-03] MEDS: POLYETHYLENE GLYCOL 3350 17 GM/Dose PACKET PO SCH ×2 (08:13→20:18)
[2018-04-03] MEDS: Tiotropium 18 mcg Cap For Inhalation INH SCH (08:13)
[2018-04-03] MEDS: Enoxaparin 40 mg Syringe SC SCH (08:18)
[2018-04-03] MEDS ORDERED: Potassium Chloride 20 mEq/15 ml LIQ UD PO ONE (11:00)
--- NOTE | 2018-04-03 12:01 | CP.PCM.PN ---
Subjective - Date & Time of Evaluation Date of Evaluation: 04/03/18 Time of Evaluation: 10:30 - Subjective Subjective: Patient seen and examined bedside. Feeling better . Passing flatus . Denies abdominal pain , nausea or vomiting.Tolerating diet .Had BM today . Pain to right knee is well controlled.Hemodynamically stable, afebrile. No acute issues overnight Participating with PT . Objective - Vital Signs/Intake and Output Vital Signs (last 24 hours): Temp Pulse Resp BP Pulse Ox 97.9 F 64 18 152/69 H 100 04/03/18 09:29 04/03/18 09:29 04/03/18 09:29 04/03/18 09:29 04/03/18 09:29 - Medications Medications: Current Medications Acetaminophen (Tylenol 325mg Tab) 650 mg PO Q6 PRN PRN Reason: Pain, Mild (1-3) Last Admin: 04/03/18 08:13 Dose: 650 mg Albuterol/Ipratropium (Duoneb 3 Mg/0.5 Mg (3 Ml) Ud) 3 ml INH RQ6 [facility] Last Admin: 04/03/18 07:07 Dose: 3 ml Amlodipine Besylate (Norvasc) 5 mg PO DAILY [facility] Last Admin: 04/03/18 08:20 Dose: 5 mg Aspirin (Ecotrin) 81 mg PO DAILY [facility] Last Admin: 04/03/18 08:19 Dose: 81 mg Atorvastatin Calcium (Lipitor) 20 mg PO HS [facility] Last Admin: 04/02/18 21:34 Dose: 20 mg Calcium Carbonate (Oscal) 500 mg PO DAILY [facility] Last Admin: 04/03/18 08:13 Dose: 500 mg Enoxaparin Sodium (Lovenox) 40 mg SC DAILY [facility] PRN Reason: Protocol Last Admin: 04/03/18 08:18 Dose: 40 mg Ergocalciferol (Drisdol 50,000 Intl Units Cap) 1 cap PO [facility] Ketorolac Tromethamine (Toradol) 15 mg IVP Q6 PRN PRN Reason: Pain, moderate (4-7) Last Admin: 04/02/18 14:25 Dose: 15 mg Ketorolac Tromethamine (Toradol) 30 mg IVP Q6 PRN PRN Reason: Pain, severe (8-10) Losartan Potassium (Cozaar) 100 mg PO DAILY [facility] Last Admin: 04/03/18 08:18 Dose: 100 mg Metoclopramide HCl (Reglan) 10 mg IVP Q6 PRN PRN Reason: Nausea/Vomiting Metoprolol Tartrate (Lopressor) 50 mg PO BID [facility] Last Admin: 04/03/18 08:19 Dose: 50 mg Pantoprazole Sodium (Protonix Inj) 40 mg IVP DAILY [facility] Last Admin: 04/03/18 08:20 Dose: 40 mg Polyethylene Glycol (Miralax) 17 gm PO BID@0900,2000 [facility] Last Admin: 04/03/18 08:13 Dose: 17 gm Pregabalin (Lyrica) 50 mg PO BID [facility] Last Admin: 04/03/18 09:42 Dose: 50 mg Primidone (Mysoline) 50 mg PO BID [facility] Last Admin: 04/03/18 08:14 Dose: 50 mg Tiotropium [place] (Spiriva) 18 mcg INH DAILY [facility] Last Admin: 04/03/18 08:13 Dose: 18 mcg Trazodone HCl (Desyrel) 100 mg PO [facility] Last Admin: 04/02/18 21:34 Dose: 100 mg - Labs Labs: 04/03/18 05:45 04/03/18 05:45 - Constitutional Appears: Non-toxic, No Acute Distress - Head Exam Head Exam: ATRAUMATIC, NORMAL INSPECTION, NORMOCEPHALIC - Eye Exam Eye Exam: EOMI, Normal appearance, PERRL Pupil Exam: NORMAL ACCOMODATION - ENT Exam ENT Exam: Mucous Membranes Moist, Normal Exam - Neck Exam Neck Exam: Full ROM, Normal Inspection - Respiratory Exam Respiratory Exam: Clear to Ausculation Bilateral, NORMAL BREATHING PATTERN. absent: Rales, Rhonchi, Wheezes - Cardiovascular Exam Cardiovascular Exam: REGULAR RHYTHM, RRR, +S1, +S2. absent: JVD - GI/Abdominal Exam GI & Abdominal Exam: Soft, Normal Bowel Sounds. absent: Distended, Guarding, Tenderness, Rebound - Rectal Exam Rectal Exam: Deferred - Extremities Exam Additional comments: right knee dressing in place warmer to touch than left knee mildly swollen - Neurological Exam Neurological Exam: Alert, Awake, CN II-XII Intact, Oriented x3 - Psychiatric Exam Psychiatric exam: Normal Affect - Skin Skin Exam: Dry, Warm Assessment and Plan - Assessment and Plan (Free Text) Assessment: 77 yo male with history of CAD, HTN and OA had right TKR at [facility] on after failing conservative management. [place] bloated 1st day postop followed with abdominal distention associated with nausea . He had no BM but was able to pass flatus. Last BM was before surgery. Patient was transferred to TCU on 03/23/2018 for therapy. He continued to have abdominal distention with abdominal discomfort and nausea. Obstructive series showed ileus. GI and surgery were consulted and patient was put on laxative and NPO. He started passing out brownish liquid stools but continued to have abdominal distention and nausea. CT scan of abdomen with oral/IV contrast showed mild diffused dilatation of small bowel and colon without evidence of obstruction. He was restarted on clear liquid diet however, he started vomiting. He was sent to the ED for admission to medical floor. During his stay there, Pt was evaluated by Surgery and GI, patient tolerated PO diet and had soft BM. Admitted back to TCU for PT and doing well 1. Primary Osteoarthritis s/p right TKR Pain management with Tylenol , ultram PRN continue OT/PT DVT prophylaxis Consult Dr. Torres for physiatry 2. Post-op Ileus Resolved colace , lactulose PRN 3. HTN BP stable continue Lopressor/ Losartan/Amlodipine 4. CAD stable continue ASA and Lipitor 5.Hypokalemia replace with KCl Po 6. DVT prophylaxis continue Lovenox
[2018-04-04] MEDS: Albuterol-Ipratrop 3 mg / 0.5 (3 ml) UD INH SCH ×4 (01:04→19:04)
[2018-04-04] MEDS: POLYETHYLENE GLYCOL 3350 17 GM/Dose PACKET PO SCH ×2 (08:50→20:44)
[2018-04-04] MEDS: Enoxaparin 40 mg Syringe SC SCH (08:51)
[2018-04-04] MEDS: Tiotropium 18 mcg Cap For Inhalation INH SCH (08:53)
[2018-04-04] MEDS: Pantoprazole 40 mg EC Tab PO SCH (08:53)
--- NOTE | 2018-04-04 14:49 | CP.PCM.PN ---
Subjective - Date & Time of Evaluation Date of Evaluation: 04/03/18 Time of Evaluation: 11:00 - Subjective Subjective: no acute knee pain Objective - Vital Signs/Intake and Output Vital Signs (last 24 hours): Temp Pulse Resp BP Pulse Ox 97.3 F L 78 20 134/74 99 04/04/18 07:48 04/04/18 08:52 04/04/18 07:48 04/04/18 08:52 04/04/18 07:48 - Medications Medications: Current Medications Acetaminophen (Tylenol 325mg Tab) 650 mg PO Q6 PRN PRN Reason: Pain, Mild (1-3) Last Admin: 04/03/18 08:13 Dose: 650 mg Albuterol/Ipratropium (Duoneb 3 Mg/0.5 Mg (3 Ml) Ud) 3 ml INH RQ6 [facility] Last Admin: 04/04/18 13:31 Dose: 3 ml Amlodipine Besylate (Norvasc) 5 mg PO DAILY [facility] Last Admin: 04/04/18 08:52 Dose: 5 mg Aspirin (Ecotrin) 81 mg PO DAILY [facility] Last Admin: 04/04/18 08:53 Dose: 81 mg Atorvastatin Calcium (Lipitor) 20 mg PO HS [facility] Last Admin: 04/03/18 21:30 Dose: 20 mg Calcium Carbonate (Oscal) 500 mg PO DAILY [facility] Last Admin: 04/04/18 08:52 Dose: 500 mg Enoxaparin Sodium (Lovenox) 40 mg SC DAILY [facility] PRN Reason: Protocol Last Admin: 04/04/18 08:51 Dose: 40 mg Ergocalciferol (Drisdol 50,000 Intl Units Cap) 1 cap PO FRI [facility] Losartan Potassium (Cozaar) 100 mg PO DAILY [facility] Last Admin: 04/04/18 08:52 Dose: 100 mg Metoclopramide HCl (Reglan) 10 mg IVP Q6 PRN PRN Reason: Nausea/Vomiting Metoprolol Tartrate (Lopressor) 50 mg PO BID [facility] Last Admin: 04/04/18 08:51 Dose: 50 mg Pantoprazole Sodium (Protonix Ec Tab) 40 mg PO DAILY [facility] Last Admin: 04/04/18 08:53 Dose: 40 mg Polyethylene Glycol (Miralax) 17 gm PO BID@0900,2000 [facility] Last Admin: 04/04/18 08:50 Dose: 17 gm Pregabalin (Lyrica) 50 mg PO BID [facility] Last Admin: 04/04/18 10:13 Dose: 50 mg Primidone (Mysoline) 50 mg PO BID [facility] Last Admin: 04/04/18 08:50 Dose: 50 mg Tiotropium [place] (Spiriva) 18 mcg INH DAILY [facility] Last Admin: 04/04/18 08:53 Dose: 18 mcg Tramadol HCl (Ultram) 50 mg PO Q6 PRN PRN Reason: Pain, moderate (4-7) Trazodone HCl (Desyrel) 100 mg PO HS [facility] Last Admin: 04/03/18 21:30 Dose: 100 mg - Labs Labs: 04/03/18 05:45 04/03/18 05:45 - Head Exam Head Exam: ATRAUMATIC, NORMAL INSPECTION, NORMOCEPHALIC - Eye Exam Eye Exam: EOMI, Normal appearance Pupil Exam: NORMAL ACCOMODATION - ENT Exam ENT Exam: Mucous Membranes Moist, Normal Exam - Neck Exam Neck Exam: Full ROM, Normal Inspection - Respiratory Exam Respiratory Exam: Clear to Ausculation Bilateral, NORMAL BREATHING PATTERN - Cardiovascular Exam Cardiovascular Exam: REGULAR RHYTHM - GI/Abdominal Exam GI & Abdominal Exam: Soft, Normal Bowel Sounds - Rectal Exam Rectal Exam: NORMAL INSPECTION - Exam External exam: NORMAL EXTERNAL EXAM - Extremities Exam Extremities Exam: Full ROM, Normal Capillary Refill, Normal Inspection - Back Exam Back Exam: NORMAL INSPECTION - Neurological Exam Neurological Exam: Alert, Awake Neuro motor strength exam: Right Lower Extremity: 3 - Psychiatric Exam Psychiatric exam: Normal Affect, Normal Mood - Skin Skin Exam: Dry, Intact Assessment and Plan (1) Acute blood loss anemia Status: Acute (2) Ileus Status: Acute (3) Primary osteoarthritis of right knee Assessment & Plan: R TKR plan for physical occupational therapy program Status: Acute (4) Screen for colon cancer Status: Acute (5) HTN (hypertension) Status: Chronic (6) Internal hemorrhoid Status: Chronic (7) Vitamin D deficiency Status: Chronic
[2018-04-05] MEDS: Albuterol-Ipratrop 3 mg / 0.5 (3 ml) UD INH SCH ×4 (03:15→20:03)
[2018-04-05] MEDS: Enoxaparin 40 mg Syringe SC SCH (08:51)
[2018-04-05] MEDS: POLYETHYLENE GLYCOL 3350 17 GM/Dose PACKET PO SCH ×2 (08:53→20:04)
[2018-04-05] MEDS: Pantoprazole 40 mg EC Tab PO SCH (08:54)
[2018-04-05] MEDS: Tiotropium 18 mcg Cap For Inhalation INH SCH (08:54)
--- NOTE | 2018-04-05 09:44 | CP.PCM.PN ---
Subjective - Date & Time of Evaluation Date of Evaluation: 04/05/18 Time of Evaluation: 09:30 - Subjective Subjective: Patient seen and examined during PT. Feeling well. participating with PT. [id number] stable, afebrile.Tolerating PO intake and having regular BM Complains of some pain to right knee especially with ambulation Objective - Vital Signs/Intake and Output Vital Signs (last 24 hours): Temp Pulse Resp BP Pulse Ox 98.2 F 75 20 126/70 98 04/05/18 07:34 04/05/18 08:53 04/05/18 07:34 04/05/18 08:53 04/05/18 07:34 - Medications Medications: Current Medications Acetaminophen (Tylenol 325mg Tab) 650 mg PO Q6 PRN PRN Reason: Pain, Mild (1-3) Last Admin: 04/05/18 09:01 Dose: 650 mg Albuterol/Ipratropium (Duoneb 3 Mg/0.5 Mg (3 Ml) Ud) 3 ml INH RQ6 [facility] Last Admin: 04/05/18 07:19 Dose: 3 ml Amlodipine Besylate (Norvasc) 5 mg PO DAILY [facility] Last Admin: 04/05/18 08:52 Dose: 5 mg Aspirin (Ecotrin) 81 mg PO DAILY [facility] Last Admin: 04/05/18 08:52 Dose: 81 mg Atorvastatin Calcium (Lipitor) 20 mg PO HS [facility] Last Admin: 04/04/18 21:21 Dose: 20 mg Calcium Carbonate (Oscal) 500 mg PO DAILY [facility] Last Admin: 04/05/18 08:52 Dose: 500 mg Ergocalciferol (Drisdol 50,000 Intl Units Cap) 1 cap PO FRI [facility] Losartan Potassium (Cozaar) 100 mg PO DAILY [facility] Last Admin: 04/05/18 08:52 Dose: 100 mg Metoclopramide HCl (Reglan) 10 mg IVP Q6 PRN PRN Reason: Nausea/Vomiting Metoprolol Tartrate (Lopressor) 50 mg PO BID [facility] Last Admin: 04/05/18 08:53 Dose: 50 mg Pantoprazole Sodium (Protonix Ec Tab) 40 mg PO DAILY [facility] Last Admin: 04/05/18 08:54 Dose: 40 mg Polyethylene Glycol (Miralax) 17 gm PO BID@0900,1999 [facility] Last Admin: 04/05/18 08:53 Dose: 17 gm Pregabalin (Lyrica) 50 mg PO BID [facility] Last Admin: 04/05/18 08:51 Dose: 50 mg Primidone (Mysoline) 50 mg PO BID [facility] Last Admin: 04/05/18 08:54 Dose: 50 mg Tiotropium [place] (Spiriva) 18 mcg INH DAILY [facility] Last Admin: 04/05/18 08:54 Dose: 18 mcg Tramadol HCl (Ultram) 50 mg PO Q6 PRN PRN Reason: Pain, moderate (4-7) Trazodone HCl (Desyrel) 100 mg PO HS [facility] Last Admin: 04/04/18 21:20 Dose: 100 mg - Labs Labs: 04/03/18 05:45 04/03/18 05:45 - Constitutional Appears: Non-toxic, No Acute Distress - Head Exam Head Exam: ATRAUMATIC, NORMAL INSPECTION, NORMOCEPHALIC - Eye Exam Eye Exam: EOMI, Normal appearance, PERRL Pupil Exam: NORMAL ACCOMODATION - ENT Exam ENT Exam: Mucous Membranes Moist, Normal Exam - Neck Exam Neck Exam: Full ROM, Normal Inspection - Respiratory Exam Respiratory Exam: Clear to Ausculation Bilateral, NORMAL BREATHING PATTERN. absent: Rales, Respiratory Distress - Cardiovascular Exam Cardiovascular Exam: REGULAR RHYTHM, RRR, +S1, +S2. absent: JVD - GI/Abdominal Exam GI & Abdominal Exam: Soft, Normal Bowel Sounds. absent: Distended, Guarding, Tenderness, Rebound - Rectal Exam Rectal Exam: Deferred - Extremities Exam Extremities Exam: Normal Capillary Refill. absent: Calf Tenderness Additional comments: right knee felix in place and wound healed well slight edema and erythema anterior knee - Back Exam Back Exam: NORMAL INSPECTION - Neurological Exam Neurological Exam: Alert, Awake, CN II-XII Intact, Oriented x3 - Psychiatric Exam Psychiatric exam: Normal Affect, Normal Mood - Skin Skin Exam: Dry, Intact, Warm Assessment and Plan - Assessment and Plan (Free Text) Assessment: 77 yo male with history of CAD, HTN and OA had right TKR at [facility] on after failing conservative management. [place] bloated 1st day postop followed with abdominal distention associated with nausea . He had no BM but was able to pass flatus. Last BM was before surgery. Patient was transferred to TCU on 03/23/2018 for therapy. He continued to have abdominal distention with abdominal discomfort and nausea. Obstructive series showed ileus. GI and surgery were consulted and patient was put on laxative and NPO. He started passing out brownish liquid stools but continued to have abdominal distention and nausea. CT scan of abdomen with oral/IV contrast showed mild diffused dilatation of small bowel and colon without evidence of obstruction. He was restarted on clear liquid diet however, he started vomiting. He was sent to the ED for admission to medical floor. During his stay there, Pt was evaluated by Surgery and GI, patient tolerated PO diet and had soft BM. Admitted back to TCU for PT and doing well. 1. Primary Osteoarthritis s/p right TKR Participating well with PT Wound healing well , felix still in place Pain management with Tylenol , ultram PRN continue OT/PT DVT prophylaxis Consult with Dr. Torres physiatry appreciated 2. Post-op Ileus Resolved colace , lactulose PRN 3. HTN BP stable continue Lopressor/ Losartan/Amlodipine 4. CAD stable continue ASA and Lipitor 5.Hypokalemia replaced 6. DVT prophylaxis continue Lovenox
[2018-04-06] MEDS: Albuterol-Ipratrop 3 mg / 0.5 (3 ml) UD INH SCH ×4 (01:25→19:28)
[2018-04-06] MEDS: POLYETHYLENE GLYCOL 3350 17 GM/Dose PACKET PO SCH ×2 (08:50→21:21)
[2018-04-06] MEDS: Tiotropium 18 mcg Cap For Inhalation INH SCH (08:51)
[2018-04-06] MEDS: Pantoprazole 40 mg EC Tab PO SCH (08:57)
[2018-04-06] MEDS ORDERED: Ergocalciferol 50,000 Intl Units Cap PO SCH (09:00)
[2018-04-06] MEDS: Enoxaparin 40 mg Syringe SC SCH (10:50)
[2018-04-06] MEDS ORDERED: Alum-Mag Hydrox-Simethicone Susp (30 mL) PO PRN (14:24)
[2018-04-06] MEDS ORDERED: Trimethobenzamide 200 mg/2 mL Inj IM ONE (15:47)
--- NOTE | 2018-04-06 19:04 | CP.PCM.PN ---
Subjective - Date & Time of Evaluation Date of Evaluation: 04/06/18 Time of Evaluation: 12:00 - Subjective Subjective: patient with less complaints of knee pain Objective - Vital Signs/Intake and Output Vital Signs (last 24 hours): Temp Pulse Resp BP Pulse Ox 99.0 F 83 20 148/87 94 L 04/06/18 15:28 04/06/18 17:55 04/06/18 15:28 04/06/18 17:55 04/06/18 15:28 - Medications Medications: Current Medications Acetaminophen (Tylenol 325mg Tab) 650 mg PO Q6 PRN PRN Reason: Pain, Mild (1-3) Last Admin: 04/05/18 09:01 Dose: 650 mg Al Hydrox/Mg Hydrox/Simethicone (Maalox Plus 30 Ml) 30 ml PO Q6 PRN PRN Reason: Indigestion / Heartburn Albuterol/Ipratropium (Duoneb 3 Mg/0.5 Mg (3 Ml) Ud) 3 ml INH RQ6 [facility] Last Admin: 04/06/18 13:41 Dose: 3 ml Amlodipine Besylate (Norvasc) 5 mg PO DAILY [facility] Last Admin: 04/06/18 08:50 Dose: 5 mg Aspirin (Ecotrin) 81 mg PO DAILY [facility] Last Admin: 04/06/18 08:49 Dose: 81 mg Atorvastatin Calcium (Lipitor) 20 mg PO HS [facility] Last Admin: 04/05/18 21:14 Dose: 20 mg Calcium Carbonate (Oscal) 500 mg PO DAILY [facility] Last Admin: 04/06/18 08:50 Dose: 500 mg Dicyclomine HCl (Bentyl) 20 mg PO QID PRN PRN Reason: GI distress Enoxaparin Sodium (Lovenox) 40 mg SC DAILY [facility] PRN Reason: Protocol Last Admin: 04/06/18 10:50 Dose: 40 mg Ergocalciferol (Drisdol 50,000 Intl Units Cap) 1 cap PO FRI [facility] Last Admin: 04/06/18 08:59 Dose: 1 cap Losartan Potassium (Cozaar) 100 mg PO DAILY [facility] Last Admin: 04/06/18 08:48 Dose: 100 mg Metoclopramide HCl (Reglan) 10 mg IVP Q6 PRN PRN Reason: Nausea/Vomiting Last Admin: 04/06/18 10:48 Dose: 10 mg Metoprolol Tartrate (Lopressor) 50 mg PO BID [facility] Last Admin: 04/06/18 17:55 Dose: 50 mg Pantoprazole Sodium (Protonix Ec Tab) 40 mg PO DAILY [facility] Last Admin: 04/06/18 08:57 Dose: 40 mg Polyethylene Glycol (Miralax) 17 gm PO BID@0900,2000 [facility] Last Admin: 04/06/18 08:50 Dose: 17 gm Pregabalin (Lyrica) 50 mg PO BID [facility] Last Admin: 04/06/18 17:55 Dose: 50 mg Primidone (Mysoline) 50 mg PO BID [facility] Last Admin: 04/06/18 17:55 Dose: 50 mg Tiotropium [place] (Spiriva) 18 mcg INH DAILY [facility] Last Admin: 04/06/18 08:51 Dose: 18 mcg Tramadol HCl (Ultram) 50 mg PO Q6 PRN PRN Reason: Pain, moderate (4-7) Last Admin: 04/05/18 13:14 Dose: 50 mg Trazodone HCl (Desyrel) 100 mg PO [facility] Last Admin: 04/05/18 21:14 Dose: 100 mg - Labs Labs: 04/03/18 05:45 04/03/18 05:45 - Head Exam Head Exam: ATRAUMATIC, NORMAL INSPECTION, NORMOCEPHALIC - Eye Exam Eye Exam: EOMI, Normal appearance Pupil Exam: NORMAL ACCOMODATION, PERRL - ENT Exam ENT Exam: Mucous Membranes Moist, Normal Exam - Neck Exam Neck Exam: Full ROM, Normal Inspection - Respiratory Exam Respiratory Exam: Clear to Ausculation Bilateral, NORMAL BREATHING PATTERN - Cardiovascular Exam Cardiovascular Exam: REGULAR RHYTHM - GI/Abdominal Exam GI & Abdominal Exam: Soft - Rectal Exam Rectal Exam: NORMAL INSPECTION - Exam External exam: NORMAL EXTERNAL EXAM - Extremities Exam Extremities Exam: Full ROM, Normal Capillary Refill, Normal Inspection - Back Exam Back Exam: NORMAL INSPECTION - Neurological Exam Neurological Exam: Alert, Awake Neuro motor strength exam: Left Upper Extremity: 4, Right Upper Extremity: 4, Left Lower Extremity: 4, Right Lower Extremity: 3 - Psychiatric Exam Psychiatric exam: Normal Affect, Normal Mood - Skin Skin Exam: Dry, Normal Color Assessment and Plan (1) Acute blood loss anemia Status: Acute (2) Ileus Status: Acute (3) Primary osteoarthritis of right knee Assessment & Plan: right knee replacement, skin healing at present with dressing, continue with tylenol, ultram physical, occupational therapy program Status: Acute (4) Screen for colon cancer Status: Acute (5) HTN (hypertension) Status: Chronic (6) Internal hemorrhoid Status: Chronic (7) Vitamin D deficiency Status: Chronic
--- NOTE | 2018-04-06 19:08 | CP.PCM.PN ---
Subjective - Date & Time of Evaluation Date of Evaluation: 04/04/18 Time of Evaluation: 13:00 - Subjective Subjective: no acute complaint Objective - Vital Signs/Intake and Output Vital Signs (last 24 hours): Temp Pulse Resp BP Pulse Ox 99.0 F 83 20 148/87 94 L 04/06/18 15:28 04/06/18 17:55 04/06/18 15:28 04/06/18 17:55 04/06/18 15:28 - Medications Medications: Current Medications Acetaminophen (Tylenol 325mg Tab) 650 mg PO Q6 PRN PRN Reason: Pain, Mild (1-3) Last Admin: 04/05/18 09:01 Dose: 650 mg Al Hydrox/Mg Hydrox/Simethicone (Maalox Plus 30 Ml) 30 ml PO Q6 PRN PRN Reason: Indigestion / Heartburn Albuterol/Ipratropium (Duoneb 3 Mg/0.5 Mg (3 Ml) Ud) 3 ml INH RQ6 [facility] Last Admin: 04/06/18 13:41 Dose: 3 ml Amlodipine Besylate (Norvasc) 5 mg PO DAILY [facility] Last Admin: 04/06/18 08:50 Dose: 5 mg Aspirin (Ecotrin) 81 mg PO DAILY [facility] Last Admin: 04/06/18 08:49 Dose: 81 mg Atorvastatin Calcium (Lipitor) 20 mg PO HS [facility] Last Admin: 04/05/18 21:14 Dose: 20 mg Calcium Carbonate (Oscal) 500 mg PO DAILY [facility] Last Admin: 04/06/18 08:50 Dose: 500 mg Dicyclomine HCl (Bentyl) 20 mg PO QID PRN PRN Reason: GI distress Enoxaparin Sodium (Lovenox) 40 mg SC DAILY [facility] PRN Reason: Protocol Last Admin: 04/06/18 10:50 Dose: 40 mg Ergocalciferol (Drisdol 50,000 Intl Units Cap) 1 cap PO FRI [facility] Last Admin: 04/06/18 08:59 Dose: 1 cap Losartan Potassium (Cozaar) 100 mg PO DAILY [facility] Last Admin: 04/06/18 08:48 Dose: 100 mg Metoclopramide HCl (Reglan) 10 mg IVP Q6 PRN PRN Reason: Nausea/Vomiting Last Admin: 04/06/18 10:48 Dose: 10 mg Metoprolol Tartrate (Lopressor) 50 mg PO BID [facility] Last Admin: 04/06/18 17:55 Dose: 50 mg Pantoprazole Sodium (Protonix Ec Tab) 40 mg PO DAILY [facility] Last Admin: 04/06/18 08:57 Dose: 40 mg Polyethylene Glycol (Miralax) 17 gm PO BID@0900,1999 [facility] Last Admin: 04/06/18 08:50 Dose: 17 gm Pregabalin (Lyrica) 50 mg PO BID [facility] Last Admin: 04/06/18 17:55 Dose: 50 mg Primidone (Mysoline) 50 mg PO BID [facility] Last Admin: 04/06/18 17:55 Dose: 50 mg Tiotropium [place] (Spiriva) 18 mcg INH DAILY [facility] Last Admin: 04/06/18 08:51 Dose: 18 mcg Tramadol HCl (Ultram) 50 mg PO Q6 PRN PRN Reason: Pain, moderate (4-7) Last Admin: 04/05/18 13:14 Dose: 50 mg Trazodone HCl (Desyrel) 100 mg PO [facility] Last Admin: 04/05/18 21:14 Dose: 100 mg - Labs Labs: 04/03/18 05:45 04/03/18 05:45 - Head Exam Head Exam: ATRAUMATIC, NORMAL INSPECTION, NORMOCEPHALIC - Eye Exam Eye Exam: Normal appearance Pupil Exam: NORMAL ACCOMODATION, PERRL - ENT Exam ENT Exam: Mucous Membranes Moist - Respiratory Exam Respiratory Exam: Clear to Ausculation Bilateral, NORMAL BREATHING PATTERN - Cardiovascular Exam Cardiovascular Exam: REGULAR RHYTHM - GI/Abdominal Exam GI & Abdominal Exam: Normal Bowel Sounds - Rectal Exam Rectal Exam: NORMAL INSPECTION - Exam External exam: NORMAL EXTERNAL EXAM - Extremities Exam Extremities Exam: Normal Capillary Refill - Back Exam Back Exam: NORMAL INSPECTION - Neurological Exam Neuro motor strength exam: Right Lower Extremity: 3 - Psychiatric Exam Psychiatric exam: Normal Affect, Normal Mood Assessment and Plan (1) Acute blood loss anemia Status: Acute (2) Ileus Status: Acute (3) Primary osteoarthritis of right knee Assessment & Plan: Pt, Ot rec therapy Status: Acute (4) Screen for colon cancer Status: Acute (5) HTN (hypertension) Status: Chronic (6) Internal hemorrhoid Status: Chronic (7) Vitamin D deficiency Status: Chronic
[2018-04-07] MEDS: Albuterol-Ipratrop 3 mg / 0.5 (3 ml) UD INH SCH ×4 (01:29→19:14)
[2018-04-07] MEDS: POLYETHYLENE GLYCOL 3350 17 GM/Dose PACKET PO SCH ×2 (08:14→20:30)
[2018-04-07] MEDS: Enoxaparin 40 mg Syringe SC SCH (08:14)
[2018-04-07] MEDS: Tiotropium 18 mcg Cap For Inhalation INH SCH (08:15)
[2018-04-07] MEDS: Pantoprazole 40 mg EC Tab PO SCH (08:15)
[2018-04-08] MEDS: Albuterol-Ipratrop 3 mg / 0.5 (3 ml) UD INH SCH ×4 (01:04→19:00)
[2018-04-08] MEDS: Tiotropium 18 mcg Cap For Inhalation INH SCH (08:59)
[2018-04-08] MEDS: Enoxaparin 40 mg Syringe SC SCH (09:00)
[2018-04-08] MEDS: POLYETHYLENE GLYCOL 3350 17 GM/Dose PACKET PO SCH ×2 (09:00→20:07)
[2018-04-08] MEDS: Pantoprazole 40 mg EC Tab PO SCH (09:03)
[2018-04-08] MEDS ORDERED: Simethicone 80 mg Chewtab PO ONE (12:50)
[2018-04-09] MEDS: Albuterol-Ipratrop 3 mg / 0.5 (3 ml) UD INH SCH ×4 (01:23→19:51)
[2018-04-09 06:24] LABS: BLOOD UREA NITROGEN 12 mg/dl (9-20); CALCIUM 8.9 mg/dL (8.4-10.2); GFR AFRICAN-AMERICAN > 60; GFR NON-AFRICAN AMERICAN 59
[2018-04-09] MEDS: Tiotropium 18 mcg Cap For Inhalation INH SCH (08:40)
[2018-04-09] MEDS: Enoxaparin 40 mg Syringe SC SCH (08:41)
[2018-04-09] MEDS: Pantoprazole 40 mg EC Tab PO SCH (08:46)
[2018-04-09] MEDS: POLYETHYLENE GLYCOL 3350 17 GM/Dose PACKET PO SCH (10:41)
[2018-04-09] MEDS ORDERED: POLYETHYLENE GLYCOL 3350 17 GM/Dose PACKET PO PRN (12:05)
[2018-04-09] MEDS ORDERED: Chlorhexidine Gluconate 1 APPL/PKT TP ONE (16:24)
[2018-04-10] MEDS: Albuterol-Ipratrop 3 mg / 0.5 (3 ml) UD INH SCH ×4 (01:07→19:45)
[2018-04-10] MEDS: Enoxaparin 40 mg Syringe SC SCH (08:28)
[2018-04-10] MEDS: Tiotropium 18 mcg Cap For Inhalation INH SCH (08:29)
[2018-04-10] MEDS: Pantoprazole 40 mg EC Tab PO SCH (08:31)
--- NOTE | 2018-04-10 11:54 | CP.PCM.PN ---
Subjective - Date & Time of Evaluation Date of Evaluation: 04/10/18 Time of Evaluation: 11:52 - Subjective Subjective: pt with bloating of abdomen, soft, however distended will closely monitor admits to soft BM and flatus today encouraged frequent ambulation today hd stable Objective - Vital Signs/Intake and Output Vital Signs (last 24 hours): Temp Pulse Resp BP Pulse Ox 97.5 F L 99 H 19 119/71 94 L 04/10/18 10:00 04/10/18 10:00 04/10/18 10:00 04/10/18 10:00 04/10/18 10:00 Vitals Reviewed GEN: WDWN, alert, cooperative HEENT: NCAT, PERRL, EOMI HEART: RRR, +S1S2, NO MRG LUNG: CTAB, NO WRR ABD: soft, NT, distended, not firm, not rigid, No HSM, No masses EXT: normal pedal pulses, normal capillary refill NEURO: awake, alert, no focal deficits SKIN: warm, dry PSYCH: normal mood, normal affect - Medications Medications: Current Medications Acetaminophen (Tylenol 325mg Tab) 650 mg PO Q6 PRN PRN Reason: Pain, Mild (1-3) Last Admin: 04/05/18 09:01 Dose: 650 mg Al Hydrox/Mg Hydrox/Simethicone (Maalox Plus 30 Ml) 30 ml PO Q6 PRN PRN Reason: Indigestion / Heartburn Albuterol/Ipratropium (Duoneb 3 Mg/0.5 Mg (3 Ml) Ud) 3 ml INH RQ6 [facility] Last Admin: 04/10/18 07:24 Dose: 3 ml Amlodipine Besylate (Norvasc) 5 mg PO DAILY [facility] Last Admin: 04/10/18 08:28 Dose: 5 mg Aspirin (Ecotrin) 81 mg PO DAILY [facility] Last Admin: 04/10/18 08:27 Dose: 81 mg Atorvastatin Calcium (Lipitor) 20 mg PO HS [facility] Last Admin: 04/09/18 21:10 Dose: 20 mg Calcium Carbonate (Oscal) 500 mg PO DAILY [facility] Last Admin: 04/10/18 08:29 Dose: 500 mg Dicyclomine HCl (Bentyl) 20 mg PO QID PRN PRN Reason: GI distress Last Admin: 04/10/18 10:03 Dose: 20 mg Enoxaparin Sodium (Lovenox) 40 mg SC DAILY [facility] PRN Reason: Protocol Last Admin: 04/10/18 08:28 Dose: 40 mg Ergocalciferol (Drisdol 50,000 Intl Units Cap) 1 cap PO FRI [facility] Last Admin: 04/06/18 08:59 Dose: 1 cap Losartan Potassium (Cozaar) 100 mg PO DAILY [facility] Last Admin: 04/10/18 08:27 Dose: 100 mg Metoclopramide HCl (Reglan) 10 mg IVP Q6 PRN PRN Reason: Nausea/Vomiting Last Admin: 04/06/18 10:48 Dose: 10 mg Metoprolol Tartrate (Lopressor) 50 mg PO BID [facility] Last Admin: 04/10/18 08:27 Dose: 50 mg Pantoprazole Sodium (Protonix Ec Tab) 40 mg PO DAILY [facility] Last Admin: 04/10/18 08:31 Dose: 40 mg Polyethylene Glycol (Miralax) 17 gm PO BID@0900,2000 PRN PRN Reason: constipation Pregabalin (Lyrica) 50 mg PO BID [facility] Last Admin: 04/10/18 08:31 Dose: 50 mg Primidone (Mysoline) 50 mg PO BID [facility] Last Admin: 04/10/18 08:28 Dose: 50 mg Tiotropium [place] (Spiriva) 18 mcg INH DAILY [facility] Last Admin: 04/10/18 08:29 Dose: 18 mcg Tramadol HCl (Ultram) 50 mg PO Q6 PRN PRN Reason: Pain, moderate (4-7) Last Admin: 04/05/18 13:14 Dose: 50 mg Trazodone HCl (Desyrel) 100 mg PO HS [facility] Last Admin: 04/09/18 21:10 Dose: 100 mg - Labs Labs: 04/03/18 05:45 04/09/18 05:35 Assessment and Plan - Assessment and Plan (Free Text) Plan: 77 yo male with history of CAD, HTN and OA had right TKR at [facility] on after failing conservative management. [place] bloated 1st day postop followed with abdominal distention associated with nausea . He had no BM but was able to pass flatus. Last BM was before surgery. Patient was transferred to TCU on 03/23/2018 for therapy. He continued to have abdominal distention with abdominal discomfort and nausea. Obstructive series showed ileus. GI and surgery were consulted and patient was put on laxative and NPO. He started passing out brownish liquid stools but continued to have abdominal distention and nausea. CT scan of abdomen with oral/IV contrast showed mild diffused dilatation of small bowel and colon without evidence of obstruction. He was restarted on clear liquid diet however, he started vomiting. He was sent to the ED for admission to medical floor. During his stay there, Pt was evaluated by Surgery and GI, patient tolerated PO diet and had soft BM. Admitted back to TCU for PT and doing well. 1. Primary Osteoarthritis s/p right TKR Participating well with PT Wound healing well , felix still in place Pain management with Tylenol , ultram PRN continue OT/PT DVT prophylaxis Consult with Dr. Torres physiatry appreciated 2. Post-op Ileus Bloating today, however has had BM and flatus today will closely monitor and reevaluate tomorrow colace , lactulose PRN 3. HTN BP stable continue Lopressor/ Losartan/Amlodipine 4. CAD stable continue ASA and Lipitor 5.Hypokalemia replaced 6. DVT prophylaxis continue Lovenox
--- NOTE | 2018-04-10 13:46 | CP.PCM.PN ---
Subjective - Date & Time of Evaluation Date of Evaluation: 04/10/18 Time of Evaluation: 10:30 - Subjective Subjective: patient with no acute knee pain Objective - Vital Signs/Intake and Output Vital Signs (last 24 hours): Temp Pulse Resp BP Pulse Ox 97.5 F L 99 H 19 119/71 94 L 04/10/18 10:00 04/10/18 10:00 04/10/18 10:00 04/10/18 10:00 04/10/18 10:00 - Medications Medications: Current Medications Acetaminophen (Tylenol 325mg Tab) 650 mg PO Q6 PRN PRN Reason: Pain, Mild (1-3) Last Admin: 04/05/18 09:01 Dose: 650 mg Al Hydrox/Mg Hydrox/Simethicone (Maalox Plus 30 Ml) 30 ml PO Q6 PRN PRN Reason: Indigestion / Heartburn Last Admin: 04/10/18 13:00 Dose: 30 ml Albuterol/Ipratropium (Duoneb 3 Mg/0.5 Mg (3 Ml) Ud) 3 ml INH RQ6 [facility] Last Admin: 04/10/18 13:29 Dose: 3 ml Amlodipine Besylate (Norvasc) 5 mg PO DAILY [facility] Last Admin: 04/10/18 08:28 Dose: 5 mg Aspirin (Ecotrin) 81 mg PO DAILY [facility] Last Admin: 04/10/18 08:27 Dose: 81 mg Atorvastatin Calcium (Lipitor) 20 mg PO HS [facility] Last Admin: 04/09/18 21:10 Dose: 20 mg Calcium Carbonate (Oscal) 500 mg PO DAILY [facility] Last Admin: 04/10/18 08:29 Dose: 500 mg Dicyclomine HCl (Bentyl) 20 mg PO QID PRN PRN Reason: GI distress Last Admin: 04/10/18 10:03 Dose: 20 mg Enoxaparin Sodium (Lovenox) 40 mg SC DAILY [facility] PRN Reason: Protocol Last Admin: 04/10/18 08:28 Dose: 40 mg Ergocalciferol (Drisdol 50,000 Intl Units Cap) 1 cap PO FRI [facility] Last Admin: 04/06/18 08:59 Dose: 1 cap Losartan Potassium (Cozaar) 100 mg PO DAILY [facility] Last Admin: 04/10/18 08:27 Dose: 100 mg Metoclopramide HCl (Reglan) 10 mg IVP Q6 PRN PRN Reason: Nausea/Vomiting Last Admin: 04/06/18 10:48 Dose: 10 mg Metoprolol Tartrate (Lopressor) 50 mg PO BID [facility] Last Admin: 04/10/18 08:27 Dose: 50 mg Pantoprazole Sodium (Protonix Ec Tab) 40 mg PO DAILY [facility] Last Admin: 04/10/18 08:31 Dose: 40 mg Polyethylene Glycol (Miralax) 17 gm PO BID@0900,2000 PRN PRN Reason: constipation Pregabalin (Lyrica) 50 mg PO BID [facility] Last Admin: 04/10/18 08:31 Dose: 50 mg Primidone (Mysoline) 50 mg PO BID [facility] Last Admin: 04/10/18 08:28 Dose: 50 mg Tiotropium [place] (Spiriva) 18 mcg INH DAILY [facility] Last Admin: 04/10/18 08:29 Dose: 18 mcg Tramadol HCl (Ultram) 50 mg PO Q6 PRN PRN Reason: Pain, moderate (4-7) Last Admin: 04/10/18 12:58 Dose: 50 mg Trazodone HCl (Desyrel) 100 mg PO [facility] Last Admin: 04/09/18 21:10 Dose: 100 mg - Labs Labs: 04/03/18 05:45 04/09/18 05:35 - Head Exam Head Exam: ATRAUMATIC, NORMAL INSPECTION, NORMOCEPHALIC - Eye Exam Eye Exam: EOMI, Normal appearance, PERRL Pupil Exam: NORMAL ACCOMODATION - ENT Exam ENT Exam: Mucous Membranes Moist, Normal Exam - Neck Exam Neck Exam: Normal Inspection - Respiratory Exam Respiratory Exam: Clear to Ausculation Bilateral, NORMAL BREATHING PATTERN - Cardiovascular Exam Cardiovascular Exam: REGULAR RHYTHM - GI/Abdominal Exam GI & Abdominal Exam: Soft, Normal Bowel Sounds - Rectal Exam Rectal Exam: NORMAL INSPECTION - Exam External exam: NORMAL EXTERNAL EXAM - Extremities Exam Extremities Exam: Full ROM, Normal Capillary Refill, Normal Inspection - Back Exam Back Exam: NORMAL INSPECTION - Neurological Exam Neurological Exam: Alert, Awake Neuro motor strength exam: Left Upper Extremity: 3, Right Upper Extremity: 3, Left Lower Extremity: 3, Right Lower Extremity: 3 - Psychiatric Exam Psychiatric exam: Normal Affect, Normal Mood - Skin Skin Exam: Dry, Intact Assessment and Plan (1) Acute blood loss anemia Status: Acute (2) Ileus Status: Acute (3) Primary osteoarthritis of right knee Assessment & Plan: plan to continue with physical, occupational therapy program. Monitor skin Status: Acute (4) Screen for colon cancer Status: Acute (5) HTN (hypertension) Status: Chronic (6) Internal hemorrhoid Status: Chronic (7) Vitamin D deficiency Status: Chronic
--- NOTE | 2018-04-10 14:46 | CP.PCM.CON ---
History of Present Illness - History of Present Illness History of Present Illness: General Surgery Consult note. Dr. Walden 77yo M with PMHx of CAD, HTN, OA seen in TCU for abdominal distention. Patient states that he has had abdominal distention since his R Knee replacement on 03/20. He is well known to our surgical service. Patient has had a post-operative ileus which improved with NGT decompression and conservative management. Consult requested today due to continued abdominal distention. Patient reports slight abdominal discomfort. He has had two bowel movements today and has been passing flatus. He denies any nausea, or vomiting. He has been tolerating his diet. He denies any F/C. No urinary complaints. No CP/SOB. No sick contacts. PMHx: CAD, HTN, OA, Cataracts, Anxiety PSHx: R Shoulder ORIF, R Knee replacement (03/20/18) Family Hx: Non-contributory Social Hx: Denies Tobacco use; Denies ETOH use; Denies illicit drugs NKDA Review of Systems - Review of Systems All systems: reviewed and no additional remarkable complaints except - Constitutional Constitutional: absent: Chills, Fever - Cardiovascular Cardiovascular: absent: Chest Pain, Dyspnea - Respiratory Respiratory: absent: Cough, Dyspnea - Gastrointestinal Gastrointestinal: Abdominal Pain, Bloating, Loose Stools. absent: Constipation , Nausea, Vomiting - Genitourinary Genitourinary: absent: Dysuria Past Patient History - Infectious Disease Hx of Infectious Diseases: None - Past Medical History & Family History Past Medical History?: Yes - Past Social History Smoking Status: Never Smoked - CARDIAC Hx Congestive Heart Failure: Yes Hx Hypercholesterolemia: Yes Hx Hypertension: Yes - PULMONARY Hx Respiratory Disorders: No - NEUROLOGICAL Hx Neurological Disorder: Yes Hx Dizziness: Yes (NO MEDICATIONS FOR DIZZINESS) Other/Comment: GENERALIZED TREMORS NO DX - HEENT Hx HEENT Problems: Yes (DECREASED IN HEARING-NO HEARING AIDS) Hx Cataracts: Yes (BILAT. NO SURGERY) - RENAL Hx Chronic Kidney Disease: No - ENDOCRINE/METABOLIC Hx Endocrine Disorders: No - HEMATOLOGICAL/ONCOLOGICAL Hx Blood Disorders: No Hx AIDS: No Hx Human Immunodeficiency Virus (HIV): No - INTEGUMENTARY Hx Dermatological Problems: No - MUSCULOSKELETAL/RHEUMATOLOGICAL Hx Arthritis: Yes Hx Falls: Yes Hx Osteoarthritis: Yes - GASTROINTESTINAL Hx Gastrointestinal Disorders: No - GENITOURINARY/GYNECOLOGICAL Hx Genitourinary Disorders: No - PSYCHIATRIC Hx Anxiety: Yes Hx Depression: Yes Hx Substance Use: No - SURGICAL HISTORY Hx Surgeries: Yes Hx Angioplasty: Yes (X 8- 10 YEARS AGO) Hx Cardiac Catheterization: Yes Hx Orthopedic Surgery: Yes (right shoulder) Other/Comment: Rt. Knee Arthroplasty,Total Knee Replacement.03/20/18 - ANESTHESIA Hx Anesthesia: Yes Hx Anesthesia Reactions: No Hx Malignant Hyperthermia: No Meds Allergies/Adverse Reactions: Allergies Allergy/AdvReac Type Severity Reaction Status Date / Time No Known Allergies Allergy Verified 04/01/18 16:11 - Medications Medications: Current Medications Acetaminophen (Tylenol 325mg Tab) 650 mg PO Q6 PRN PRN Reason: Pain, Mild (1-3) Last Admin: 04/05/18 09:01 Dose: 650 mg Al Hydrox/Mg Hydrox/Simethicone (Maalox Plus 30 Ml) 30 ml PO Q6 PRN PRN Reason: Indigestion / Heartburn Last Admin: 04/10/18 13:00 Dose: 30 ml Albuterol/Ipratropium (Duoneb 3 Mg/0.5 Mg (3 Ml) Ud) 3 ml INH RQ6 [facility] Last Admin: 04/10/18 13:29 Dose: 3 ml Amlodipine Besylate (Norvasc) 5 mg PO DAILY [facility] Last Admin: 04/10/18 08:28 Dose: 5 mg Aspirin (Ecotrin) 81 mg PO DAILY [facility] Last Admin: 04/10/18 08:27 Dose: 81 mg Atorvastatin Calcium (Lipitor) 20 mg PO HS [facility] Last Admin: 04/09/18 21:10 Dose: 20 mg Calcium Carbonate (Oscal) 500 mg PO DAILY [facility] Last Admin: 04/10/18 08:29 Dose: 500 mg Dicyclomine HCl (Bentyl) 20 mg PO QID PRN PRN Reason: GI distress Last Admin: 04/10/18 10:03 Dose: 20 mg Enoxaparin Sodium (Lovenox) 40 mg SC DAILY [facility] PRN Reason: Protocol Last Admin: 04/10/18 08:28 Dose: 40 mg Ergocalciferol (Drisdol 50,000 Intl Units Cap) 1 cap PO FRI [facility] Last Admin: 04/06/18 08:59 Dose: 1 cap Losartan Potassium (Cozaar) 100 mg PO DAILY [facility] Last Admin: 04/10/18 08:27 Dose: 100 mg Metoclopramide HCl (Reglan) 10 mg IVP Q6 PRN PRN Reason: Nausea/Vomiting Last Admin: 04/06/18 10:48 Dose: 10 mg Metoprolol Tartrate (Lopressor) 50 mg PO BID [facility] Last Admin: 04/10/18 08:27 Dose: 50 mg Pantoprazole Sodium (Protonix Ec Tab) 40 mg PO DAILY [facility] Last Admin: 04/10/18 08:31 Dose: 40 mg Polyethylene Glycol (Miralax) 17 gm PO BID@0900,2000 PRN PRN Reason: constipation Pregabalin (Lyrica) 50 mg PO BID [facility] Last Admin: 04/10/18 08:31 Dose: 50 mg Primidone (Mysoline) 50 mg PO BID [facility] Last Admin: 04/10/18 08:28 Dose: 50 mg Tiotropium [place] (Spiriva) 18 mcg INH DAILY [facility] Last Admin: 04/10/18 08:29 Dose: 18 mcg Tramadol HCl (Ultram) 50 mg PO Q6 PRN PRN Reason: Pain, moderate (4-7) Last Admin: 04/10/18 12:58 Dose: 50 mg Trazodone HCl (Desyrel) 100 mg PO HS [facility] Last Admin: 04/09/18 21:10 Dose: 100 mg Physical Exam - Constitutional Appears: Well, Non-toxic, No Acute Distress - Head Exam Head Exam: ATRAUMATIC, NORMAL INSPECTION, NORMOCEPHALIC - Eye Exam Eye Exam: EOMI, Normal appearance - ENT Exam ENT Exam: Mucous Membranes Moist - Respiratory Exam Respiratory Exam: NORMAL BREATHING PATTERN. absent: Accessory Muscle Use, Respiratory Distress - Cardiovascular Exam Cardiovascular Exam: RRR. absent: JVD - GI/Abdominal Exam GI & Abdominal Exam: Distended, Soft. absent: Firm, Guarding, Rebound, Rigid, Tenderness Additional comments: moderately distended, tympanic. Soft, no focal tenderness. No Rebound, no guarding, no peritoneal signs - Extremities Exam Extremities exam: Positive for: normal inspection. Negative for: calf tenderness Additional comments: Right knee bandage in place, clean, dry and intact. - Back Exam Back exam: NORMAL INSPECTION - Neurological Exam Neurological exam: Alert, Oriented x3 - Skin Skin Exam: Dry, Intact, Normal Color, Warm Results - Vital Signs Recent Vital Signs: Last Vital Signs Temp 97.5 F L 04/10/18 10:00 Pulse 99 H 04/10/18 10:00 Resp 19 04/10/18 10:00 BP 119/71 04/10/18 10:00 Pulse Ox 94 L 04/10/18 10:00 - Labs Result Diagrams: 04/03/18 05:45 04/09/18 05:35 Assessment & Plan - Assessment and Plan (Free Text) Assessment: 77yo M with post-operative ileus Plan: - Continue Reglan - Continue Miralax for bowel regimen - Advance diet to CLD. May advance diet as tolerated - No surgical intervention warranted at the present time. General surgery team will sign-off. Please re-consult as necessary. Further recs as per Dr. Iram Michaud PGY1 surgery pager: [phone]
[2018-04-10 16:34] VITALS: RESP 20
[2018-04-11] MEDS: Albuterol-Ipratrop 3 mg / 0.5 (3 ml) UD INH SCH ×3 (01:05→13:14)
[2018-04-11 06:42] LABS: HEMOGLOBIN 10.8 g/dL (12.0-18.0); MEAN CELL VOLUME 95.8 fl (80.0-94.0); MEAN CORPUSCULAR HEMOGLOBIN 32.8 pg (27.0-31.0); MEAN CORPUSCULAR HGB CONC 34.2 g/dL (33.0-37.0); RBC 3.3 Mil/uL (4.40-5.90); RED CELL DISTRIBUTION WIDTH 14.6 % (11.5-14.5)
[2018-04-11 07:53] VITALS: BP 104/58; PULSE 71; TEMP 97.5; O2SAT 98
[2018-04-11] MEDS: Tiotropium 18 mcg Cap For Inhalation INH SCH (08:23)
[2018-04-11] MEDS: Enoxaparin 40 mg Syringe SC SCH (08:25)
[2018-04-11] MEDS: Pantoprazole 40 mg EC Tab PO SCH (08:32)
--- NOTE | 2018-04-11 11:50 | CP.PCM.DIS ---
Provider - Provider Date of Admission: 04/01/18 16:11 Attending physician: Prabhakar Johnson DO Time Spent in preparation of Discharge (in minutes): 30 Hospital Course - Lab Results Lab Results: Most Recent Lab Values WBC 7.0 K/uL (4.8-10.8) 04/11/18 06:00 RBC 3.30 Mil/uL (4.40-5.90) L 04/11/18 06:00 Hgb 10.8 g/dL (12.0-18.0) L 04/11/18 06:00 Hct 31.6 % (35.0-51.0) L 04/11/18 06:00 MCV 95.8 fl (80.0-94.0) H 04/11/18 06:00 MCH 32.8 pg (27.0-31.0) H 04/11/18 06:00 MCHC 34.2 g/dL (33.0-37.0) 04/11/18 06:00 RDW 14.6 % (11.5-14.5) H 04/11/18 06:00 Plt Count 241 K/uL (130-400) D 04/11/18 06:00 Sodium 137 mmol/l (132-148) 04/09/18 05:35 Potassium 4.2 MMOL/L (3.6-5.0) 04/09/18 05:35 Chloride 100 mmol/L (98-107) 04/09/18 05:35 Carbon Dioxide 28 mmol/L (22-30) 04/09/18 05:35 Anion Gap 13 (10-20) 04/09/18 05:35 BUN 12 mg/dl (9-20) 04/09/18 05:35 Creatinine 1.2 mg/dl (0.8-1.5) 04/09/18 05:35 Est GFR ( Amer) > 60 04/09/18 05:35 Est GFR (Non-Af Amer) 59 04/09/18 05:35 Random Glucose 107 mg/dL (75-110) 04/09/18 05:35 Calcium 8.9 mg/dL (8.4-10.2) 04/09/18 05:35 C. difficile Ag & Toxin Negative (NEGATIVE) 04/01/18 19:20 - Hospital Course Hospital Course: 77 yo male with history of CAD, HTN and OA had right TKR at [facility] on after failing conservative management. [place] bloated 1st day postop followed with abdominal distention associated with nausea . He had no BM but was able to pass flatus. Last BM was before surgery. Patient was transferred to TCU on 03/23/2018 for therapy. He continued to have abdominal distention with abdominal discomfort and nausea. Obstructive series showed ileus. GI and surgery were consulted and patient was put on laxative and NPO. He started passing out brownish liquid stools but continued to have abdominal distention and nausea. CT scan of abdomen with oral/IV contrast showed mild diffused dilatation of small bowel and colon without evidence of obstruction. He was restarted on clear liquid diet however, he started vomiting. He was sent to the ED for admission to medical floor. During his stay there, Pt was evaluated by Surgery and GI, patient tolerated PO diet and had soft BM. Admitted back to TCU for PT and doing well. Patient tolerated PT well, one day prior to admission patient developed mild distension, no nausea, no emesis, continued to have flatus and bowel movements, today as well. Surgery reevaluated patient, nothing to do at this time. Patient improved today. Discussed with patient as well as patient family any indications for worsening symptoms (e.g., nausea, emesis, worsening distension, pain) that may prompt return to ER. Patient stable to be discharged home with encouraged ambulation, and follow up with PCP and Ortho. ASA 325 BID per Orthopedic Surgeon. 1. Primary Osteoarthritis s/p right TKR Participating well with PT Wound healing well , felix still in place Pain management with Tylenol , ultram PRN continue OT/PT DVT prophylaxis Consult with Dr. Torres physiatry appreciated 2. Post-op Ileus resolving colace , lactulose PRN 3. HTN BP stable continue Lopressor/ Losartan/Amlodipine 4. CAD stable continue ASA and Lipitor 5.Hypokalemia replaced 6. DVT prophylaxis continue Lovenox Discharge Exam - Head Exam Head Exam: ATRAUMATIC, NORMAL INSPECTION, NORMOCEPHALIC - Eye Exam Eye Exam: EOMI, Normal appearance, PERRL Pupil Exam: NORMAL ACCOMODATION - ENT Exam ENT Exam: Mucous Membranes Moist, Normal Oropharynx - Respiratory Exam Respiratory Exam: Clear to PA & Lateral, NORMAL BREATHING PATTERN - Cardiovascular Exam Cardiovascular Exam: RRR, +S1, +S2 - GI/Abdominal Exam GI & Abdominal Exam: Distended (mild, improving), Normal Bowel Sounds. absent: Mass, Organomegaly, Tenderness - Extremities Exam Extremities exam: normal capillary refill, pedal pulses present - Back Exam Back exam: absent: CVA tenderness (L), CVA tenderness (R), paraspinal tenderness , rash noted - Neurological Exam Neurological exam: Alert, Oriented x3 - Psychiatric Exam Psychiatric exam: Normal Affect, Normal Mood - Skin Skin Exam: Dry, Warm Discharge Plan - Discharge Medications Prescriptions: amLODIPine [Norvasc] 5 mg PO DAILY #30 tab Aspirin [Ecotrin] 325 mg PO Q12 #60 tabec Atorvastatin [Lipitor] 20 mg PO HS #30 tab Losartan [Cozaar] 100 mg PO DAILY #30 tab Metoprolol Tartrate 50 mg PO BID #60 tablet Pregabalin [Lyrica] 50 mg PO BID #60 cap Primidone [Mysoline] 50 mg PO BID #60 tab Tiotropium [Spiriva] 18 mcg INH RQ24 #30 cap - Follow Up Plan Condition: GOOD Disposition: HOME/ ROUTINE Instructions: Total Knee Replacement (DC), Postoperative Ileus (DC)
--- NOTE | 2018-04-11 13:17 | CP.PCM.PN ---
Subjective - Date & Time of Evaluation Date of Evaluation: 04/11/18 Time of Evaluation: 09:00 - Subjective Subjective: no acute knee pain Objective - Vital Signs/Intake and Output Vital Signs (last 24 hours): Temp Pulse Resp BP Pulse Ox 97.5 F L 71 20 104/58 L 98 04/11/18 07:52 04/11/18 08:27 04/11/18 07:52 04/11/18 08:27 04/11/18 07:52 - Medications Medications: Current Medications Acetaminophen (Tylenol 325mg Tab) 650 mg PO Q6 PRN PRN Reason: Pain, Mild (1-3) Last Admin: 04/05/18 09:01 Dose: 650 mg Al Hydrox/Mg Hydrox/Simethicone (Maalox Plus 30 Ml) 30 ml PO Q6 PRN PRN Reason: Indigestion / Heartburn Last Admin: 04/10/18 13:00 Dose: 30 ml Albuterol/Ipratropium (Duoneb 3 Mg/0.5 Mg (3 Ml) Ud) 3 ml INH RQ6 [facility] Last Admin: 04/11/18 13:14 Dose: 3 ml Amlodipine Besylate (Norvasc) 5 mg PO DAILY [facility] Last Admin: 04/11/18 08:27 Dose: 5 mg Aspirin (Ecotrin) 81 mg PO DAILY [facility] Last Admin: 04/11/18 08:23 Dose: 81 mg Atorvastatin Calcium (Lipitor) 20 mg PO HS [facility] Last Admin: 04/10/18 21:21 Dose: 20 mg Calcium Carbonate (Oscal) 500 mg PO DAILY [facility] Last Admin: 04/11/18 08:24 Dose: 500 mg Dicyclomine HCl (Bentyl) 20 mg PO QID PRN PRN Reason: GI distress Last Admin: 04/10/18 10:03 Dose: 20 mg Enoxaparin Sodium (Lovenox) 40 mg SC DAILY [facility] PRN Reason: Protocol Last Admin: 04/11/18 08:25 Dose: 40 mg Ergocalciferol (Drisdol 50,000 Intl Units Cap) 1 cap PO FRI [facility] Last Admin: 04/06/18 08:59 Dose: 1 cap Losartan Potassium (Cozaar) 100 mg PO DAILY [facility] Last Admin: 04/11/18 08:26 Dose: 100 mg Metoclopramide HCl (Reglan) 10 mg IVP Q6 PRN PRN Reason: Nausea/Vomiting Last Admin: 04/06/18 10:48 Dose: 10 mg Metoprolol Tartrate (Lopressor) 50 mg PO BID [facility] Last Admin: 04/11/18 08:24 Dose: 50 mg Pantoprazole Sodium (Protonix Ec Tab) 40 mg PO DAILY [facility] Last Admin: 04/11/18 08:32 Dose: 40 mg Polyethylene Glycol (Miralax) 17 gm PO BID@0900,2000 PRN PRN Reason: constipation Last Admin: 04/11/18 08:22 Dose: 17 gm Pregabalin (Lyrica) 50 mg PO BID [facility] Last Admin: 04/11/18 08:32 Dose: 50 mg Primidone (Mysoline) 50 mg PO BID [facility] Last Admin: 04/11/18 08:26 Dose: 50 mg Tiotropium [place] (Spiriva) 18 mcg INH DAILY [facility] Last Admin: 04/11/18 08:23 Dose: 18 mcg Tramadol HCl (Ultram) 50 mg PO Q6 PRN PRN Reason: Pain, moderate (4-7) Last Admin: 04/10/18 12:58 Dose: 50 mg Trazodone HCl (Desyrel) 100 mg PO [facility] Last Admin: 04/10/18 21:21 Dose: 100 mg - Labs Labs: 04/11/18 06:00 04/09/18 05:35 - Head Exam Head Exam: ATRAUMATIC, NORMAL INSPECTION, NORMOCEPHALIC - Eye Exam Eye Exam: EOMI, Normal appearance, PERRL Pupil Exam: NORMAL ACCOMODATION - ENT Exam ENT Exam: Mucous Membranes Moist, Normal Exam - Neck Exam Neck Exam: Normal Inspection - Respiratory Exam Respiratory Exam: Clear to Ausculation Bilateral, NORMAL BREATHING PATTERN - Cardiovascular Exam Cardiovascular Exam: REGULAR RHYTHM - GI/Abdominal Exam GI & Abdominal Exam: Soft, Normal Bowel Sounds - Rectal Exam Rectal Exam: NORMAL INSPECTION - Exam External exam: NORMAL EXTERNAL EXAM - Extremities Exam Extremities Exam: Full ROM, Normal Capillary Refill, Normal Inspection - Back Exam Back Exam: NORMAL INSPECTION - Neurological Exam Neurological Exam: Alert Neuro motor strength exam: Right Lower Extremity: 3 - Psychiatric Exam Psychiatric exam: Normal Affect, Normal Mood - Skin Skin Exam: Dry, Intact Assessment and Plan (1) Acute blood loss anemia Status: Acute (2) Ileus Status: Acute (3) Primary osteoarthritis of right knee Assessment & Plan: TKR status post physical, occupational therapy program plan for Dc follow up with PMD Status: Acute (4) Screen for colon cancer Status: Acute (5) HTN (hypertension) Status: Chronic (6) Internal hemorrhoid Status: Chronic (7) Vitamin D deficiency Status: Chronic
== END 2018-04-11 15:34 | disposition home or self-care (01) | DRG 560 ==
LOC: H.TCU 16:11
PROVIDERS: ADMIT Internal Medicine; ATTEND Internal Medicine
PROC: F07Z9FZ Gait Training/Functional Ambulation Treatment using Assistive, Adaptive, Supportive or Protective Equipment (ICD-10-PCS; principal; 2018-04-01)
PROC: F07L6FZ Therapeutic Exercise Treatment of Musculoskeletal System - Lower Back / Lower Extremity using Assistive, Adaptive, Supportive or Protective Equipment (ICD-10-PCS; 2018-04-01)
PROC: F07Z5ZZ Bed Mobility Treatment (ICD-10-PCS; 2018-04-01)
PROC: F07Z8ZZ Transfer Training Treatment (ICD-10-PCS; 2018-04-01)
PROC: F08Z1FZ Dressing Techniques Treatment using Assistive, Adaptive, Supportive or Protective Equipment (ICD-10-PCS; 2018-04-01)
PROC: F08Z0FZ Bathing/Showering Techniques Treatment using Assistive, Adaptive, Supportive or Protective Equipment (ICD-10-PCS; 2018-04-01)
DX: Z47.1 Aftercare following joint replacement surgery (principal); K56.7 Ileus, unspecified; D62 Acute posthemorrhagic anemia; Z96.651 Presence of right artificial knee joint; E87.6 Hypokalemia; I25.10 Atherosclerotic heart disease of native coronary artery without angina pectoris; I11.0 Hypertensive heart disease with heart failure; I50.9 Heart failure, unspecified; E78.00 Pure hypercholesterolemia, unspecified; E55.9 Vitamin D deficiency, unspecified; K64.8 Other hemorrhoids